=== PATIENT | female | born 1960 | race American Indian/Alaskan Native ===

== ENCOUNTER 2016-08-31 00:13 | Emergency (ER) | payer SELFPAY ==
[2016-08-31] MEDS ORDERED: TORADOL IV ONE (00:50)
[2016-08-31] MEDS ORDERED: CATAPRES PO ONE (00:50)
[2016-08-31] MEDS ORDERED: REGLAN IV ONE (00:50)
[2016-08-31] MEDS ORDERED: BENADRYL IV ONE (00:50)
--- NOTE | 2016-08-31 00:55 | Emergency Department Report ---
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 Patient has been noncompliant with her blood pressure medication and cholesterol medication 1 month. She has been compliant with her aspirin. Patient complains of a 10/10 right-sided headache with some mild eye discomfort and mild eye right blurred vision. Patient denies nausea, vomiting, light sensitivity, or new neurologic deficit. She does not have a primary care doctor. Patient's blood pressure 183/117 and patient appears to the patient's most recent baseline. Allergies/Adverse Reactions: Allergies Penicillins Allergy (Verified 11/06/12 04:01) Unknown Home Medications: Ambulatory Orders Aspirin [Aspirin TAB] 325 mg PO QDAY #30 tablet 01/25/14 Lisinopril/Hydrochlorothiazide [Zestoretic 20-12.5 mg] 1 tab PO BID #60 tablet 01/25/14 Butalb/Acetamin/Caff 50-325-40 [Fioricet] 2 tab PO Q4H PRN #20 tablet 08/31/16 Carvedilol [Coreg] 12.5 mg PO BID #60 tablet 08/31/16 Ibuprofen [Motrin] 800 mg PO Q8HR PRN #30 tablet 08/31/16 Lisinopril/Hydrochlorothiazide [Zestoretic 20-12.5 mg] 1 tab PO QDAY #30 tab Simvastatin [Zocor TAB] 20 mg PO QHS #30 tablet 08/31/16 ED Review of Systems ROS: Stated complaint: HIGH BP Other details as noted in HPI Comment: All other systems reviewed and negative Other: Constitutional: No fevers chills Eyes: As per HPI ENT: No ear pain or throat pain Neck: Denies pain Respiratory: Denies cough wheezing shortness of breath Cardiovascular: Denies chest pain, palpitations, syncope GI: Denies abdominal pain, nausea, vomiting, diarrhea : Denies dysuria, urinary frequency, or urgency Musculoskeletal: Denies back pain, joint swelling Skin: Denies rash, lesions, erythema Neurologic: Denies numbness, weakness Psychiatric: Denies suicidal ideation, hallucinations ED Past Medical Hx - Past Medical History Hx Hypertension: Yes (2012) Hx CVA: Yes (11-05-2012) Hx Heart Attack/AMI: No Hx Congestive Heart Failure: No Hx Diabetes: No Hx Deep Vein Thrombosis: No Hx Pulmonary Embolism: No Hx Liver Disease: No Hx Renal Disease: No Hx Sickle Cell Disease: No Hx Arthritis: No Hx Seizures: No Hx Kidney Stones: No Hx Asthma: No Hx COPD: No Hx Tuberculosis: No Hx Dementia: No - Surgical History Hx Coronary Stent: No Hx Pacemaker: No Hx Internal Defibrillator: No - Social History Smoking Status: Former Smoker - Medications Home Medications: Home Medications Medication Instructions Recorded Confirmed Last Taken Type Aspirin [Aspirin TAB] 325 mg PO QDAY #30 tablet 01/25/14 Unknown Rx Lisinopril/Hydrochlorothiazide 1 tab PO BID #60 tablet 01/25/14 Unknown Rx [Zestoretic 20-12.5 mg] Butalb/Acetamin/Caff 50-325-40 2 tab PO Q4H PRN #20 tablet 08/31/16 Unknown Rx [Fioricet] Carvedilol [Coreg] 12.5 mg PO BID #60 tablet 08/31/16 Unknown Rx Ibuprofen [Motrin] 800 mg PO Q8HR PRN #30 tablet 08/31/16 Unknown Rx Lisinopril/Hydrochlorothiazide 1 tab PO QDAY #30 tab 08/31/16 Unknown Rx [Zestoretic 20-12.5 mg] Simvastatin [Zocor TAB] 20 mg PO QHS #30 tablet 08/31/16 Unknown Rx ED Physical Exam - Other Other exam information: General: No limitations, patient is alert in no acute distress Head exam: Atraumatic, normocephalic Eyes exam: Normal appearance, pupils equal reactive to light, extraocular movements intact. Light sensitivity to right eye ENT: Moist mucous membrane, right maxillary sinus tenderness Neck exam: Normal inspection, full range of motion, no meningismus nontender Respiratory exam: Clear to auscultation bilateral, no wheezes, rales, crackles Cardiovascular: Normal rate and rhythm, normal heart sounds Abdomen: Soft, nondistended, and nontender, with normal bowel sounds, no rebound, or guarding Extremity: Full range of motion normal inspection no deformity Back: Normal Inspection, full range of motion, no tenderness Neurologic: Alert, oriented x3, cranial nerves intact, 4+/5 strength right upper and right lower extremity with decreased sensation to touch compared to the left. Left 5/5 strength. Patient admits with a cane, speech clear and fluid Psychiatric: normal affect, normal mood Skin: Warm, dry, intact ED Course Vital Signs 08/31/16 08/31/16 08/31/16 00:31 01:05 02:33 Temperature 98.2 F 98.2 F Pulse Rate 98 H 98 H 90 Respiratory 18 18 16 Rate Blood Pressure 183/117 Blood Pressure 183/117 158/100 [Left] O2 Sat by Pulse 100 100 98 Oximetry - Reevaluation(s) Reevaluation #1: 08/31/16 00:56 Clonidine, Reglan, Benadryl, and Toradol ordered. CT head and labs pending Reevaluation #2: 08/31/16 03:59 The patient and downward. Started to slightly increased in for lisinopril 20 mg given prior to discharge. Patient's headache improved after receiving additional Dilaudid ED Medical Decision Making - Lab Data Result diagrams: 08/31/16 01:39 08/31/16 01:39 Lab Results 08/31/16 08/31/16 Range/Units 01:39 01:39 WBC 5.7 (4.5-11.0) K/mm3 RBC 4.43 (3.65-5.03) M/mm3 Hgb 12.6 (10.1-14.3) gm/dl Hct 38.3 (30.3-42.9) % MCV 87 (79-97) fl MCH 29 (28-32) pg MCHC 33 (30-34) % RDW 16.9 H (13.2-15.2) % Plt Count 264 (140-440) K/mm3 Lymph % (Auto) 43.2 H (13.4-35.0) % [place] % (Auto) 8.9 H (0.0-7.3) % Eos % (Auto) 4.9 H (0.0-4.3) % Baso % (Auto) 0.6 (0.0-1.8) % Lymph # 2.5 (1.2-5.4) K/mm3 [place] # 0.5 (0.0-0.8) K/mm3 Eos # 0.3 (0.0-0.4) K/mm3 Baso # 0.0 (0.0-0.1) K/mm3 Seg Neutrophils % 42.4 (40.0-70.0) % Seg Neutrophils # 2.4 (1.8-7.7) K/mm3 Sodium 142 (137-145) mmol/L Potassium 3.7 (3.6-5.0) mmol/L Chloride 101.9 (98-107) mmol/L Carbon Dioxide 23 (22-30) mmol/L Anion Gap 21 mmol/L BUN 23 H (7-17) mg/dL Creatinine 1.2 (0.7-1.2) mg/dL Estimated GFR 56 ml/min BUN/Creatinine Ratio 19.16 % Glucose 89 (65-100) mg/dL Calcium 9.1 (8.4-10.2) mg/dL - Radiology Data Radiology results: report reviewed (ct head: naf) - Medical Decision Making Patient's blood pressures trending downward. Patient has a history of hypertension and medication noncompliance. Headache improved. BP-is improving. Patient given dose lisinopril prior to discharge and I will resume her previously prescribed medications. - Differential Diagnosis hypertensive urgency/emergency, migraine, sinusitis, headache Critical Care Time: No Critical care attestation.: If time is entered above; I have spent that time in minutes in the direct care of this critically ill patient, excluding procedure time. ED Disposition Clinical Impression: Uncontrolled hypertension, Noncompliance with medication regimen, Headache Disposition: DC-01 TO HOME OR SELFCARE Is pt being admited?: No Does the pt Need Aspirin: No Condition: Stable Instructions: Hypertension (ED), Acute Headache (ED) Additional Instructions: Take the Medication as prescribed. Follow-up with the clinical doctor provided. Return if symptoms worsen. Prescriptions: Butalb/Acetamin/Caff 50-325-40 [Fioricet] 2 tab PO Q4H PRN #20 tablet PRN Reason: Headache Carvedilol [Coreg] 12.5 mg PO BID #60 tablet Ibuprofen [Motrin] 800 mg PO Q8HR PRN #30 tablet PRN Reason: Pain Lisinopril/Hydrochlorothiazide [Zestoretic 20-12.5 mg] 1 tab PO QDAY #30 tab Simvastatin [Zocor TAB] 20 mg PO QHS #30 tablet Referrals: [facility] [Provider Group] - 2-3 Days GOLDY CLAY MD [Staff Physician] - 2-3 Days Time of Disposition: 03:58
[2016-08-31 02:12] LABS: Basophils % (Auto) 0.6 % (0.0-1.8); Eosinophils % (Auto) 4.9 % (0.0-4.3); Hematocrit 38.3 % (30.3-42.9); Hemoglobin 12.6 gm/dl (10.1-14.3); Mean Corpuscular HGB Conc 33 % (30-34); Mean Corpuscular Hemoglobin 29 pg (28-32); Mean Corpuscular Volume 87 fl (79-97); Platelet Count 264 K/mm3 (140-440); Red Blood Count 4.43 M/mm3 (3.65-5.03); Red Cell Distribution Width 16.9 % (13.2-15.2); White Blood Count 5.7 K/mm3 (4.5-11.0)
[2016-08-31 02:25] LABS: BUN/Creatinine Ratio 19.16; Calcium 9.1 mg/dL (8.4-10.2); Chloride 101.9 mmol/L (98-107); Potassium 3.7 mmol/L (3.6-5.0)
[2016-08-31] MEDS ORDERED: DILAUDID ONE (02:35)
[2016-08-31 02:36] VITALS: BP 158/100
[2016-08-31] MEDS ORDERED: DILAUDID IV ONE (02:45)
--- NOTE | 2016-08-31 02:57 | Cat Scan Report ---
FINAL REPORT PROCEDURE: CT HEAD/BRAIN WO CON TECHNIQUE: Computerized tomography of the head was performed without contrast material. HISTORY: r sided carr, htn COMPARISON: No prior studies are available for comparison. FINDINGS: Skull and scalp: Normal. Paranasal sinuses: Slight opacification of the ethmoid sinuses.. Ventricles and subarachnoid spaces: Normal. Cerebrum: There is no evidence of acute intracranial hemorrhage, hematoma, infarction, midline displacement or mass. Mild periventricular deep white matter changes are noted.. Cerebellum and brainstem: No evidence of hemorrhage, acute infarction or mass. Vasculature: Normal. Comments: None. IMPRESSION: There is no evidence of an acute intracranial process. Mild periventricular deep white matter changes are noted.
[2016-08-31] MEDS ORDERED: ZESTRIL PO ONE (03:48)
[2016-08-31] MEDS ORDERED: HCTZ PO ONE (03:48)
[2016-08-31] MEDS ORDERED: COREG PO ONE (03:49)
== END 2016-08-31 04:30 | disposition home or self-care (01) ==
LOC: ED 00:13
DX: I10 Essential (primary) hypertension (principal); Z91.14 Patient's other noncompliance with medication regimen; Z87.891 Personal history of nicotine dependence
CPT/HCPCS: 36415; 70450; 80048; 85025; 96374; 96375; 99284; J1170; J1200; J1885; J2765

== ENCOUNTER 2016-09-02 03:41 | Emergency (ER) | payer SELFPAY ==
[2016-09-02] MEDS ORDERED: NORMODYNE IV ONE (03:48)
[2016-09-02 04:24] LABS: Basophils % (Auto) 0.5 % (0.0-1.8); Eosinophils % (Auto) 4.2 % (0.0-4.3); Hematocrit 36.7 % (30.3-42.9); Mean Corpuscular HGB Conc 33 % (30-34); Mean Corpuscular Hemoglobin 28 pg (28-32); Mean Corpuscular Volume 86 fl (79-97); Platelet Count 255 K/mm3 (140-440); Red Blood Count 4.28 M/mm3 (3.65-5.03); Red Cell Distribution Width 15.9 % (13.2-15.2); White Blood Count 7.5 K/mm3 (4.5-11.0)
[2016-09-02] MEDS ORDERED: MORPHINE IV ONE (04:30)
[2016-09-02] MEDS ORDERED: MORPHINE ONE (04:35)
[2016-09-02 04:39] LABS: BUN/Creatinine Ratio 21.53; Calcium 9.6 mg/dL (8.4-10.2); Chloride 102.3 mmol/L (98-107); Potassium 3.4 mmol/L (3.6-5.0)
--- NOTE | 2016-09-02 04:46 | Cat Scan Report ---
FINAL REPORT PROCEDURE: CT HEAD/BRAIN WO CON TECHNIQUE: Computerized tomography of the head was performed without contrast material. HISTORY: ENGLISH with hypertension COMPARISON: 08/31/2016 FINDINGS: Skull and scalp: Normal. Paranasal sinuses: Normal. Ventricles and subarachnoid spaces: There is moderate central and cortical atrophy. There is no hydrocephalus.. Cerebrum: No evidence of hemorrhage, acute infarction or mass. There is periventricular deep white matter ischemic gliosis. The free wall there are multiple old lacunar infarcts in the basal ganglia, thalami and deep white matter bilaterally. Cerebellum and brainstem: No evidence of hemorrhage, acute infarction or mass. Vasculature: Normal. Comments: None. IMPRESSION: There are chronic involutional changes. There is no acute abnormality.
[2016-09-02] MEDS ORDERED: APRESOLINE IV ONE (05:13)
--- NOTE | 2016-09-02 05:58 | Emergency Department Report ---
HPI - General Chief Complaint: High BP Time Seen by Provider: 09/02/16 05:53 - HPI HPI: This is a 56-year-old Afro-[place] female presents to the emergency department via EMS with complaint of a right-sided headache and elevated blood pressure. The patient has a history of hypertensive issues and medication noncompliance. However the patient recently was here to the [facility] for similar symptoms and was restarted on all of her previous blood pressure medications that she says she has been taking them compliantly. The headache is to the right side of her head but she denies any vision change, slurred speech or any neurological deficits. She also denies any chest pain, shortness breath, fever. She did not take anything for her symptoms prior to presentation. All this began just prior to presentation and woke her from sleep. She has a past nuchal history of CVA with some mild right-sided deficits in the distal extremities, as well as hypertension. She does not have a primary care doctor. No recent travel or sick contacts at home. ED Past Medical Hx - Past Medical History Previous Medical History?: Yes Hx Hypertension: Yes (2012) Hx CVA: Yes (11-05-2012) Hx Heart Attack/AMI: No Hx Congestive Heart Failure: No Hx Diabetes: No Hx Deep Vein Thrombosis: No Hx Pulmonary Embolism: No Hx Liver Disease: No Hx Renal Disease: No Hx Sickle Cell Disease: No Hx Arthritis: No Hx Seizures: No Hx Kidney Stones: No Hx Asthma: No Hx COPD: No Hx Tuberculosis: No Hx Dementia: No - Surgical History Hx Coronary Stent: No Hx Pacemaker: No Hx Internal Defibrillator: No - Social History Smoking Status: Never Smoker Substance Use Type: None - Medications Home Medications: Home Medications Medication Instructions Recorded Confirmed Last Taken Type Aspirin [Aspirin TAB] 325 mg PO QDAY #30 tablet 01/25/14 09/02/16 Unknown Rx Lisinopril/Hydrochlorothiazide 1 tab PO BID #60 tablet 01/25/14 09/02/16 Unknown Rx [Zestoretic 20-12.5 mg] Butalb/Acetamin/Caff 50-325-40 2 tab PO Q4H PRN #20 tablet 08/31/16 09/02/16 Unknown Rx [Fioricet] Carvedilol [Coreg] 12.5 mg PO BID #60 tablet 08/31/16 09/02/16 Unknown Rx Ibuprofen [Motrin] 800 mg PO Q8HR PRN #30 tablet 08/31/16 09/02/16 Unknown Rx Lisinopril/Hydrochlorothiazide 1 tab PO QDAY #30 tab 08/31/16 09/02/16 Unknown Rx [Zestoretic 20-12.5 mg] Simvastatin [Zocor TAB] 20 mg PO QHS #30 tablet 08/31/16 09/02/16 Unknown Rx ED Review of Systems ROS: Stated complaint: HIGH BP /HEADACHE Other details as noted in HPI Comment: All other systems reviewed and negative Constitutional: denies: chills, fever Eyes: denies: eye pain, eye discharge, vision change ENT: denies: ear pain, throat pain Respiratory: denies: cough, shortness of breath, wheezing Cardiovascular: denies: chest pain, palpitations Gastrointestinal: denies: abdominal pain, nausea, diarrhea Genitourinary: denies: urgency, dysuria, discharge Musculoskeletal: denies: back pain, joint swelling, arthralgia Skin: denies: rash, lesions Neurological: headache. denies: weakness, numbness Physical Exam - Physical Exam Vital Signs: Vital Signs 09/02/16 09/02/16 09/02/16 03:43 04:00 04:35 Temperature 98.4 F Pulse Rate 93 H 87 Respiratory 18 18 Rate Blood Pressure 238/138 256/138 09/02/16 09/02/16 05:05 05:29 Temperature Pulse Rate Respiratory 18 Rate Blood Pressure 181/117 Physical Exam: GENERAL: The patient is well-developed well-nourished. HEENT: Normocephalic. Atraumatic. Extraocular motions are intact. Patient has moist mucous membranes. Pupils equal reactive to light bilaterally. No nystagmus. NECK: Supple. Trachea is midline. CHEST/LUNGS: Clear to auscultation. There is no respiratory distress noted. HEART/CARDIOVASCULAR: Regular. There is no tachycardia. There is no gallop rub or murmur. ABDOMEN: Abdomen is soft, nontender. Patient has normal bowel sounds. There is no abdominal distention. SKIN: Skin is warm and dry. NEURO: The patient is awake, alert, and oriented. The patient is cooperative. The patient has no focal neurologic deficits. The patient has normal speech. Cranial nerves II-12 grossly intact. No pronator drift. MUSCULOSKELETAL: There is no tenderness or deformity. There is no limitation range of motion. There is no evidence of acute injury. Muscle strength 5 out of 5 upper and lower extremities bilaterally. ED Course Vital Signs 09/02/16 09/02/16 09/02/16 03:43 04:00 04:35 Temperature 98.4 F Pulse Rate 93 H 87 Respiratory 18 18 Rate Blood Pressure 238/138 256/138 09/02/16 09/02/16 05:05 05:29 Temperature Pulse Rate Respiratory 18 Rate Blood Pressure 181/117 ED Medical Decision Making - Lab Data Result diagrams: 09/02/16 04:00 09/02/16 04:00 - EKG Data -: EKG Interpreted by Me EKG shows normal: sinus rhythm, axis, intervals, QRS complexes, ST-T waves Rate: normal - EKG Data When compared to previous EKG there are: previous EKG unavailable - Radiology Data Radiology results: report reviewed CT of the head does not show any acute process including no hemorrhage, mass, shift, diffuse edema or skull fracture. - Medical Decision Making 56-year-old female presents to the emergency department with a right-sided headache and uncontrolled hypertension. This is very similar to her previous visit. She does not appear to have any focal, motor or sensory deficits in her cranial nerves are intact. Blood pressure is about systolic to 30 upon arrival. She was given a dose of labetalol, pain medication for her headache, and then a small dose of hydralazine and her blood pressure came down to a much more reasonable level. The headache completely resolved. Labs are mostly unremarkable. There is some mild renal insufficiency but it is consistent with previous visits and most likely secondary to her history of uncontrolled hypertension. Normal thyroid function. She appears safe for discharge home at this time. She still has blood pressure medications for her previous visit. She'll be given multiple referrals for primary care clinics. She will return to the ER with any worsening of her symptoms or any acute distress. - Differential Diagnosis hypertensive urgency, TIA, tension headache, brain bleed Critical Care Time: No Critical care attestation.: If time is entered above; I have spent that time in minutes in the direct care of this critically ill patient, excluding procedure time. ED Disposition Clinical Impression: Hypertensive urgency Headache Qualifiers: Headache type: unspecified Headache chronicity pattern: acute headache Intractability: not intractable Qualified Code(s): R51 - Headache Disposition: - TO HOME OR SELFCARE Is pt being admited?: No Condition: Stable Instructions: Acute Headache (ED), Hypertension (ED) Additional Instructions: Please follow-up with one of the primary care clinics that you have been given a referral to. Return to the emergency department with any worsening of your symptoms or any acute distress. Try to stay away from foods that are high in salt and caffeinated products to assist with her blood pressure. Keep a blood pressure log. Referrals: PRIMARY CARE, [Primary Care Provider] - 3-[address] [facility] [place] [Outside] - 3-5 Days [facility] [Outside] - 3-5 Days [facility] [Outside] - 3-5 Days [facility] [Outside] - 3-5 Days Time of Disposition: 06:01
[2016-09-02] MEDS ORDERED: ZOFRAN IV ONE (06:18)
[2016-09-02 07:44] VITALS: BP 143/86
== END 2016-09-02 08:30 | disposition home or self-care (01) ==
LOC: ED 03:41
DX: I10 Essential (primary) hypertension (principal); Z86.73 Personal history of transient ischemic attack (TIA), and cerebral infarction without residual deficits; Z79.82 Long term (current) use of aspirin
CPT/HCPCS: 36415; 70450; 80048; 84443; 85025; 93005; 93010; 96374; 96375; 99284; J0360; J2270; J2405

== ENCOUNTER 2017-04-19 09:50 | Emergency (ER) | payer SELFPAY ==
[2017-04-19] MEDS ORDERED: CATAPRES ONE (10:51)
[2017-04-19] MEDS ORDERED: CATAPRES PO ONE (10:54)
[2017-04-19] MEDS ORDERED: NORCO 7.5/325 PO ONE (12:50)
--- NOTE | 2017-04-19 13:31 | Emergency Department Report ---
Blank Doc - Documentation Documentation: Patient is a 56-year-old black female who is presenting with left foot pain. Patient has pain in the left lateral foot near the pinky toe. Patient states is been present for approximately 2 weeks. 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 Patient also has elevated blood pressure as well. Patient states she doesn't take her blood pressure medicines like she should. Patient denies any signs of end organ damage. Patient denies headache chest pain shortness of breath decreased urination at this time. Patient will have x-ray of her foot taken an outpatient with intermittent blood pressure control.
--- NOTE | 2017-04-19 14:06 | XRay Report ---
LEFT FOOT, 3 views: History: Small toe pain Mild osteopenia. Mild osteoarthritic changes throughout the left foot. No evidence for fracture, erosive joint pathology or bone lesion. Soft tissues are unremarkable. IMPRESSION: No acute injury is appreciated. Mild osteoarthritis.
--- NOTE | 2017-04-19 14:50 | Emergency Department Report ---
ED Lower Extremity HPI - General Chief Complaint: Extremity Injury, Lower Stated Complaint: LEFT FOOT TOE PAIN Time Seen by Provider: 04/19/17 12:45 Source: patient Mode of arrival: Ambulatory Limitations: No Limitations - History of Present Illness Initial Comments: This is a 56-year-old female nontoxic, well nourished in appearance, no acute signs of distress presents to the ED with c/o of left foot pain near the pinky toe acute on chronic 2 weeks. 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 Denies any trauma to the region. Patient denies any numbness, tingling, joint swelling, joint redness, fever, chills, nausea, vomiting, chest pain or shortness of breath. Patient also states she is noncompliant with her medication as she is out of her blood pressure medication. Patient stated she currently takes 3 different medication and needs refill. Patient denies any headache or blurred vision. Patient denies any signs of end organ damage. Patient denies any decreased urination. Patient states allergies to penicillin with past medical history of hypertension , CVA. MD Complaint: foot injury -: week(s) (2) Injury: Foot: Left Place: work Severity: mild Severity scale (0 -10): 8 Improves With: immobilization Worsens With: movement Associated Symptoms: able to partially bear weight, ambulatory. denies: snap/ pop sensation, swelling, numbness, tingling, unable to bear weight - Related Data Previous Rx's Medication Instructions Recorded Last Taken Type Aspirin [Aspirin TAB] 325 mg PO QDAY #30 tablet 01/25/14 Unknown Rx Carvedilol [Coreg] 12.5 mg PO BID #60 tablet 08/31/16 Unknown Rx Ibuprofen [Motrin] 800 mg PO Q8HR PRN #30 tablet 08/31/16 Unknown Rx Lisinopril/Hydrochlorothiazide 1 tab PO QDAY #30 tab 08/31/16 Unknown Rx [Zestoretic 20-12.5 mg] Simvastatin [Zocor TAB] 20 mg PO QHS #30 tablet 08/31/16 Unknown Rx Carvedilol 12.5 mg PO BID #60 tablet 04/19/17 Unknown Rx Ibuprofen [Motrin] 600 mg PO Q8H PRN #30 tablet 04/19/17 Unknown Rx Lisinopril/Hydrochlorothiazide 1 each PO DAILY #30 tablet 04/19/17 Unknown Rx [Zestoretic 20-12.5 mg] Simvastatin 20 mg PO QHS #30 tablet 04/19/17 Unknown Rx Allergies Allergy/AdvReac Type Severity Reaction Status Date / Time Penicillins Allergy Unknown Verified 11/06/12 04:01 ED Review of Systems ROS: Stated complaint: LEFT FOOT TOE PAIN Other details as noted in HPI Constitutional: denies: chills, fever Eyes: denies: eye pain, eye discharge, vision change ENT: denies: ear pain, throat pain Respiratory: denies: cough, shortness of breath, wheezing Cardiovascular: denies: chest pain, palpitations Endocrine: no symptoms reported Gastrointestinal: denies: abdominal pain, nausea, diarrhea Genitourinary: denies: urgency, dysuria, discharge Musculoskeletal: arthralgia. denies: back pain, joint swelling Skin: denies: rash, lesions Neurological: denies: headache, weakness, paresthesias Psychiatric: denies: anxiety, depression Hematological/Lymphatic: denies: easy bleeding, easy bruising ED Past Medical Hx - Past Medical History Previous Medical History?: Yes Hx Hypertension: Yes (2012) Hx CVA: Yes (11-05-2012) Hx Heart Attack/AMI: No Hx Congestive Heart Failure: No Hx Diabetes: No Hx Deep Vein Thrombosis: No Hx Pulmonary Embolism: No Hx Liver Disease: No Hx Renal Disease: No Hx Sickle Cell Disease: No Hx Arthritis: No Hx Seizures: No Hx Kidney Stones: No Hx Asthma: No Hx COPD: No Hx Tuberculosis: No Hx Dementia: No - Surgical History Past Surgical History?: No Hx Coronary Stent: No Hx Pacemaker: No Hx Internal Defibrillator: No - Social History Smoking Status: Former Smoker Substance Use Type: Alcohol - Medications Home Medications: Home Medications Medication Instructions Recorded Confirmed Last Taken Type Aspirin [Aspirin TAB] 325 mg PO QDAY #30 tablet 01/25/14 04/19/17 Unknown Rx Carvedilol [Coreg] 12.5 mg PO BID #60 tablet 08/31/16 04/19/17 Unknown Rx Ibuprofen [Motrin] 800 mg PO Q8HR PRN #30 tablet 08/31/16 04/19/17 Unknown Rx Lisinopril/Hydrochlorothiazide 1 tab PO QDAY #30 tab 08/31/16 04/19/17 Unknown Rx [Zestoretic 20-12.5 mg] Simvastatin [Zocor TAB] 20 mg PO QHS #30 tablet 08/31/16 04/19/17 Unknown Rx Carvedilol 12.5 mg PO BID #60 tablet 04/19/17 Unknown Rx Ibuprofen [Motrin] 600 mg PO Q8H PRN #30 tablet 04/19/17 Unknown Rx Lisinopril/Hydrochlorothiazide 1 each PO DAILY #30 tablet 04/19/17 Unknown Rx [Zestoretic 20-12.5 mg] Simvastatin 20 mg PO QHS #30 tablet 04/19/17 Unknown Rx ED Physical Exam - General Limitations: No Limitations General appearance: alert, in no apparent distress - Head Head exam: Present: atraumatic, normocephalic - Eye Eye exam: Present: normal appearance, PERRL, EOMI Pupils: Present: normal accommodation - ENT ENT exam: Present: normal exam, normal orophraynx, mucous membranes moist, TM's normal bilaterally, normal external ear exam - Neck Neck exam: Present: normal inspection, full ROM. Absent: tenderness, meningismus, lymphadenopathy, thyromegaly - Respiratory Respiratory exam: Present: normal lung sounds bilaterally. Absent: respiratory distress, wheezes, rales, rhonchi, stridor, chest wall tenderness, accessory muscle use, decreased breath sounds, prolonged expiratory - Cardiovascular Cardiovascular Exam: Present: regular rate, normal rhythm, normal heart sounds. Absent: bradycardia, tachycardia, irregular rhythm, systolic murmur, diastolic murmur, rubs, gallop - GI/Abdominal GI/Abdominal exam: Present: soft, normal bowel sounds. Absent: distended, tenderness, guarding, rebound, rigid, diminished bowel sounds - Rectal Rectal exam: Present: deferred - Extremities Exam Extremities exam: Present: normal inspection, full ROM, tenderness, normal capillary refill. Absent: pedal edema, joint swelling, calf tenderness - Expanded Lower Extremity Exam Left Hip exam: Present: normal inspection, full ROM Upper Leg exam: Present: normal inspection, full ROM Knee exam: Present: normal inspection, full ROM Lower Leg exam: Present: normal inspection, full ROM Ankle exam: Present: normal inspection, full ROM. Absent: tenderness, swelling , abrasion, laceration, ecchymosis, deformity, crepidus, dislocation, erythema, anterior draw sign Foot/Toe exam: Present: normal inspection, full ROM, tenderness. Absent: swelling, abrasion, laceration, ecchymosis, deformity, crepidus, dislocation, erythema, amputation, puncture wound, calcaneal tenderness, tenderness at base of 5th metatarsal, nail avulsion, subungual hematoma Neuro vascular tendon exam: Present: no vascular compromise. Absent: pulse deficit, abnormal cap refill, motor deficit, sensory deficit, tendon deficit, extremity cold to touch, pallor, abnormal 2-point discrimination, decreased fine /light touch, foot drop, peroneal nerve deficit, significant pain with passive ROM of distal joint Gait: Positive: observed and limited by pain 1 - pain - Back Exam Back exam: Present: normal inspection, full ROM. Absent: tenderness, CVA tenderness (R), CVA tenderness (L), muscle spasm, paraspinal tenderness, vertebral tenderness, rash noted - Neurological Exam Neurological exam: Present: alert, oriented X3, CN II-XII intact, normal gait, reflexes normal - Psychiatric Psychiatric exam: Present: normal affect, normal mood - Skin Skin exam: Present: warm, dry, intact, normal color. Absent: rash ED Course Vital Signs 04/19/17 04/19/17 04/19/17 10:43 10:48 10:54 Temperature 98.5 F Pulse Rate 89 74 Respiratory 16 Rate Blood Pressure 250/133 Blood Pressure 250/133 [Right] O2 Sat by Pulse 99 Oximetry 04/19/17 04/19/17 04/19/17 12:54 12:57 13:01 Temperature Pulse Rate 75 Respiratory 16 18 16 Rate Blood Pressure Blood Pressure 168/113 [Right] O2 Sat by Pulse 98 98 Oximetry - Reevaluation(s) Reevaluation #1: 04/19/17 14:51 Patient is speaking in full sentences with no signs of distress noted. - Consultations Consultation #1: 04/19/17 14:52 Patient has been consulted with Dr. Lambert about patient history, physical exam , and labs and examined and screened patient and agrees to ED plan of care and discharge plan of care. ED Lower Extremity MDM - Medical Decision Making this is a 56-year-old female that presents with hypertension and left foot strain. Patient is stable and was examined by me and Dr. Lambert. X-ray has been obtained and dictated by radiologist within normal limits. Patient is notified of the x-ray results with focus noted by the patient. Patient received Catapres in the ED which blood pressure has decreased. Patient's medication has been refilled for her blood pressure. Patient was instructed to keep a daily diary of blood pressure and presented to primary care doctor. Patient received a ortho shoe at discharge. Patient was also instructed to Follow-up with a primary care doctor in 3-5 days or if symptoms worsen and continue return to emergency room as soon as possible. At time of discharge, the patient does not seem toxic or ill in appearance. No acute signs of distress noted. Patient agrees to discharge treatment plan of care. No further questions noted by the patient. Critical care attestation.: If time is entered above; I have spent that time in minutes in the direct care of this critically ill patient, excluding procedure time. ED Disposition Clinical Impression: Hypertension Qualifiers: Hypertension type: unspecified Qualified Code(s): I10 - Essential (primary) hypertension Strain of left foot Qualifiers: Encounter type: initial encounter Qualified Code(s): S96.912A - Strain of unspecified muscle and tendon at ankle and foot level, left foot, initial encounter Disposition: TO HOME OR SELFCARE Is pt being admited?: No Does the pt Need Aspirin: No Condition: Stable Instructions: Hypertension (ED) Additional Instructions: Follow-up with a primary care doctor in 3-5 days or if symptoms worsen and continue return to emergency room as soon as possible. Prescriptions: Simvastatin 20 mg PO QHS #30 tablet Carvedilol 12.5 mg PO BID #60 tablet Ibuprofen [Motrin] 600 mg PO Q8H PRN #30 tablet PRN Reason: Pain Lisinopril/Hydrochlorothiazide [Zestoretic 20-12.5 mg] 1 each PO DAILY #30 tablet Referrals: PRIMARY MD DEVIN [Primary Care Provider] - 3-5 Days TENNILLE ALEJANDRE MD [Staff Physician] - 3-5 Days [facility] [Outside] - 3-5 Days [facility] [Outside] - 3-5 Days Forms: Work/School Release Form(ED)
[2017-04-19 15:11] VITALS: BP 153/112
== END 2017-04-19 15:17 | disposition home or self-care (01) ==
LOC: ED 09:50
DX: S96.912A Strain of unspecified muscle and tendon at ankle and foot level, left foot, initial encounter (principal); I10 Essential (primary) hypertension; G89.29 Other chronic pain; Z91.14 Patient's other noncompliance with medication regimen; Z86.73 Personal history of transient ischemic attack (TIA), and cerebral infarction without residual deficits; Z88.0 Allergy status to penicillin; X58.XXXA Exposure to other specified factors, initial encounter; Y93.89 Activity, other specified; Y99.0 Civilian activity done for income or pay; Y92.69 Other specified industrial and construction area as the place of occurrence of the external cause
CPT/HCPCS: 99283

== ENCOUNTER 2017-04-22 08:33 | Emergency (ER) | payer SELFPAY ==
[2017-04-22] MEDS ORDERED: APRESOLINE IV ONE (08:44)
[2017-04-22] MEDS ORDERED: TYLENOL #3 PO ONE (08:45)
[2017-04-22 09:19] LABS: Basophils % (Auto) 0.6 % (0.0-1.8); Eosinophils # (Auto) 0.2 K/mm3 (0.0-0.4); Eosinophils % (Auto) 3.1 % (0.0-4.3); Hematocrit 40.4 % (30.3-42.9); Hemoglobin 12.8 gm/dl (10.1-14.3); Lymphocytes # (Auto) 1.6 K/mm3 (1.2-5.4); Mean Corpuscular HGB Conc 32 % (30-34); Mean Corpuscular Hemoglobin 28 pg (28-32); Mean Corpuscular Volume 89 fl (79-97); Monocytes # (Auto) 0.7 K/mm3 (0.0-0.8); Monocytes % (Auto) 10.5 % (0.0-7.3); Platelet Count 264 K/mm3 (140-440); Red Blood Count 4.54 M/mm3 (3.65-5.03); Red Cell Distribution Width 14.9 % (13.2-15.2)
[2017-04-22 09:23] LABS: BUN/Creatinine Ratio 19; Blood Urea Nitrogen 21 mg/dL (7-17); Hemolysis Index 27
[2017-04-22] MEDS ORDERED: NORMODYNE IV ONE (09:47)
--- NOTE | 2017-04-22 09:48 | Cat Scan Report ---
CT HEAD WITHOUT CONTRAST: HISTORY: Head ache. TECHNIQUE: Sequential 2.5mm CT images. COMPARISON: 09/02/16. FINDINGS: Cerebral Parenchyma: Mild nonspecific chronic white matter changes are stable since the previous exam. There are 2 chronic lacunar infarcts in the right thalamus and 2 chronic lacunar infarcts in the left thalamus which are also unchanged. The remaining brain parenchyma is within normal limits. The lion-white interface is well-defined. Cerebellum: Within normal limits. Brainstem: Within normal limits. Ventricles: Normal. Sella: Normal. Extra-axial spaces: Normal. Basal Cisterns: Normal. Intracranial Hemorrhage: None. Midline Shift: None. Calvarium: Normal. Sinuses: Mild chronic ethmoid sinusitis. Mastoid Air Cells: Normal. Visualized Orbits: Normal. IMPRESSION: Chronic white matter changes and chronic lacunar infarcts in both basal ganglia which are unchanged since 09/02/16. No acute intracranial process is identified. Mild chronic ethmoid sinusitis.
[2017-04-22] MEDS ORDERED: BENADRYL IV ONE (10:48)
[2017-04-22] MEDS ORDERED: REGLAN IV ONE (10:48)
[2017-04-22] MEDS ORDERED: TORADOL IV ONE (10:48)
--- NOTE | 2017-04-22 11:31 | XRay Report ---
AP CHEST: HISTORY: chest pain AP view of the chest demonstrates a normal mediastinal and cardiac contour with clear lungs and normal bony and soft tissue structures. IMPRESSION: Unremarkable AP chest.
--- NOTE | 2017-04-22 12:05 | Emergency Department Report ---
HPI - General Chief Complaint: Chest Pain Time Seen by Provider: 04/22/17 08:44 - HPI HPI: The patient is a 56-year-old female who presents for evaluation of headache. The patient reports a left frontal headache since 6 AM this morning, aching in quality, currently 7/10 in severity, exacerbated with position changes. She also has a secondary complaint of constant mild achy right-sided chest pain since this morning as well, improved since onset and nearly resolved. She states that her headache is not the worse headache of her life, denied which her out of sleep, is not thunderclap in quality. The patient denies fever, head injury or trauma to the chest, neck pain or neck stiffness, dyspnea, cough, hemoptysis, syncope, vision or hearing changes, smell or taste changes, paresthesias, facial drooping, slurred speech, seizure-like activity, urine or bowel incontinence or retention, or other focal neurological deficit. ED Past Medical Hx - Past Medical History Previous Medical History?: Yes Hx Hypertension: Yes (2012) Hx CVA: Yes (11-05-2012) Hx Heart Attack/AMI: No Hx Congestive Heart Failure: No Hx Diabetes: No Hx Deep Vein Thrombosis: No Hx Pulmonary Embolism: No Hx Liver Disease: No Hx Renal Disease: No Hx Sickle Cell Disease: No Hx Arthritis: No Hx Seizures: No Hx Kidney Stones: No Hx Asthma: No Hx COPD: No Hx Tuberculosis: No Hx Dementia: No - Surgical History Past Surgical History?: No Hx Coronary Stent: No Hx Pacemaker: No Hx Internal Defibrillator: No - Social History Smoking Status: Former Smoker Substance Use Type: Alcohol - Medications Home Medications: Home Medications Medication Instructions Recorded Confirmed Last Taken Type Aspirin [Aspirin TAB] 325 mg PO QDAY #30 tablet 01/25/14 04/22/17 04/21/17 Rx Carvedilol 12.5 mg PO BID #60 tablet 04/19/17 04/22/17 04/21/17 Rx Ibuprofen [Motrin] 600 mg PO Q8H PRN #30 tablet 04/19/17 04/22/17 04/21/17 Rx Lisinopril/Hydrochlorothiazide 1 each PO DAILY #30 tablet 04/19/17 04/22/1709/01 Rx [Zestoretic 20-12.5 mg] Simvastatin 20 mg PO QHS #30 tablet 04/19/17 04/22/17 04/21/17 Rx Aspirin [Aspirin TAB] 325 mg PO QDAY 04/22/17 04/22/17 04/21/17 History Azithromycin [Zithromax Z-CHICO] 250 mg PO QDAY #6 tablet 04/22/17 Unknown Rx Butalb/Acetaminophen/Caffeine 1 - 2 cap PO Q6HR PRN #12 cap 04/22/17 Unknown Rx [Fioricet 50-300-40 mg CAP] Ibuprofen [Motrin] 800 mg PO Q8HR PRN #15 tablet 04/22/17 Unknown Rx [place]-3S/Dha/Epa/Fish Oil [Fish 1 each PO QDAY 04/22/17 04/22/17 04/21/17 History Oil [place]-3 Softgel] ED Review of Systems ROS: Stated complaint: HEAD PAIN Other details as noted in HPI Constitutional: denies: fever ENT: denies: throat or neck pain Respiratory: denies: cough, shortness of breath Cardiovascular: reports: chest pain Endocrine: denies unexplained weight loss or gain Gastrointestinal: denies: abdominal pain, nausea Genitourinary: denies: dysuria Musculoskeletal: denies: leg swelling Skin: denies: rash Neurological: reports headache Hematological/Lymphatic: denies: easy bleeding or easy bruising Psych: denies sadness or hopelessness Physical Exam - Physical Exam Vital Signs: Vital Signs 04/22/17 04/22/17 04/22/17 08:36 08:37 08:45 Temperature 98.8 F Pulse Rate 89 81 Respiratory 18 13 Rate Blood Pressure 231/142 220/145 O2 Sat by Pulse 100 98 99 Oximetry 04/22/17 04/22/17 04/22/17 09:00 09:08 09:15 Temperature Pulse Rate 83 81 92 H Respiratory 15 16 Rate Blood Pressure 236/133 236/133 229/124 O2 Sat by Pulse 99 100 Oximetry 04/22/17 04/22/17 04/22/17 09:31 09:57 10:00 Temperature Pulse Rate 96 H 81 Respiratory 17 Rate Blood Pressure 229/124 204/107 188/110 O2 Sat by Pulse 100 100 Oximetry 04/22/17 04/22/17 04/22/17 10:31 11:00 11:30 Temperature Pulse Rate 82 86 83 Respiratory 21 14 15 Rate Blood Pressure 160/92 173/101 152/91 O2 Sat by Pulse 100 100 99 Oximetry Physical Exam: General: well-nourished, well-developed, no acute distress Head: Normocephalic, atraumatic Eyes: normal sclera, PERRL, EOM intact ENT: Mucous membranes are pink and moist Neck: trachea midline, neck supple, No neck stiffness, no cervical adenopathy Respiratory: Breath sounds equal bilaterally, no wheezing, rales, or rhonchi Cardio: S1 and S2 present, no murmurs, rubs, gallops, capillary refill is brisk Abdomen: Normoactive bowel sounds, soft abdomen, no rigidity, no guarding or rebound tenderness Musc: No pitting edema Skin: No rash Neuro: alert oriented x4, normal cognition, speech normal, no facial drooping, no uvula or tongue deviation on protrusion, no deficit with rotation of neck or shoulder shrug, no obvious gross motor deficit in the upper or lower extremities with flexion or extension at the shoulder, elbow, wrist, hip, knee, or ankle bilaterally, no obvious gross sensation deficit to crude touch or 2 pt discrimination, 2+ symmetric reflexes on DTR testing, no coordination deficit with [id number] or [id number] testing, romberg negative, patient able to to ambulate without abnormal gait Psych: Normal affect ED Course Vital Signs 04/22/17 04/22/17 04/22/17 08:36 08:37 08:45 Temperature 98.8 F Pulse Rate 89 81 Respiratory 18 13 Rate Blood Pressure 231/142 220/145 O2 Sat by Pulse 100 98 99 Oximetry 04/22/17 04/22/17 04/22/17 09:00 09:08 09:15 Temperature Pulse Rate 83 81 92 H Respiratory 15 16 Rate Blood Pressure 236/133 236/133 229/124 O2 Sat by Pulse 99 100 Oximetry 04/22/17 04/22/17 04/22/17 09:31 09:57 10:00 Temperature Pulse Rate 96 H 81 Respiratory 17 Rate Blood Pressure 229/124 204/107 188/110 O2 Sat by Pulse 100 100 Oximetry 04/22/17 04/22/17 04/22/17 10:31 11:00 11:30 Temperature Pulse Rate 82 86 83 Respiratory 21 14 15 Rate Blood Pressure 160/92 173/101 152/91 O2 Sat by Pulse 100 100 99 Oximetry ED Medical Decision Making - Lab Data Result diagrams: 04/22/17 08:55 04/22/17 08:55 - Medical Decision Making The patient was seen and examined by myself. The patient is placed on a insurance sales agent and continuous pulse ox. On initial evaluation, the patient was found to be in no distress. EKG was negative for findings suggestive of acute cardiac infarct. Labs and imaging are obtained. The patient is given pain medicine. Chest x-ray is negative for pneumothorax, focal consolidation, pulmonary vascular congestion, pleural effusion, or other obvious acute cardiopulmonary disease process. Lab results were non-concerning including levels of troponin, WBC, hemoglobin, hematocrit, electrolytes, renal function. CT scan the head is negative for acute intracranial disease process. The patient was reevaluated and reported that their symptoms were markedly improved. As the patient has a MELLO risk score less than 2, and a well's score less than 2, the patient is at low risk of ACS or pulmonary emboli etiology of their symptoms. The patient is stable for discharge with outpatient follow-up. The patient is given follow-up and return instructions. The patient expressed understanding and agreed with the plan. The patient is discharged in stable condition. Critical care attestation.: If time is entered above; I have spent that time in minutes in the direct care of this critically ill patient, excluding procedure time. ED Disposition Clinical Impression: Acute chest pain, Acute non intractable tension-type headache Acute ethmoidal sinusitis Qualifiers: Recurrence: non-recurrent Qualified Code(s): J01.20 - Acute ethmoidal sinusitis , unspecified Disposition: - TO HOME OR SELFCARE Is pt being admited?: No Does the pt Need Aspirin: No Condition: Stable Instructions: Chest Pain (ED), Sinusitis (ED), Migraine Headache (ED) Referrals: PRIMARY CARE, [Primary Care Provider] - 3-5 Days Time of Disposition: 11:05
[2017-04-22 12:06] VITALS: BP 122/75
== END 2017-04-22 12:31 | disposition home or self-care (01) ==
LOC: ED 08:33
DX: G44.209 Tension-type headache, unspecified, not intractable (principal); J01.20 Acute ethmoidal sinusitis, unspecified; R07.9 Chest pain, unspecified; I10 Essential (primary) hypertension; Z86.73 Personal history of transient ischemic attack (TIA), and cerebral infarction without residual deficits; Z88.0 Allergy status to penicillin; Z87.891 Personal history of nicotine dependence
CPT/HCPCS: 36415; 70450; 71045; 80048; 84484; 85025; 93005; 93010; 96374; 96375; 99285; J0360; J1200; J1885; J2765

== ENCOUNTER 2017-07-03 11:03 | Emergency (ER) | payer OTHER ==
[2017-07-03] MEDS ORDERED: ATIVAN PO ONE (11:55)
[2017-07-03] MEDS ORDERED: CATAPRES PO ONE (11:55)
--- NOTE | 2017-07-03 12:07 | Emergency Department Report ---
ED General Adult HPI - General Chief complaint: High BP Stated complaint: HEADACHE/NOSE BLEED Time Seen by Provider: 07/03/17 11:54 Source: EMS Mode of arrival: Ambulatory Limitations: No Limitations - History of Present Illness Initial comments: History of poorly controlled hypertension Her blood pressure p presents with a BP at triage of 259/143 in the room now 200 /100 she is here for evaluation of a mild headache no sudden onset of acute exertional headache with a nosebleed that is resolved. She does take aspirin she has been out of her blood pressure pills she does take lisinopril HCTZ with Coreg with noncompliance. No chest pain no abdominal pain no shortness of breath no other complaints nosebleed is resolved as of history of headaches this headache is similar to previous patient states she has had a previous old small stroke but she denies any new focal neuro deficits no numbness tingling or weakness chronic mild residual deficit but nothing acute -: Gradual Radiation: non-radiation Severity scale (0 -10): 0 Associated Symptoms: denies other symptoms. denies: confusion, chest pain, cough, diaphoresis, fever/chills, headaches, loss of appetite, malaise, nausea/ vomiting, rash, seizure, shortness of breath, syncope, weakness - Related Data Home Medications Medication Instructions Recorded Confirmed Last Taken Aspirin [Aspirin TAB] 325 mg PO QDAY 04/22/17 04/22/17 04/21/17 [place]-3S/Dha/Epa/Fish Oil [Fish 1 each PO QDAY 04/22/17 04/22/17 04/21/17 Oil [place]-3 Softgel] Previous Rx's Medication Instructions Recorded Last Taken Type Aspirin [Aspirin TAB] 325 mg PO QDAY #30 tablet 01/25/14 04/21/17 Rx Carvedilol 12.5 mg PO BID #60 tablet 04/19/17 04/21/17 Rx Ibuprofen [Motrin] 600 mg PO Q8H PRN #30 tablet 04/19/17 04/21/17 Rx Lisinopril/Hydrochlorothiazide 1 each PO DAILY #30 tablet 04/19/17 04/21/17 Rx [Zestoretic 20-12.5 mg] Simvastatin 20 mg PO QHS #30 tablet 04/19/17 04/21/17 Rx Azithromycin [Zithromax Z-CHICO] 250 mg PO QDAY #6 tablet 04/22/17 Unknown Rx Butalb/Acetaminophen/Caffeine 1 - 2 cap PO Q6HR PRN #12 cap 04/22/17 Unknown Rx [Fioricet 50-300-40 mg CAP] Ibuprofen [Motrin] 800 mg PO Q8HR PRN #15 tablet 04/22/17 Unknown Rx Allergies Allergy/AdvReac Type Severity Reaction Status Date / Time Penicillins Allergy Unknown Verified 11/06/12 04:01 ED Review of Systems ROS: Stated complaint: HEADACHE/NOSE BLEED Other details as noted in HPI Comment: All other systems reviewed and negative Constitutional: denies: diaphoresis, fever, malaise Eyes: denies: eye discharge, vision change ENT: denies: dental pain, hearing loss, epistaxis Respiratory: denies: shortness of breath, SOB with exertion, SOB at rest, stridor Cardiovascular: denies: chest pain, palpitations, dyspnea on exertion, orthopnea , edema, syncope Gastrointestinal: denies: abdominal pain, nausea, vomiting, diarrhea, constipation, hematemesis, melena, hematochezia Genitourinary: denies: urgency, dysuria Neurological: headache. denies: weakness, numbness, paresthesias, confusion, abnormal gait, vertigo Hematological/Lymphatic: denies: easy bruising ED Past Medical Hx - Past Medical History Hx Hypertension: Yes (2012) Hx CVA: Yes (11-05-2012) Hx Heart Attack/AMI: No Hx Congestive Heart Failure: No Hx Diabetes: No Hx Deep Vein Thrombosis: No Hx Pulmonary Embolism: No Hx Liver Disease: No Hx Renal Disease: No Hx Sickle Cell Disease: No Hx Arthritis: No Hx Seizures: No Hx Kidney Stones: No Hx Asthma: No Hx COPD: No Hx Tuberculosis: No Hx Dementia: No - Surgical History Past Surgical History?: No Hx Coronary Stent: No Hx Pacemaker: No Hx Internal Defibrillator: No - Social History Smoking Status: Former Smoker Substance Use Type: Alcohol - Medications Home Medications: Home Medications Medication Instructions Recorded Confirmed Last Taken Type Aspirin [Aspirin TAB] 325 mg PO QDAY #30 tablet 01/25/14 04/22/17 04/21/17 Rx Carvedilol 12.5 mg PO BID #60 tablet 04/19/17 04/22/17 04/21/17 Rx Ibuprofen [Motrin] 600 mg PO Q8H PRN #30 tablet 04/19/17 04/22/17 04/21/17 Rx Lisinopril/Hydrochlorothiazide 1 each PO DAILY #30 tablet 04/19/17 04/22/1709/01 Rx [Zestoretic 20-12.5 mg] Simvastatin 20 mg PO QHS #30 tablet 04/19/17 04/22/17 04/21/17 Rx Aspirin [Aspirin TAB] 325 mg PO QDAY 04/22/17 04/22/17 04/21/17 History Azithromycin [Zithromax Z-CHICO] 250 mg PO QDAY #6 tablet 04/22/17 Unknown Rx Butalb/Acetaminophen/Caffeine 1 - 2 cap PO Q6HR PRN #12 cap 04/22/17 Unknown Rx [Fioricet 50-300-40 mg CAP] Ibuprofen [Motrin] 800 mg PO Q8HR PRN #15 tablet 04/22/17 Unknown Rx [place]-3S/Dha/Epa/Fish Oil [Fish 1 each PO QDAY 04/22/17 04/22/17 04/21/17 History Oil [place]-3 Softgel] ED Physical Exam - General Limitations: No Limitations General appearance: alert, in no apparent distress, anxious - Head Head exam: Present: atraumatic, normocephalic - Eye Eye exam: Present: normal appearance, PERRL, EOMI, other (fundus poorly visualized but no obvious exudate or hemorrhage) - ENT ENT exam: Present: normal exam, normal orophraynx - Neck Neck exam: Present: normal inspection. Absent: tenderness, meningismus - Respiratory Respiratory exam: Present: normal lung sounds bilaterally. Absent: respiratory distress, wheezes, rales, rhonchi, stridor, chest wall tenderness, accessory muscle use, decreased breath sounds, prolonged expiratory - Cardiovascular Cardiovascular Exam: Present: regular rate, normal rhythm, normal heart sounds - GI/Abdominal GI/Abdominal exam: Present: soft. Absent: distended, tenderness, guarding, rebound, rigid, mass, pulsatile mass - Extremities Exam Extremities exam: Present: normal inspection, normal capillary refill. Absent: pedal edema, joint swelling, calf tenderness - Back Exam Back exam: Present: normal inspection. Absent: full ROM, tenderness, CVA tenderness (R), CVA tenderness (L), muscle spasm, paraspinal tenderness, vertebral tenderness - Neurological Exam Neurological exam: Present: alert, oriented X3, CN II-XII intact, other ( residual deficit fromold lacune for no acute focal neuro deficits appreciated) - Psychiatric Psychiatric exam: Present: normal affect, anxious - Skin Skin exam: Present: warm ED Course Vital Signs 07/03/17 07/03/17 07/03/17 11:16 11:47 12:16 Temperature 98 F Pulse Rate 82 82 Respiratory 16 16 Rate Blood Pressure 259/143 194/120 Blood Pressure [Right] O2 Sat by Pulse 98 98 Oximetry 07/03/17 07/03/17 07/03/17 12:53 13:19 14:14 Temperature Pulse Rate 82 84 80 Respiratory 14 Rate Blood Pressure 201/130 Blood Pressure 137/88 [Right] O2 Sat by Pulse 97 Oximetry ED Medical Decision Making - Lab Data Result diagrams: 07/03/17 12:48 07/03/17 12:48 - EKG Data -: EKG Interpreted by Ga EKG shows normal: sinus rhythm - EKG Data Interpretation: other (ISCHEMIC change) - Radiology Data Radiology results: report reviewed - Medical Decision Making Patient's chronic changes on head CT with old lacune infarct no acute bleed or infarct per radiologist, headache is improved in ED. She does have chronic headaches, troponin laboratory studies are otherwise unremarkable no signs of end organ damage and core admission for further evaluation of hypertensive crisis. The blood pressure has been improved in the ED there is no further nosebleed. 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 ED Disposition Clinical Impression: Poorly controlled blood pressure, Old lacunar stroke without late effect, Chronic headache, Epistaxis Disposition: DC-01 TO HOME OR SELFCARE Is pt being admited?: No Condition: Stable Instructions: Hypertension (ED), Epistaxis (ED), Acute Headache (ED) Additional Instructions: Return immediately or call 911 or alarming symptoms such as worse headache no signs of a stroke chest pain or other problems see her regular doctor for blood pressure check tomorrow with her doctor listed Referrals: PRIMARY CARE, [Primary Care Provider] - 3-5 Days DICRISTINA,KONSTANTIN, MD [Staff Physician] - 3-5 Days Time of Disposition: 15:28
[2017-07-03] MEDS ORDERED: CATAPRES ONE (12:08)
[2017-07-03] MEDS ORDERED: ATIVAN ONE (12:10)
[2017-07-03] MEDS ORDERED: NORMODYNE IV ONE ×2 (12:47→13:09)
[2017-07-03 13:08] LABS: Bacteria,Urine 1+ /HPF (Negative); Bilirubin,Urine NEG (Negative); Blood,Urine MOD (Negative); Color,Urine Yellow (Yellow); Mucus,Urine FEW /HPF; Urobilinogen,Urine < 2.0 mg/dL (<2.0)
[2017-07-03 13:14] LABS: Basophils % (Auto) 0.6 % (0.0-1.8); Eosinophils # (Auto) 0.3 K/mm3 (0.0-0.4); Eosinophils % (Auto) 5.2 % (0.0-4.3); Hematocrit 39.9 % (30.3-42.9); Hemoglobin 12.8 gm/dl (10.1-14.3); Lymphocytes # (Auto) 2.3 K/mm3 (1.2-5.4); Lymphocytes % (Auto) 38.7 % (13.4-35.0); Mean Corpuscular HGB Conc 32 % (30-34); Mean Corpuscular Hemoglobin 29 pg (28-32); Mean Corpuscular Volume 89 fl (79-97); Monocytes # (Auto) 0.5 K/mm3 (0.0-0.8); Monocytes % (Auto) 8.6 % (0.0-7.3); Platelet Count 235 K/mm3 (140-440); Red Blood Count 4.47 M/mm3 (3.65-5.03)
[2017-07-03 13:32] LABS: BUN/Creatinine Ratio 27; Blood Urea Nitrogen 27 mg/dL (7-17); Calcium 9.3 mg/dL (8.4-10.2); Hemolysis Index 38
[2017-07-03] MEDS ORDERED: TYLENOL PO ONE (14:20)
[2017-07-03] MEDS ORDERED: TYLENOL ONE (14:33)
--- NOTE | 2017-07-03 15:02 | Cat Scan Report ---
FINAL REPORT PROCEDURE: CT HEAD/BRAIN WO CON TECHNIQUE: Computerized tomography of the head was performed without contrast material. HISTORY: carr/htn COMPARISON: Prior CT scan of the brain 09/02/2016 FINDINGS: Brain: There is no evidence of intracranial hemorrhage. No parenchymal hemorrhage is seen. No mass lesions or mass effect is identified. No abnormal extra-axial fluid collections or masses are seen. Old lacunar infarcts are visualized in the right thalamus. There appears to be old lacunar infarct in the right and left basal ganglia. These have not changed significantly. No acute intracranial abnormalities are identified. There is some decreased density seen in the periventricular white matter without mass effect. This is fairly symmetric and does not exhibit any mass effect consistent with gliosis probably on the basis of microvascular disease or white matter changes of aging. Ventricles: The ventricles are normal size and are midline. The sulcal pattern and fissures are mildly prominent consistent with mild atrophy. Bones: No evidence of acute fracture. Paranasal sinuses: Mild mucosal thickening visualized in the right left maxillary sinuses. No air-fluid levels are seen. There is mild mucosal thickening in a few of the ethmoid air cells. Visualized portions of the paranasal sinuses otherwise are clear. Mastoid air cells: clear IMPRESSION: There is evidence of gliosis and mild atrophy. Old lacunar infarcts visualized in the basal ganglia and thalamus as described. No acute intracranial abnormalities are seen. Mild paranasal sinus disease as described.
[2017-07-03 15:55] VITALS: BP 124/86
== END 2017-07-03 16:10 | disposition home or self-care (01) ==
LOC: ED 11:03
DX: I10 Essential (primary) hypertension (principal); Z79.82 Long term (current) use of aspirin; Z88.0 Allergy status to penicillin; Z87.891 Personal history of nicotine dependence
CPT/HCPCS: 36415; 70450; 80048; 81001; 84484; 85025; 93005; 93010; 96374

== ENCOUNTER 2017-07-05 09:32 | Emergency (ER) | payer SELFPAY ==
--- NOTE | 2017-07-05 10:29 | Cat Scan Report ---
CT head without contrast: Neuro deficits. Axial images demonstrate diminished periventricular white matter attenuation bilaterally. A focal area of diminished attenuation is noted in the left basal ganglia but unchanged compared to prior exam in April 2017. No other focal findings are identified. The cerebral anatomy is generally unremarkable. No extracerebral collections noted. The visualized bones and paranasal sinuses are unremarkable. Impressions: Senescent changes. No acute findings noted.
[2017-07-05] MEDS ORDERED: CATAPRES PO ONE (10:34)
[2017-07-05 10:47] LABS: Basophils % (Auto) 0.5 % (0.0-1.8); Eosinophils # (Auto) 0.3 K/mm3 (0.0-0.4); Eosinophils % (Auto) 5.4 % (0.0-4.3); Hematocrit 40.4 % (30.3-42.9); Hemoglobin 13.6 gm/dl (10.1-14.3); Lymphocytes # (Auto) 2.1 K/mm3 (1.2-5.4); Lymphocytes % (Auto) 37.9 % (13.4-35.0); Mean Corpuscular HGB Conc 34 % (30-34); Mean Corpuscular Hemoglobin 29 pg (28-32); Mean Corpuscular Volume 87 fl (79-97); Monocytes # (Auto) 0.5 K/mm3 (0.0-0.8); Monocytes % (Auto) 8.5 % (0.0-7.3); Platelet Count 233 K/mm3 (140-440); Red Blood Count 4.65 M/mm3 (3.65-5.03); Red Cell Distribution Width 14.8 % (13.2-15.2)
[2017-07-05 10:57] LABS: INR 0.85 (0.87-1.13)
[2017-07-05 10:58] LABS: Partial Thromboplastin Time 28.7 Sec. (24.2-36.6)
[2017-07-05 11:03] LABS: BUN/Creatinine Ratio 22; Blood Urea Nitrogen 24 mg/dL (7-17); Calcium 9.6 mg/dL (8.4-10.2); Hemolysis Index 8
[2017-07-05 11:25] LABS: Alanine Aminotransferase 12 units/L (7-56); Albumin 4.2 g/dL (3.9-5)
[2017-07-05 11:26] LABS: Bilirubin,Direct < 0.2 mg/dL (0-0.2)
[2017-07-05] MEDS ORDERED: TYLENOL PO ONE (11:29)
[2017-07-05] MEDS ORDERED: APRESOLINE IV ONE (11:29)
--- NOTE | 2017-07-05 11:29 | Emergency Department Report ---
ED Headache HPI - General Chief Complaint: Headache Stated Complaint: HEADACHE/HTN Time Seen by Provider: 07/05/17 11:12 Source: patient - History of Present Illness Initial Comments: Patient is 57-year-old female with history of hypertension. Patient presented to the ER complaining of headache since last night. Patient denied any nausea or vomiting, neck pain or fever. Patient denied any weakness, numbness or tingling sensation. No bowel or bladder incontinence. She denied any chest pain or abdominal pain. Patient initial blood pressure in the ER is 222/132. Patient is taking lisinopril/hydrochlorothiazide 20/12.5 and carvedilol 12.5 mg daily. Patient stated that she is compliant with her medication. Timing/Duration: 24 hours Quality: moderate Head Injury Location: global Recent Head Trauma: no recent headache/trauma Modifying Factors: worse with: cold therapy, exposure to light, immobilization, medication, movement, rest, other Associated Symptoms: denies: denies symptoms, confusion, fatigue, facial pain, fever/chills, flushing, loss of consciousness, nausea/vomiting, nasal congestion , nasal drainage, numbness in legs/feet, rash, seizures, sinus infection, stiff neck, vision changes, weakness, other Allergies/Adverse Reactions: Allergies Penicillins Allergy (Verified 11/06/12 04:01) Unknown Home Medications: Ambulatory Orders Aspirin [Aspirin TAB] 325 mg PO QDAY #30 tablet 01/25/14 Ibuprofen [Motrin] 600 mg PO Q8H PRN #30 tablet 04/19/17 Simvastatin 20 mg PO QHS #30 tablet 04/19/17 Aspirin [Aspirin TAB] 325 mg PO QDAY 04/22/17 Azithromycin [Zithromax Z-CHICO] 250 mg PO QDAY #6 tablet 04/22/17 Butalb/Acetaminophen/Caffeine [Fioricet 50-300-40 mg CAP] 1 - 2 cap PO Q6HR PRN #12 cap 04/22/17 Ibuprofen [Motrin] 800 mg PO Q8HR PRN #15 tablet 04/22/17 [place]-3S/Dha/Epa/Fish Oil [Fish Oil [place]-3 Softgel] 1 each PO QDAY 04/22/17 Carvedilol 12.5 mg PO BID #60 tablet 07/03/17 Lisinopril/Hydrochlorothiazide [Zestoretic 20-12.5 mg] 1 each PO DAILY #30 tablet 07/03/17 ED Review of Systems ROS: Stated complaint: HEADACHE/HTN Other details as noted in HPI Comment: All other systems reviewed and negative Constitutional: denies: chills, fever Respiratory: denies: cough Cardiovascular: denies: chest pain, palpitations, dyspnea on exertion, orthopnea , edema, syncope, paroxysmal nocturnal dyspnea Gastrointestinal: denies: abdominal pain, nausea, vomiting, diarrhea, constipation, hematemesis, melena, hematochezia Musculoskeletal: denies: back pain Neurological: headache. denies: weakness, numbness, paresthesias, confusion, abnormal gait, vertigo ED Past Medical Hx - Past Medical History Previous Medical History?: Yes Hx Hypertension: Yes (2012) Hx CVA: Yes (11-05-2012) Hx Heart Attack/AMI: No Hx Congestive Heart Failure: No Hx Diabetes: No Hx Deep Vein Thrombosis: No Hx Pulmonary Embolism: No Hx Liver Disease: No Hx Renal Disease: No Hx Sickle Cell Disease: No Hx Arthritis: No Hx Seizures: No Hx Kidney Stones: No Hx Asthma: No Hx COPD: No Hx Tuberculosis: No Hx Dementia: No - Surgical History Past Surgical History?: Yes Hx Coronary Stent: No Hx Pacemaker: No Hx Internal Defibrillator: No - Social History Smoking Status: Former Smoker Substance Use Type: Alcohol, Prescribed - Medications Home Medications: Home Medications Medication Instructions Recorded Confirmed Last Taken Type Aspirin [Aspirin TAB] 325 mg PO QDAY #30 tablet 01/25/14 04/22/17 04/21/17 Rx Ibuprofen [Motrin] 600 mg PO Q8H PRN #30 tablet 04/19/17 04/22/17 04/21/17 Rx Simvastatin 20 mg PO QHS #30 tablet 04/19/17 04/22/17 04/21/17 Rx Aspirin [Aspirin TAB] 325 mg PO QDAY 04/22/17 04/22/17 04/21/17 History Azithromycin [Zithromax Z-CHICO] 250 mg PO QDAY #6 tablet 04/22/17 Unknown Rx Butalb/Acetaminophen/Caffeine 1 - 2 cap PO Q6HR PRN #12 cap 04/22/17 Unknown Rx [Fioricet 50-300-40 mg CAP] Ibuprofen [Motrin] 800 mg PO Q8HR PRN #15 tablet 04/22/17 Unknown Rx [place]-3S/Dha/Epa/Fish Oil [Fish 1 each PO QDAY 04/22/17 04/22/17 04/21/17 History Oil [place]-3 Softgel] Carvedilol 12.5 mg PO BID #60 tablet 07/03/17 Unknown Rx Lisinopril/Hydrochlorothiazide 1 each PO DAILY #30 tablet 07/03/17 Unknown Rx [Zestoretic 20-12.5 mg] ED Physical Exam - General Limitations: No Limitations General appearance: alert, in no apparent distress - Head Head exam: Present: atraumatic, normocephalic, normal inspection - Eye Eye exam: Present: normal appearance, PERRL - ENT ENT exam: Present: normal exam, normal orophraynx, mucous membranes moist - Neck Neck exam: Present: normal inspection, full ROM. Absent: tenderness, meningismus, lymphadenopathy, thyromegaly - Respiratory Respiratory exam: Present: normal lung sounds bilaterally. Absent: respiratory distress, wheezes, rales, rhonchi, stridor, chest wall tenderness, accessory muscle use, decreased breath sounds, prolonged expiratory - Cardiovascular Cardiovascular Exam: Present: regular rate, normal rhythm, normal heart sounds - GI/Abdominal GI/Abdominal exam: Present: soft, normal bowel sounds. Absent: distended, tenderness, guarding, rebound, rigid, organomegaly, mass, bruit, pulsatile mass , hernia - Extremities Exam Extremities exam: Present: normal inspection, full ROM, normal capillary refill - Back Exam Back exam: Present: normal inspection, full ROM. Absent: tenderness, CVA tenderness (R), CVA tenderness (L), muscle spasm, paraspinal tenderness, vertebral tenderness, rash noted - Neurological Exam Neurological exam: Present: alert, oriented X3, CN II-XII intact, normal gait, reflexes normal. Absent: abnormal gait, motor sensory deficit - Psychiatric Psychiatric exam: Present: normal mood - Skin Skin exam: Present: warm, intact, normal color ED Course Vital Signs 07/05/17 07/05/17 09:51 10:50 Temperature 98.1 F Pulse Rate 81 81 Respiratory 16 Rate Blood Pressure 226/131 226/131 O2 Sat by Pulse 100 Oximetry ED Medical Decision Making - Lab Data Result diagrams: 07/05/17 10:12 07/05/17 10:12 - Radiology Data Radiology results: report reviewed Referring Physician: ED DOC Patient Name: MADELAINE EDGAR Date of : 1960 Sex: Female Report Date: 2017-07-05 Report Status: Finalized Findings [facility] [address] [id number] Cat Scan Report Signed Patient: MADELAINE EDGAR MR#: [id number] : 1960 Acct:[id number] Age/Sex: 57 / F ADM Date: 07/05/17 Loc: ED Attending Dr: Ordering Physician: REMY THAO MD Date of Service: 07/05/17 Procedure(s): CT head/brain wo con Accession Number(s): [id number] cc: REMY THAO MD CT head without contrast: Neuro deficits. Axial images demonstrate diminished periventricular white matter attenuation bilaterally. A focal area of diminished attenuation is noted in the left basal ganglia but unchanged compared to prior exam in April 2017. No other focal findings are identified. The cerebral anatomy is generally unremarkable. No extracerebral collections noted. The visualized bones and paranasal sinuses are unremarkable. Impressions: Senescent changes. No acute findings noted. Transcribed By: [facility] Dictated By: ELEUTERIO HEBERT MD Electronically Authenticated By: ELEUTERIO HEBERT MD Signed Date/Time: 07/05/17 1008 DD/ 1005 TD/TT: 07/05/17 1008 - Medical Decision Making Patient stated that she is feeling much better, headache completely resolved. Patient blood pressure now is 134/89.. Patient is still denying any weakness, numbness or tingling sensation. No bowel or bladder incontinence. I will increase patient lisinopril to 20 mg and hydrochlorothiazide to 25 mg and I will add hydralazine to her regimen. I advised patient to follow up with her primary care physician in the next 2-3 days and to return to the ER if her symptoms are not improving. Critical care attestation.: If time is entered above; I have spent that time in minutes in the direct care of this critically ill patient, excluding procedure time. ED Disposition Clinical Impression: Headache, Malignant hypertension Disposition: - TO HOME OR SELFCARE Is pt being admited?: No Condition: Stable Instructions: Hypertension (ED) Referrals: PRIMARY CARE, [Primary Care Provider] - 3-5 Days
[2017-07-05 12:07] LABS: Bilirubin,Urine NEG (Negative); Blood,Urine MOD (Negative); Color,Urine Yellow (Yellow); Mucus,Urine FEW /HPF; Protein,Urine <15 mg/dL mg/dL (Negative); Urobilinogen,Urine < 2.0 mg/dL (<2.0)
[2017-07-05 14:22] VITALS: BP 158/98
== END 2017-07-05 14:10 | disposition home or self-care (01) ==
LOC: ED 09:32
DX: I10 Essential (primary) hypertension (principal); Z86.73 Personal history of transient ischemic attack (TIA), and cerebral infarction without residual deficits; Z79.82 Long term (current) use of aspirin; Z88.0 Allergy status to penicillin
CPT/HCPCS: 36415; 70450; 80048; 80074; 81001; 83880; 84484; 85025; 85610; 85670; 85730; 93005; 93010; 99285; J0360

== ENCOUNTER 2017-07-20 17:23 | Inpatient (IN) | payer OTHER ==
--- NOTE | 2017-07-20 18:10 | Emergency Department Report ---
HPI - General Chief Complaint: Headache Time Seen by Provider: 07/20/17 17:56 - HPI HPI: Room 1 The patient is a 57-year-old female presenting with a chief complaint of syncope. The patient states she was walking down the stairs at 16:00 when she then awakened on the floor. Patient denies any preceding symptoms. Patient denies bowel or bladder incontinence. The patient now complains of a headache and pain of the right knee, and low back. The patient denied nausea/vomiting, palpitations, chest pain, shortness of breath, dizziness or abdominal pain. Patient denies previous episodes of same. There was no seizure activity witnessed all over the patient only called out family after she came to Location: Head, right knee Duration: [See above] Quality: Pain Severity:11/24 Modifying factors: [see above] Context: [see above] Mode of transportation: [not driving] ED Past Medical Hx - Past Medical History Previous Medical History?: Yes Hx Hypertension: Yes (2012) Hx CVA: Yes (11-05-2012) - Surgical History Past Surgical History?: Yes - Family History Family history: no significant - Social History Smoking Status: Former Smoker Substance Use Type: None (denies illicit drug use), Alcohol (moderate) - Medications Home Medications: Home Medications Medication Instructions Recorded Confirmed Last Taken Type Aspirin [Aspirin TAB] 325 mg PO QDAY 04/22/17 04/22/17 04/21/17 History [place]-3S/Dha/Epa/Fish Oil [Fish 1 each PO QDAY 04/22/17 04/22/17 04/21/17 History Oil [place]-3 Softgel] Lisinopril/Hydrochlorothiazide 1 tab PO QDAY #30 tab 07/05/17 Unknown Rx [Zestoretic 20-25 mg] hydrALAZINE [Apresoline TAB] 25 mg PO Q8HR #30 tab 07/05/17 Unknown Rx ED Review of Systems ROS: Stated complaint: HYPERTENSION Other details as noted in HPI Constitutional: no symptoms reported Eyes: denies: eye pain ENT: denies: throat pain Respiratory: denies: shortness of breath Cardiovascular: denies: chest pain, palpitations Gastrointestinal: denies: abdominal pain, nausea, vomiting Genitourinary: denies: dysuria Musculoskeletal: back pain Neurological: headache Physical Exam - Physical Exam Vital Signs: Vital Signs 07/20/17 17:50 Blood Pressure 183/106 Physical Exam: GENERAL: The patient is well-developed well-nourished female lying on stretcher appeared to be in mild discomfort. [] HEENT: Normocephalic. Atraumatic. Extraocular motions are intact. Patient has moist mucous membranes. NECK: Supple. No meningitic signs are noted. Trachea midline CHEST/LUNGS: Clear to auscultation. There is no respiratory distress noted. HEART/CARDIOVASCULAR: Regular. There is no tachycardia. There is no gallop rub or murmur. ABDOMEN: Abdomen is soft, nontender. Patient has normal bowel sounds. There is no abdominal distention. SKIN: Slightly abraded skin overlying the right knee. There is no edema. There is no diaphoresis. NEURO: The patient is awake, alert, and oriented. The patient is cooperative. The patient has no focal neurologic deficits. The patient has normal speech. Cranial nerves II through XII grossly intact, no drift MUSCULOSKELETAL: There is tenderness to palpation of the lateral aspect of the right knee. Patient has pain to the lateral aspect of the right knee with varus and valgus stress. ED Course Vital Signs 07/20/17 17:50 Blood Pressure 183/106 ED Medical Decision Making - Lab Data Result diagrams: 07/20/17 18:23 07/20/17 18:23 Laboratory Tests 07/20/17 07/20/17 07/20/17 18:23 18:23 18:23 WBC 8.0 RBC 4.33 Hgb 12.3 Hct 38.6 MCV 89 MCH 29 MCHC 32 RDW 14.6 Plt Count 260 Lymph % (Auto) 34.3 Potter % (Auto) 8.7 H Eos % (Auto) 3.3 Baso % (Auto) 0.4 Lymph # 2.7 Potter # 0.7 Eos # 0.3 Baso # 0.0 Seg Neutrophils % 53.3 Seg Neutrophils # 4.2 PT 11.8 L INR 0.83 L APTT 28.7 Sodium 139 Potassium 3.3 L Chloride 98.2 Carbon Dioxide 25 Anion Gap 19 BUN 23 H Creatinine 1.2 Estimated GFR 56 BUN/Creatinine Ratio 19 Glucose 84 Calcium 9.6 Total Bilirubin 0.30 AST 20 ALT 13 Alkaline Phosphatase 69 Total Creatine Kinase 322 H CK-MB (CK-2) 1.9 CK-MB (CK-2) Rel Index 0.5 Troponin T < 0.010 Total Protein 7.5 Albumin 4.2 Albumin/Globulin Ratio 1.3 TSH Free T4 Urine Bilirubin Urine RBC (Auto) U Epithel Cells (Auto) 07/20/17 07/20/17 18:23 19:40 WBC RBC Hgb Hct MCV MCH MCHC RDW Plt Count Lymph % (Auto) Potter % (Auto) Eos % (Auto) Baso % (Auto) Lymph # Potter # Eos # Baso # Seg Neutrophils % Seg Neutrophils # PT INR APTT Sodium Potassium Chloride Carbon Dioxide Anion Gap BUN Creatinine Estimated GFR BUN/Creatinine Ratio Glucose Calcium Total Bilirubin AST ALT Alkaline Phosphatase Total Creatine Kinase CK-MB (CK-2) CK-MB (CK-2) Rel Index Troponin T Total Protein Albumin Albumin/Globulin Ratio TSH 1.770 Free T4 1.22 Urine Bilirubin Neg Urine RBC (Auto) 7.0 U Epithel Cells (Auto) 15.0 H - EKG Data -: EKG Interpreted by Me EKG shows normal: sinus rhythm Rate: normal - EKG Data When compared to previous EKG there are: previous EKG unavailable Interpretation: other (no ischemic changes seen) - Radiology Data Radiology results: pending (Final report for CT Head, CT C spine ), image reviewed (right knee x-ray, lumbar spine x-ray, CT head, CT cervical spine) interpreted by me: Right knee x-ray-no acute fractures Lumbar spine x-ray-no acute fractures CT head (read by myself)-no gross acute hemorrhage CT cervical spine (read by myself)-no gross acute fracture seen - Differential Diagnosis syncope, dysrhythmia, ACS, electrolyte abnormality Critical care attestation.: If time is entered above; I have spent that time in minutes in the direct care of this critically ill patient, excluding procedure time. ED Disposition Clinical Impression: Syncope, Contusion of right knee Disposition: OP ADMIT IP TO THIS HOSP Is pt being admited?: Yes Does the pt Need Aspirin: No Condition: Fair Instructions: Syncope (ED) Time of Disposition: 20:06 (Hospitalist notified (Dr Montgomery))
[2017-07-20] MEDS ORDERED: NORCO 5/325 PO ONE (18:17)
[2017-07-20 18:37] LABS: Basophils % (Auto) 0.4 % (0.0-1.8); Eosinophils # (Auto) 0.3 K/mm3 (0.0-0.4); Eosinophils % (Auto) 3.3 % (0.0-4.3); Hematocrit 38.6 % (30.3-42.9); Hemoglobin 12.3 gm/dl (10.1-14.3); Lymphocytes # (Auto) 2.7 K/mm3 (1.2-5.4); Lymphocytes % (Auto) 34.3 % (13.4-35.0); Mean Corpuscular HGB Conc 32 % (30-34); Mean Corpuscular Hemoglobin 29 pg (28-32); Mean Corpuscular Volume 89 fl (79-97); Monocytes # (Auto) 0.7 K/mm3 (0.0-0.8); Monocytes % (Auto) 8.7 % (0.0-7.3); Platelet Count 260 K/mm3 (140-440); Red Blood Count 4.33 M/mm3 (3.65-5.03); Red Cell Distribution Width 14.6 % (13.2-15.2)
[2017-07-20 18:46] LABS: INR 0.83 (0.87-1.13)
[2017-07-20 18:47] LABS: Partial Thromboplastin Time 28.7 Sec. (24.2-36.6)
[2017-07-20 18:54] LABS: Creatine Kinase MB 1.9 ng/mL (0.0-4.0)
[2017-07-20 18:55] LABS: Alanine Aminotransferase 13 units/L (7-56); Albumin 4.2 g/dL (3.9-5); BUN/Creatinine Ratio 19; Blood Urea Nitrogen 23 mg/dL (7-17); Calcium 9.6 mg/dL (8.4-10.2); Hemolysis Index 6
[2017-07-20 19:05] LABS: Free T4 (Free Thyroxine) 1.22 ng/dL (0.76-1.46)
[2017-07-20 20:01] LABS: Bacteria,Urine 1+ /HPF (Negative); Bilirubin,Urine NEG (Negative); Blood,Urine MOD (Negative); Color,Urine Yellow (Yellow); Mucus,Urine FEW /HPF; Protein,Urine <15 mg/dL mg/dL (Negative); Urobilinogen,Urine < 2.0 mg/dL (<2.0)
[2017-07-20] MEDS ORDERED: NORMODYNE IV ONE (20:11)
--- NOTE | 2017-07-20 21:00 | Cat Scan Report ---
FINAL REPORT EXAM: CT Head CLINICAL INDICATIONS: SYNCOPE FINDINGS: Unenhanced CT of the brain was performed and demonstrates no acute intracranial hemorrhage, extra-axial fluid collection, midline shift or mass effect. The ventricles and basal cisterns are not effaced. There are small bilateral basal ganglia lacunar infarcts. There are mild chronic appearing small vessel ischemic white matter changes in the subcortical and periventricular white matter. The mastoid air cells and middle ears appear clear. There is no evidence of acute sinusitis. IMPRESSION: NO ACUTE INTRACRANIAL HEMORRHAGE
--- NOTE | 2017-07-20 21:00 | XRay Report ---
FINAL REPORT EXAM: XR RT KNEE CLINICAL INDICATIONS: SYNCOPE FINDINGS: AP, lateral and oblique views of the right knee were acquired and demonstrate no fracture or malalignment of the right knee. There is mild patellofemoral compartment osteoarthritis. IMPRESSION: NO FRACTURE IS SEEN IN THE RIGHT KNEE
--- NOTE | 2017-07-20 21:00 | Cat Scan Report ---
FINAL REPORT PROCEDURE: CT CERVICAL SPINE WO CON TECHNIQUE: Computerized tomography of the cervical spine was performed from the skull base to T1 without contrast material. HISTORY: syncope, fall down stairs, headache COMPARISON: No prior studies are available for comparison. FINDINGS: The vertebral body heights and alignment are maintained. There are degenerative disc changes at C5-6 and C6-7. No acute fracture or subluxation is seen. IMPRESSION: No acute fracture or subluxation is identified.
--- NOTE | 2017-07-20 21:03 | XRay Report ---
FINAL REPORT EXAM: XR LUMBOSACRAL CLINICAL INDICATIONS: BACK PAIN FINDINGS: AP and lateral views of the lumbar spine were acquired and demonstrate no fracture or malalignment of the lumbar spine. The intervertebral disc space heights appear preserved. IMPRESSION: NO FRACTURE IS SEEN IN THE LUMBAR SPINE
[2017-07-20] MEDS ORDERED: TYLENOL PO PRN (22:04)
[2017-07-20] MEDS ORDERED: ZOFRAN IV PRN (22:05)
[2017-07-20] MEDS ORDERED: NACL 0.9% 1000 ML 1,000 ML IV ONE (22:06)
[2017-07-21] MEDS ORDERED: APRESOLINE IV ONE (01:40)
[2017-07-21 01:58] LABS: Creatine Kinase MB 1.8 ng/mL (0.0-4.0)
--- NOTE | 2017-07-21 03:59 | History and Physical Report ---
CHIEF COMPLAINT: Syncopal attack. Other complaints includes headache. HISTORY OF PRESENT ILLNESS: The patient is a 57-year-old female who says she passed out while she was walking down the stairs, the patient stated that she fell to the ground and then noticed that people were around her and trying to pull her up to find out what is going on with her. She denied history of chest pain, shortness of breath, fever, nausea, vomiting or chills prior to passing out. The patient did not remember what happened when she passed out, but after she woke up from her syncopal attack, she was complaining of pain in the right knee and headache. There was no report of any seizure activity when the patient had the syncopal episode according to the witnesses. PAST MEDICAL HISTORY: Pertinent for hypertension and cerebrovascular accident. PAST SURGICAL HISTORY: Not well defined. FAMILY HISTORY: Noncontributory. SOCIAL HISTORY: The patient is a former cigarette smoker, does not smoke recently and drinks alcohol occasionally, does not use illicit drugs. MEDICATIONS: The patient is on aspirin 325 mg by mouth daily, omega-3 fatty acid one by mouth daily, Zestoretic one tablet by mouth daily, hydralazine (Apresoline) 25 mg by mouth every 8 hours. ALLERGIES: THE PATIENT IS ALLERGIC TO PENICILLIN. REVIEW OF SYSTEMS: CONSTITUTIONAL: There is no fever, no chills, no diaphoresis. HEENT: There is headache, but no sore throat. CARDIOVASCULAR: There is no chest pain or orthopnea. RESPIRATORY: There is no shortness of breath or cough. GASTROINTESTINAL: There is no nausea, no vomiting, no abdominal pain, diarrhea or constipation. NEUROLOGICAL: Syncopal attack noted. Headache noted. Change in mental status noted during the syncopal attack. MUSCULOSKELETAL: There is pain in the right knee area, but no joint swelling. DERMATOLOGICAL: There is no skin rash or itching. GENITOURINARY: There is no dysuria, hematuria or flank pain. Rest of system review is normal. PHYSICAL EXAMINATION: GENERAL: At the time of exam, the patient was found to be alert, oriented x 3 and not in acute distress. VITAL SIGNS: Shows temperature of 97.4 degrees Fahrenheit, pulse of 74, respirations 24, blood pressure 182/104, O2 sat of 99% on room air. HEENT: Show pupils to be equal, round, reactive to light and accommodating. Extraocular muscles are intact. NECK: Supple with no JVD or carotid bruit. CARDIOVASCULAR: Show normal first and second heart sounds with no gallops or murmurs. RESPIRATORY SYSTEM: Show good air entry on both sides of the lungs with no abnormal breath sounds. GASTROINTESTINAL: Show abdomen to be full, soft, nontender with no organomegaly or rigidity. NEUROLOGIC: Shows no focal deficit. MUSCULOSKELETAL: Showed tenderness in the right knee area with no joint swelling. DERMATOLOGICAL: Show bruises in the right knee area anteriorly. GENITOURINARY: Show no costovertebral angle tenderness. PERTINENT LABORATORY AND IMAGING STUDIES: The patient has urinalysis done that was unremarkable. The patient's chemistry show low potassium of 3.3 with slightly elevated total CPK of 322. The patient's coagulation studies were unremarkable. CBC was unremarkable. IMAGING STUDIES: The patient has CT of the head without contrast done that shows no acute intracranial process. Also, the patient had a CT of the cervical spine without contrast done that shows no acute fracture or subluxation. The patient had x-ray of the lumbar spine done that shows no fracture and also the patient has x-ray of the right knee done that shows no fracture. DIAGNOSES: 1. Syncope. 2. Hypokalemia. 3. Hypertension. PLAN: The patient will be admitted to telemetry and will have bilateral carotid Doppler done in the morning. The patient will have complete 2D echo done in the morning. The patient will be on IV normal saline running at 75 mL an hour. The patient will be on home medication as shown in the reconciliation section that also include blood pressure medication, hydralazine 25 mg by mouth every 8 hours. The patient will have cardiac enzymes involving troponin, total CK, and CK-MB checked q.6 hours x 2 more levels. DVT prophylaxis will be through sequential compressive device. The patient will have potassium chloride 40 mEq by mouth and we will have basic metabolic panel checked this morning, 07/21/2017, to monitor correction of potassium. JOB# [id number] OCN/NTS
[2017-07-21] MEDS: APRESOLINE PO SCH ×3 (05:20→22:03)
[2017-07-21 07:34] LABS: BUN/Creatinine Ratio 20; Blood Urea Nitrogen 20 mg/dL (7-17); Calcium 9.1 mg/dL (8.4-10.2); Hemolysis Index 4
[2017-07-21 07:35] LABS: Creatine Kinase MB 1.5 ng/mL (0.0-4.0)
[2017-07-21] MEDS: ZESTRIL PO SCH (09:16)
[2017-07-21] MEDS: ASPIRIN PO SCH (09:16)
[2017-07-21] MEDS: FISH OIL PO SCH (09:16)
[2017-07-21] MEDS: K-DUR PO SCH (09:17)
[2017-07-21] MEDS ORDERED: HCTZ PO SCH (10:00)
[2017-07-21] MEDS ORDERED: K-DUR PO ONE (10:00)
[2017-07-21] MEDS ORDERED: NORCO 5/325 PO PRN (12:36)
--- NOTE | 2017-07-21 13:07 | Progress Note ---
Assessment and Plan Assessment and plan: Prior Visits: 11/06/12: from [facility] with right sided weakness and aphasia, s/p tPA. Brain MRI showed small acute infarct involving the left lateral thalamus, severe degree of periventricular microangiopathy. 11/07/12 2D ECHO ef 65-70%, mild concentric LVH, mild MR, technically difficult study 01/22/14: ER visit for headache, off bp meds, admitted to icu on Cardene drip 08/31/16: ER visit for high bp, off bp and cholesterol meds x 1 month, d/c from ED 04/19/17: ER visit for left foot pain, d/c from ED 05/02/17: ER visit for chest pains, d/c from ED due to low MELLO score 07/03/17: ER visit for high bp off bp meds and nosebleeds, d/c from ED 07/05/17: ER visit for headached, d/c Home from ED Current visit: 07/20/17: Patient is a 57 yo woman with a history of hypertension, dyslipidemia, and CVA with right sided slight weakness s/p tpa (see above) 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 The ventricles and basal cisterns are not effaced. There are small bilateral basal ganglia lacunar infarcts. There are mild chronic appearing small vessel ischemic white matter changes in the subcortical and periventricular white matter. The mastoid air cells and middle ears appear clear. There is no evidence of acute sinusitis. IMPRESSION: NO ACUTE INTRACRANIAL HEMORRHAGE -Syncope, possibly neurogenic: get MRI, Echo pending -Accelerated hypertension with urgency: give iv hydralazine with monitoring -Headaches: pain control -Hypokalemia: replace and recheck in am -Abnormal CT head with BG infarcts, ?timing: get mri brain -Dyslipidemia: treat with statin -DVT prophylaxis: sq heparin History Interval history: Patient was seen and examined. Follow-up on current diagnosis LOC. Overnight uneventful. Patient denies any chest pain, shortness breath, nausea/vomiting. + headaches. Imaging, nursing note, chart, labs and old chart reviewed. Discussed with patient. +knee pains Hospitalist Physical - Physical exam Narrative exam: GEN: WDWN, NAD, Awake, Alert, Orientated x 3 HEENT: NCAT, EOMI, PERRL, OP Clear NECK: supple, no adenopathy, no thyromegaly, no JVD CVS/HEART: RRR, normal S1S2, pulses present bilaterally CHEST/LUNGS: CTA B, Symmetrical chest expansion, good air entry bilaterally GI/Abdomen: soft, NTND, good bowel sounds, no guarding or rebound /Bladder: no suprapubic tenderness, no CVA or paraspinal tenderness EXT/Skin: no c/c/e, no obvious rash MSK: FROM x 4 Neuro: CN 2-12 grossly intact, no new focal deficits Psych: calm - Constitutional Vitals: Temp Pulse Resp BP Pulse Ox 97.8 F 80 20 189/131 99 07/21/17 12:23 07/21/17 12:23 07/21/17 12:23 07/21/17 12:23 07/21/17 12:23 Results - Labs CBC & Chem 7: 07/20/17 18:23 07/21/17 06:02 Labs: Laboratory Last Values WBC 8.0 K/mm3 (4.5-11.0) 07/20/17 18: RBC 4.33 M/mm3 (3.65-5.03) 07/20/17 18:23 Hgb 12.3 gm/dl (10.1-14.3) 07/20/17 18:23 Hct 38.6 % (30.3-42.9) 07/20/17 18: MCV 89 fl (79-97) 07/20/17 18:23 MCH 29 pg (28-32) 07/20/17 18: MCHC 32 % (30-34) 07/20/17 18: RDW 14.6 % (13.2-15.2) 07/20/17 18: Plt Count 260 K/mm3 (140-440) 07/20/17 18: Lymph % (Auto) 34.3 % (13.4-35.0) 07/20/17 18: Merrick % (Auto) 8.7 % (0.0-7.3) H 07/20/17 18:23 Eos % (Auto) 3.3 % (0.0-4.3) 07/20/17 18: Baso % (Auto) 0.4 % (0.0-1.8) 07/20/17 18: Lymph # 2.7 K/mm3 (1.2-5.4) 07/20/17 18: Merrick # 0.7 K/mm3 (0.0-0.8) 07/20/17 18: Eos # 0.3 K/mm3 (0.0-0.4) 07/20/17 18: Baso # 0.0 K/mm3 (0.0-0.1) 07/20/17 18: Seg Neutrophils % 53.3 % (40.0-70.0) 07/20/17 18: Seg Neutrophils # 4.2 K/mm3 (1.8-7.7) 07/20/17 18: PT 11.8 Sec. (12.2-14.9) L 07/20/17 18: INR 0.83 (0.87-1.13) L 07/20/17 18:23 APTT 28.7 Sec. (24.2-36.6) 07/20/17 18:23 Sodium 141 mmol/L (137-145) 07/21/17 06:02 Potassium 3.1 mmol/L (3.6-5.0) L 07/21/17 06:02 Chloride 101.1 mmol/L (98-107) 07/21/17 06:02 Carbon Dioxide 25 mmol/L (22-30) 07/21/17 06:02 Anion Gap 18 mmol/L 07/21/17 06:02 BUN 20 mg/dL (7-17) H 07/21/17 06:02 Creatinine 1.0 mg/dL (0.7-1.2) 07/21/17 06:02 Estimated GFR > 60 ml/min 07/21/17 06:02 BUN/Creatinine Ratio 20 % 07/21/17 06:02 Glucose 92 mg/dL (65-100) 07/21/17 06:02 Calcium 9.1 mg/dL (8.4-10.2) 07/21/17 06:02 Total Bilirubin 0.30 mg/dL (0.1-1.2) 07/20/17 18:23 AST 20 units/L (5-40) 07/20/17 18:23 ALT 13 units/L (7-56) 07/20/17 18:23 Alkaline Phosphatase 69 units/L (35-129) 07/20/17 18:23 Total Creatine Kinase 220 units/L (30-135) H 07/21/17 06:02 CK-MB (CK-2) 1.5 ng/mL (0.0-4.0) 07/21/17 06:02 CK-MB (CK-2) Rel Index 0.6 (0-4) 07/21/17 06:02 Troponin T < 0.010 ng/mL (0.00-0.029) 07/21/17 06:02 Total Protein 7.5 g/dL (6.3-8.2) 07/20/17 18:23 Albumin 4.2 g/dL (3.9-5) 07/20/17 18: Albumin/Globulin Ratio 1.3 % 07/20/17 18:23 TSH 1.770 mlU/mL (0.270-4.200) 07/20/17 18: Free T4 1.22 ng/dL (0.76-1.46) 07/20/17 18:23 Urine Color Yellow (Yellow) 07/20/17 19:40 Urine Turbidity Clear (Clear) 07/20/17 19:40 Urine pH 5.0 (5.0-7.0) 07/20/17 19:40 Ur Specific Bertrand 1.013 (1.003-1.030) 07/20/17 19:40 Urine Protein <15 mg/dl mg/dL (Negative) 07/20/17 19:40 Urine Glucose (UA) Neg mg/dL (Negative) 07/20/17 19:40 Urine Ketones Neg mg/dL (Negative) 07/20/17 19:40 Urine Blood Mod (Negative) 07/20/17 19:40 Urine Nitrite Neg (Negative) 07/20/17 19:40 Urine Bilirubin Neg (Negative) 07/20/17 19:40 Urine Urobilinogen < 2.0 mg/dL (<2.0) 07/20/17 19:40 Ur Leukocyte Esterase Neg (Negative) 07/20/17 19:40 Urine WBC (Auto) 1.0 /HPF (0.0-6.0) 07/20/17 19:40 Urine RBC (Auto) 7.0 /HPF (0.0-6.0) 07/20/17 19:40 U Epithel Cells (Auto) 15.0 /HPF (0-13.0) H 07/20/17 19:40 Urine Bacteria (Auto) 1+ /HPF (Negative) 07/20/17 19:40 Urine Mucus Few /HPF 07/20/17 19:40
[2017-07-21] MEDS ORDERED: SODIUM CHLORIDE FLUSH SYRINGE 10 ML IV PRN (13:09)
[2017-07-21] MEDS: APRESOLINE IV PRN ×2 (13:18→16:47)
[2017-07-21] MEDS: NORCO 10/325 PO PRN (13:48)
--- NOTE | 2017-07-21 16:13 | Magnetic Resonance Report ---
FINAL REPORT EXAM: MR BRAIN WO CON HISTORY: CVA syncope BA: 07/21/2017 TECHNIQUE: Multiplanar multisequence brain MR imaging without IV contrast. PRIORS: Head CT 07/20/2017 FINDINGS: Multifocal slight mucosal thickening in the mastoid, ethmoid, and frontal sinuses. The included air filled sinuses contain no acute fluid level. Foci of hyperintensity in the cerebral white matter, while nonspecific, are present and usually attributed to chronic ischemic gliosis. It can occur secondary to the normal aging process, hypertension, vasculitis, migraine related changes, or arterial sclerotic vascular disease. The differential includes any cause of gliosis as well as demyelination in the appropriate clinical setting. There is ventricular and sulcal prominence compatible with global symmetric cerebrocortical atrophy. The brain is without mass, mass effect, hemorrhage, or acute infarct. There are no areas of brain restricted diffusion to suggest an acute ischemic infarct. There is no midline shift or brain edema. IMPRESSION: No acute CVA or brain mass
--- NOTE | 2017-07-21 16:26 | Magnetic Resonance Report ---
FINAL REPORT EXAM: MR MRA HEAD WO CON HISTORY: CVA syncope BA: 07/21/2017 TECHNIQUE: Multiplanar multisequence brain arterial vascular MRA imaging 3-D image postprocessing. PRIORS: Brain MRI 07/21/[address] 07/20/2017 FINDINGS: Internal carotid arteries: Normal. Anterior cerebral arteries: Normal left. Aneurysm arises from the right LARON A1 segment just proximal to the anterior communicating artery. Approximate aneurysm with is 3 mm. Aneurysm length cannot be directly measured from these images but is approximately 10 mm. Middle cerebral arteries: Normal. Vertebral arteries: Normal. Basilar artery: Normal. Posterior cerebral arteries: Normal. 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 Vascular malformations: None. 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
[2017-07-21] MEDS: PEPCID PO SCH (22:03)
[2017-07-22] MEDS: NORCO 10/325 PO PRN (04:39)
[2017-07-22] MEDS: APRESOLINE PO SCH ×2 (05:23→14:00)
[2017-07-22 07:20] LABS: Chol/HDL Ratio 5.4 %
--- NOTE | 2017-07-22 08:25 | Discharge Summary ---
Providers - Providers Date of Admission: 07/20/17 20:06 Date of discharge: 07/22/17 Attending physician: FOSTER DEAL 07/21/17 08:46 Consult to Dietitian/Nutrition [CONS] Routine Physician Instructions: Reason For Exam: Reason for Consult: Malnutrition 07/21/17 13:09 Consult to Case Management [CONS] Routine Services Needed at Discharge: Other Notified:: cm Occupational Therapy Evaluate and Treat [CONS] Routine Comment: Reason For Exam: Neuro deficits Physical Therapy Evaluation and Treat [CONS] Routine Comment: Reason For Exam: Neuro deficits 07/21/17 16:38 Consult to Physician [CONS] Routine Comment: Consulting Provider: DEANNE RICH Physician Instructions: Reason For Exam: Right LARON a1 segment aneurysm 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 Brain MRI showed small acute infarct involving the left lateral thalamus, severe degree of periventricular microangiopathy. 11/07/12 2D ECHO ef 65-70%, mild concentric LVH, mild MR, technically difficult study 01/22/14: ER visit for headache, off bp meds, admitted to icu on Cardene drip 08/31/16: ER visit for high bp, off bp and cholesterol meds x 1 month, d/c from ED 04/19/17: ER visit for left foot pain, d/c from ED 05/02/17: ER visit for chest pains, d/c from ED due to low MELLO score 07/03/17: ER visit for high bp off bp meds and nosebleeds, d/c from ED 07/05/17: ER visit for headached, d/c Home from ED Current visit: 07/20/17: Patient is a 57 yo woman with a history of hypertension, dyslipidemia, and CVA with right sided slight weakness s/p tpa (see above) 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 The ventricles and basal cisterns are not effaced. There are small bilateral basal ganglia lacunar infarcts. There are mild chronic appearing small vessel ischemic white matter changes in the subcortical and periventricular white matter. The mastoid air cells and middle ears appear clear. There is no evidence of acute sinusitis. IMPRESSION: NO ACUTE INTRACRANIAL HEMORRHAGE -Syncope, most likely autonomic dysfunction -Right LARON aneurysm -Accelerated hypertension with urgency: given doses of iv hydralazine -Headaches: pain control -Hypokalemia: replace and recheck in am -Abnormal CT head with BG infarcts, disproven by mri -Dyslipidemia: treat with statin -DVT prophylaxis: sq heparin MRI brain wo contrast FINDINGS: Multifocal slight mucosal thickening in the mastoid, ethmoid, and frontal sinuses. The included air filled sinuses contain no acute fluid level. Foci of hyperintensity in the cerebral white matter, while nonspecific, are present and usually attributed to chronic ischemic gliosis. It can occur secondary to the normal aging process, hypertension, vasculitis, migraine related changes, or arterial sclerotic vascular disease. The differential includes any cause of gliosis as well as demyelination in the appropriate clinical setting. There is ventricular and sulcal prominence compatible with global symmetric cerebrocortical atrophy. The brain is without mass, mass effect, hemorrhage, or acute infarct. There are no areas of brain restricted diffusion to suggest an acute ischemic infarct. There is no midline shift or brain edema. IMPRESSION: No acute CVA or brain mass MRA/MRV wo contrast FINDINGS: Internal carotid arteries: Normal. Anterior cerebral arteries: Normal left. Aneurysm arises from the right LARON A1 segment just proximal to the anterior communicating artery. Approximate aneurysm with is 3 mm. Aneurysm length cannot be directly measured from these images but is approximately 10 mm. Middle cerebral arteries: Normal. Vertebral arteries: Normal. Basilar artery: Normal. Posterior cerebral arteries: Normal. Developmental variation with hybrid persistence of the left PRIOR AUTHORIZATION TECHNICIAN Occlusion : None. Vascular malformations: None. IMPRESSION: Right LARON A1 segment aneurysm with 3 mm width and approximately 10 mm length No evidence of stenosis or occlusion==>I spoke [place] [facility] to [place], for Intracranial LARON a1 segment aneurysm, No Neurosurgey available. No Neurology operations label clerk at this time either. I spoke with Dr. Cruz, possible incidential finding, doesn't need transfer but [facility] Neurosurgical Interventionalist maybe able to help. Andree will call me back once she has reached [facility] I spoke with Dr. Pena from [facility] NSY interventional, he believes syncope and aneurysm unrelated most incidental finding, needs outpatient follow up with nsy. Carotid doppler U/S PRELIMINARY REPORT. CAROTID DUPLEX DONE. <50% STENOSIS BILATERALLY BY DOPPLER VELOCITIES. ANTEGRADE VERTEBRAL ARTERY FLOW BILATERALLY.Initialized on 07/21/17 13:18 - END OF NOTE 2D ECHO reviewed and unremarkable Normal orthostatic vital signs Disposition: DC-01 TO HOME OR SELFCARE Time spent for discharge: 32 min Core Measure Documentation - Palliative Care Palliative Care/ Comfort Measures: Not Applicable - Core Measures Any of the following diagnoses?: none - VTE Discharge Requirements Deep Vein Thrombosis/Pulmonary Embolism Present on Admission: No Has pt received <5 days of overlap therapy or INR<2.0: No Anticoagulant overlap therapy prescribed at discharge: No Contraindication No Overlap Therapy order at DC: Not Indicated Exam - Physical Exam Narrative exam: GEN: WDWN, NAD, Awake, Alert, Orientated x 3 HEENT: NCAT, EOMI, PERRL, OP Clear NECK: supple, no adenopathy, no thyromegaly, no JVD CVS/HEART: RRR, normal S1S2, pulses present bilaterally CHEST/LUNGS: CTA B, Symmetrical chest expansion, good air entry bilaterally GI/Abdomen: soft, NTND, good bowel sounds, no guarding or rebound /Bladder: no suprapubic tenderness, no CVA or paraspinal tenderness EXT/Skin: no c/c/e, no obvious rash MSK: FROM x 4 Neuro: CN 2-12 grossly intact, no new focal deficits Psych: calm - Constitutional Vitals: Temp Pulse Resp BP Pulse Ox 97.9 F 84 20 138/90 95 07/22/17 05:00 07/22/17 05:23 07/22/17 05:00 07/22/17 05:23 07/22/17 05:00 Plan Activity: other (no strenous activity until cleared by Neurosurgery, including driving) Diet: low salt Additional Instructions: Take CD rom with imaging to Neurosurgery Follow up with: PRIMARY CARE, [Primary Care Provider] - 7 Days LOWELL FRANKLIN MD [Staff Physician] - 7 Days Prescriptions: AtorvaSTATin [Lipitor] 40 mg PO QHS #30 tablet Aspirin [Aspirin TAB] 325 mg PO DAILY #30 tablet hydrALAZINE [Apresoline TAB] 25 mg PO TID #90 tab HYDROcodone/APAP 10-325 [Imboden 10-325 mg TAB] 1 each PO Q4H PRN #10 tablet PRN Reason: Pain , Severe (7-10) Lisinopril/Hydrochlorothiazide [Zestoretic 20-25 mg] 1 tab PO QDAY #30 tab Potassium Chloride [K-Dur] 20 meq PO QDAY #30 tablet
[2017-07-22] MEDS: ZESTRIL PO SCH (10:12)
[2017-07-22] MEDS: K-DUR PO SCH (10:12)
[2017-07-22] MEDS: ASPIRIN PO SCH (10:13)
[2017-07-22] MEDS: FISH OIL PO SCH (10:13)
[2017-07-22] MEDS: PEPCID PO SCH (10:13)
[2017-07-22 11:26] VITALS: BP 166/101
[2017-07-22] MEDS ORDERED: HEPARIN SUB-Q SCH (13:13)
== END 2017-07-22 15:45 | disposition home or self-care (01) | DRG 74 ==
LOC: ED 17:23 → 3A 20:06
PROVIDERS: ADMIT Internal Medicine; ATTEND Internal Medicine
DX: G90.9 Disorder of the autonomic nervous system, unspecified (principal); I69.351 Hemiplegia and hemiparesis following cerebral infarction affecting right dominant side; R55 Syncope and collapse; S80.01XA Contusion of right knee, initial encounter; I10 Essential (primary) hypertension; E78.5 Hyperlipidemia, unspecified; E87.6 Hypokalemia; I72.8 Aneurysm of other specified arteries; Z87.891 Personal history of nicotine dependence
CPT/HCPCS: 36415; 70450; 70544; 70551; 72100; 72125; 80048; 80053; 80061; 81001; 82550; 82553; 84439; 84443; 84484; 85025; 85610; 85730; 93005; 93010; 93306; 93880; A9270-GY; J0360; J1644; J2405; J7030

== ENCOUNTER 2018-06-02 11:14 | Emergency (ER) | payer SELFPAY ==
[2018-06-02 11:50] LABS: Basophils % (Auto) 0.5 % (0.0-1.8); Eosinophils # (Auto) 0.2 K/mm3 (0.0-0.4); Eosinophils % (Auto) 4.2 % (0.0-4.3); Hematocrit 38.3 % (30.3-42.9); Hemoglobin 12.7 gm/dl (10.1-14.3); Mean Corpuscular HGB Conc 33 % (30-34); Mean Corpuscular Volume 91 fl (79-97); Monocytes # (Auto) 0.6 K/mm3 (0.0-0.8); Platelet Count 269 K/mm3 (140-440); Red Blood Count 4.21 M/mm3 (3.65-5.03); Red Cell Distribution Width 14.9 % (13.2-15.2)
[2018-06-02] MEDS ORDERED: APRESOLINE ONE (11:53)
[2018-06-02] MEDS ORDERED: APRESOLINE IV ONE (11:55)
[2018-06-02 12:15] LABS: Alanine Aminotransferase 9 units/L (7-56); Albumin 4.1 g/dL (3.9-5); BUN/Creatinine Ratio 22; Blood Urea Nitrogen 24 mg/dL (7-17); Calcium 9.4 mg/dL (8.4-10.2); Hemolysis Index 5
[2018-06-02] MEDS ORDERED: ZOFRAN ODT PO ONE (12:36)
[2018-06-02] MEDS ORDERED: TYLENOL #3 PO ONE (12:36)
--- NOTE | 2018-06-02 12:52 | Emergency Department Report ---
ED General Adult HPI - General Chief complaint: Chest Pain Stated complaint: HYPERTENSION Time Seen by Provider: 06/02/18 12:11 Source: EMS Mode of arrival: Stretcher Limitations: No Limitations - History of Present Illness Initial comments: Patient presents to the emergency department with a chief complaint of chest pain that started at 9:30 this morning. Patient denies any radiation of chest pain and describes the pain as dull in nature. She states she has chest pain when her blood pressure is elevated and today her BP is 216/178. The patient is on blood pressure medications at home but states that her blood pressure is hard to manage. Patient also complains of a headache for the last day which she states is consistent with episodes of elevated blood pressure and is not the worst headache of her life. She describes the headache as throbbing in nature. -: Gradual Location: head, chest Severity scale (0 -10): 6 Quality: aching Consistency: constant Improves with: none Worsens with: none Associated Symptoms: denies other symptoms Treatments Prior to Arrival: none - Related Data Home Medications Medication Instructions Recorded Confirmed Last Taken Lisinopril [Zestril] 40 mg PO QDAY 06/02/18 06/02/18 Unknown [place]-3 Fatty Acids/Fish Oil [Fish 1,000 mg PO DAILY 06/02/18 06/02/18 Unknown Oil] hydroCHLOROthiazide [Hctz] 12.5 mg PO QDAY 06/02/18 06/02/18 Unknown Previous Rx's Medication Instructions Recorded Last Taken Type Aspirin [Aspirin TAB] 325 mg PO DAILY #30 tablet 07/22/17 Unknown Rx amLODIPine [Norvasc] 10 mg PO DAILY #30 tab 06/02/18 Unknown Rx hydroCHLOROthiazide [Hctz] 12.5 mg PO BID #60 capsule 06/02/18 Unknown Rx Allergies Allergy/AdvReac Type Severity Reaction Status Date / Time Penicillins Allergy Unknown Verified 11/06/12 04:01 ED Review of Systems ROS: Stated complaint: HYPERTENSION Other details as noted in HPI Comment: All other systems reviewed and negative Constitutional: denies: chills, fever Eyes: denies: eye pain, eye discharge, vision change ENT: denies: ear pain, throat pain Respiratory: denies: cough, shortness of breath, wheezing Cardiovascular: chest pain. denies: palpitations Endocrine: no symptoms reported Gastrointestinal: denies: abdominal pain, nausea, diarrhea Genitourinary: denies: urgency, dysuria, discharge Musculoskeletal: denies: back pain, joint swelling, arthralgia Skin: denies: rash, lesions Neurological: headache. denies: weakness, paresthesias Psychiatric: denies: anxiety, depression Hematological/Lymphatic: denies: easy bleeding, easy bruising ED Past Medical Hx - Past Medical History Hx Hypertension: Yes Hx CVA: Yes (11-05-2012) Hx Heart Attack/AMI: No Hx Congestive Heart Failure: No Hx Diabetes: No Hx Deep Vein Thrombosis: No Hx Pulmonary Embolism: No Hx Liver Disease: No Hx Renal Disease: No Hx Sickle Cell Disease: No Hx Arthritis: No Hx Seizures: No Hx Kidney Stones: No Hx Asthma: No Hx COPD: No Hx Tuberculosis: No Hx Dementia: No Hx HIV: No Additional medical history: Aneurysm brain - Surgical History Hx Coronary Stent: No Hx Pacemaker: No Hx Internal Defibrillator: No - Social History Smoking Status: Never Smoker Substance Use Type: None - Medications Home Medications: Home Medications Medication Instructions Recorded Confirmed Last Taken Type Aspirin [Aspirin TAB] 325 mg PO DAILY #30 tablet 07/22/17 06/02/18 Unknown Rx Lisinopril [Zestril] 40 mg PO QDAY 06/02/18 06/02/18 Unknown History [place]-3 Fatty Acids/Fish Oil [Fish 1,000 mg PO DAILY 06/02/18 06/02/18 Unknown History Oil] amLODIPine [Norvasc] 10 mg PO DAILY #30 tab 06/02/18 Unknown Rx hydroCHLOROthiazide [Hctz] 12.5 mg PO BID #60 capsule 06/02/18 Unknown Rx hydroCHLOROthiazide [Hctz] 12.5 mg PO QDAY 06/02/18 06/02/18 Unknown History ED Physical Exam - General Limitations: No Limitations General appearance: alert, in no apparent distress - Head Head exam: Present: atraumatic, normocephalic - Eye Eye exam: Present: normal appearance, PERRL, EOMI - ENT ENT exam: Present: mucous membranes moist - Neck Neck exam: Present: normal inspection - Respiratory Respiratory exam: Present: normal lung sounds bilaterally. Absent: respiratory distress - Cardiovascular Cardiovascular Exam: Present: regular rate, normal rhythm. Absent: systolic murmur, diastolic murmur, rubs, gallop - GI/Abdominal GI/Abdominal exam: Present: soft, normal bowel sounds. Absent: distended, tenderness - Extremities Exam Extremities exam: Present: normal inspection - Back Exam Back exam: Present: normal inspection - Neurological Exam Neurological exam: Present: alert, oriented X3, CN II-XII intact. Absent: motor sensory deficit - Psychiatric Psychiatric exam: Present: normal affect, normal mood - Skin Skin exam: Present: warm, dry, intact, normal color. Absent: rash ED Course Vital Signs 06/02/18 06/02/18 06/02/18 11:22 11:26 11:30 Temperature 97.8 F Pulse Rate 68 79 81 Respiratory 12 12 11 L Rate Blood Pressure 234/141 Blood Pressure 216/178 [Right] O2 Sat by Pulse 100 99 98 Oximetry 06/02/18 06/02/18 06/02/18 11:56 13:04 13:21 Temperature Pulse Rate 80 78 80 Respiratory 20 20 Rate Blood Pressure 208/118 Blood Pressure 221/115 198/115 [Right] O2 Sat by Pulse 100 100 Oximetry 06/02/18 06/02/18 14:30 15:28 Temperature Pulse Rate 84 79 Respiratory Rate Blood Pressure 161/101 196/115 Blood Pressure [Right] O2 Sat by Pulse Oximetry ED Medical Decision Making - Lab Data Result diagrams: 06/02/18 11:34 06/02/18 11:34 Lab Results 06/02/18 06/02/18 06/02/18 Range/Units 11:34 11:34 13:31 WBC 5.9 (4.5-11.0) K/mm3 RBC 4.21 (3.65-5.03) M/mm3 Hgb 12.7 (10.1-14.3) gm/dl Hct 38.3 (30.3-42.9) % MCV 91 (79-97) fl MCH 30 (28-32) pg MCHC 33 (30-34) % RDW 14.9 (13.2-15.2) % Plt Count 269 (140-440) K/mm3 Lymph % (Auto) 34.0 (13.4-35.0) % [place] % (Auto) 11.0 H (0.0-7.3) % Eos % (Auto) 4.2 (0.0-4.3) % Baso % (Auto) 0.5 (0.0-1.8) % Lymph # 2.0 (1.2-5.4) K/mm3 [place] # 0.6 (0.0-0.8) K/mm3 Eos # 0.2 (0.0-0.4) K/mm3 Baso # 0.0 (0.0-0.1) K/mm3 Seg Neutrophils % 50.3 (40.0-70.0) % Seg Neutrophils # 3.0 (1.8-7.7) K/mm3 Sodium 140 (137-145) mmol/L Potassium 4.2 (3.6-5.0) mmol/L Chloride 103.2 (98-107) mmol/L Carbon Dioxide 24 (22-30) mmol/L Anion Gap 17 mmol/L BUN 24 H (7-17) mg/dL Creatinine 1.1 (0.7-1.2) mg/dL Estimated GFR > 60 ml/min BUN/Creatinine Ratio 22 % Glucose 85 (65-100) mg/dL Calcium 9.4 (8.4-10.2) mg/dL Total Bilirubin 0.30 (0.1-1.2) mg/dL AST 17 (5-40) units/L ALT 9 (7-56) units/L Alkaline Phosphatase 44 (35-129) units/L Troponin T < 0.010 < 0.010 (0.00-0.029) ng/mL Total Protein 7.0 (6.3-8.2) g/dL Albumin 4.1 (3.9-5) g/dL Albumin/Globulin Ratio 1.4 % Lipase 20 (13-60) units/L Urine Color (Yellow) Urine Turbidity (Clear) Urine pH (5.0-7.0) Ur Specific [place] (1.003-1.030) Urine Protein (Negative) mg/dL Urine Glucose (UA) (Negative) mg/dL Urine Ketones (Negative) mg/dL Urine Blood (Negative) Urine Nitrite (Negative) Urine Bilirubin (Negative) Urine Urobilinogen (<2.0) mg/dL Ur Leukocyte Esterase (Negative) Urine WBC (Auto) (0.0-6.0) /HPF Urine RBC (Auto) (0.0-6.0) /HPF U Epithel Cells (Auto) (0-13.0) /HPF Urine Bacteria (Auto) (Negative) /HPF Urine Mucus /HPF 06/02/18 Range/Units Unknown WBC (4.5-11.0) K/mm3 RBC (3.65-5.03) M/mm3 Hgb (10.1-14.3) gm/dl Hct (30.3-42.9) % MCV (79-97) fl MCH (28-32) pg MCHC (30-34) % RDW (13.2-15.2) % Plt Count (140-440) K/mm3 Lymph % (Auto) (13.4-35.0) % [place] % (Auto) (0.0-7.3) % Eos % (Auto) (0.0-4.3) % Baso % (Auto) (0.0-1.8) % Lymph # (1.2-5.4) K/mm3 [place] # (0.0-0.8) K/mm3 Eos # (0.0-0.4) K/mm3 Baso # (0.0-0.1) K/mm3 Seg Neutrophils % (40.0-70.0) % Seg Neutrophils # (1.8-7.7) K/mm3 Sodium (137-145) mmol/L Potassium (3.6-5.0) mmol/L Chloride (98-107) mmol/L Carbon Dioxide (22-30) mmol/L Anion Gap mmol/L BUN (7-17) mg/dL Creatinine (0.7-1.2) mg/dL Estimated GFR ml/min BUN/Creatinine Ratio % Glucose (65-100) mg/dL Calcium (8.4-10.2) mg/dL Total Bilirubin (0.1-1.2) mg/dL AST (5-40) units/L ALT (7-56) units/L Alkaline Phosphatase (35-129) units/L Troponin T (0.00-0.029) ng/mL Total Protein (6.3-8.2) g/dL Albumin (3.9-5) g/dL Albumin/Globulin Ratio % Lipase (13-60) units/L Urine Color Yellow (Yellow) Urine Turbidity Hazy (Clear) Urine pH 6.0 (5.0-7.0) Ur Specific [place] 1.010 (1.003-1.030) Urine Protein <15 mg/dl (Negative) mg/dL Urine Glucose (UA) Neg (Negative) mg/dL Urine Ketones Neg (Negative) mg/dL Urine Blood Mod (Negative) Urine Nitrite Neg (Negative) Urine Bilirubin Neg (Negative) Urine Urobilinogen < 2.0 (<2.0) mg/dL Ur Leukocyte Esterase Neg (Negative) Urine WBC (Auto) 1.0 (0.0-6.0) /HPF Urine RBC (Auto) 7.0 (0.0-6.0) /HPF U Epithel Cells (Auto) 6.0 (0-13.0) /HPF Urine Bacteria (Auto) 4+ (Negative) /HPF Urine Mucus Few /HPF - EKG Data -: EKG Interpreted by Me EKG shows normal: sinus rhythm Rate: normal - EKG Data Interpretation: other (PVC's) - Radiology Data Radiology results: report reviewed - Medical Decision Making Discussed results with the patient Headache improved with medications Blood pressure improved with medications Patient given IV hydralazine Third troponin was offered but the patient stated she was ready to go Critical care time in (mins) excluding proc time.: 45 Critical care attestation.: If time is entered above; I have spent that time in minutes in the direct care of this critically ill patient, excluding procedure time. ED Disposition Clinical Impression: Hypertension, Chest pain, Headache Disposition: DC-01 TO HOME OR SELFCARE Is pt being admited?: No Does the pt Need Aspirin: No Condition: Stable Instructions: Hypertension (ED), Chest Pain (ED), Acute Headache (ED) Additional Instructions: return if worse Please stop taking lisinopril and hydralazine Prescriptions: hydroCHLOROthiazide [Hctz] 12.5 mg PO BID #60 capsule amLODIPine [Norvasc] 10 mg PO DAILY #30 tab Referrals: RAS BEAULIEU MD [Primary Care Provider] - 3-5 Days Time of Disposition: 16:14
[2018-06-02 13:04] LABS: Bacteria,Urine 4+ /HPF (Negative); Bilirubin,Urine NEG (Negative); Blood,Urine MOD (Negative); Color,Urine Yellow (Yellow); Mucus,Urine FEW /HPF; Protein,Urine <15 mg/dL mg/dL (Negative); Urobilinogen,Urine < 2.0 mg/dL (<2.0)
--- NOTE | 2018-06-02 13:26 | Cat Scan Report ---
CT HEAD WITHOUT CONTRAST: HISTORY: Headache. TECHNIQUE: Sequential 2.5mm CT images. COMPARISON: 03/28/18. FINDINGS: Cerebral Parenchyma: Mild nonspecific chronic white matter changes are stable since the previous exam. The remaining brain parenchyma is within normal limits. Cerebellum: Within normal limits. Brainstem: Within normal limits. Ventricles: Normal. Sella: Normal. Extra-axial spaces: Normal. Basal Cisterns: Normal. Intracranial Hemorrhage: None. Midline Shift: None. Calvarium: Normal. Sinuses: Normal. Mastoid Air Cells: Normal. Visualized Orbits: Normal. IMPRESSION: Mild nonspecific chronic white matter changes. No acute intracranial process.
[2018-06-02] MEDS ORDERED: CATAPRES PO ONE ×2 (14:01→15:27)
[2018-06-02 15:28] VITALS: BP 196/115
== END 2018-06-02 16:28 | disposition home or self-care (01) ==
LOC: ED 11:14
DX: I10 Essential (primary) hypertension (principal); R07.9 Chest pain, unspecified; R51 Headache; Z86.73 Personal history of transient ischemic attack (TIA), and cerebral infarction without residual deficits
CPT/HCPCS: 36415; 70450; 71045; 80048; 80053; 81001; 83690; 84484; 85025; 93005; 93010; 96374; 99291; J0360; Q0162

== ENCOUNTER 2018-06-27 11:46 | Emergency (ER) | payer SELFPAY ==
--- NOTE | 2018-06-27 11:58 | Emergency Department Report ---
Blank Doc - Documentation Documentation: This is a 58-year-old female that presents with headache with right sided facial swelling. Exam: no facial swelling noted on exam. Neuro exam normal. Normal strength. No facial drooping or one-sided weakness. EOMI. PERRLA. This initial assessment/diagnostic orders/clinical plan/treatment(s) is/are subject to change based on patient's health status, clinical progression and re- assessment by fellow clinical providers in the ED. Further treatment and workup at subsequent clinical providers discretion. Patient/guardians urged not to elope from the ED as their condition may be serious if not clinically assessed and managed. Initial orders include: 1- Patient sent to MAIN for further evaluation and treatment 2- CT head 3- labs
--- NOTE | 2018-06-27 12:26 | Cat Scan Report ---
CT HEAD WITHOUT CONTRAST: HISTORY: Headache. TECHNIQUE: Sequential 2.5mm CT images. COMPARISON: 06/02/18. 03/28/18. FINDINGS: Cerebral Parenchyma: There are mild nonspecific chronic white matter changes which are stable since previous exams. The remainder of the brain parenchyma demonstrates normal attenuation. The lion-white interface is well defined. No chronic infarct is identified. Cerebellum: Within normal limits. Brainstem: Within normal limits. Ventricles: Normal. Sella: Normal. Extra-axial spaces: Normal. Basal Cisterns: Normal. Intracranial Hemorrhage: None. Midline Shift: None. Calvarium: The calvarium is intact. On the most inferior images, there is subtle expansion and groundglass density in the left sphenoid bone extending to the left the pterygoid plates. This has the appearance of focal fibrous dysplasia. This nearly obliterates the left sphenoid sinus. This is unchanged over multiple previous exams. Sinuses: Adequately aerated. Mastoid Air Cells: Normal. Visualized Orbits: Normal. IMPRESSION: No acute intracranial process is identified. Mild nonspecific chronic white matter changes. 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 See above.
[2018-06-27 12:34] LABS: Basophils % (Auto) 0.4 % (0.0-1.8); Eosinophils # (Auto) 0.2 K/mm3 (0.0-0.4); Hematocrit 39.3 % (30.3-42.9); Hemoglobin 13.1 gm/dl (10.1-14.3); Lymphocytes # (Auto) 2.3 K/mm3 (1.2-5.4); Lymphocytes % (Auto) 35.4 % (13.4-35.0); Mean Corpuscular HGB Conc 33 % (30-34); Mean Corpuscular Volume 91 fl (79-97); Monocytes # (Auto) 0.5 K/mm3 (0.0-0.8); Monocytes % (Auto) 7.7 % (0.0-7.3); Platelet Count 298 K/mm3 (140-440); Red Blood Count 4.34 M/mm3 (3.65-5.03); Red Cell Distribution Width 13.9 % (13.2-15.2)
[2018-06-27 12:50] LABS: Calcium 9.6 mg/dL (8.4-10.2)
--- NOTE | 2018-06-27 14:28 | Emergency Department Report ---
ED Headache HPI - General Chief Complaint: Headache Stated Complaint: HEADACHE/(R) SIDE OF FACE SWOLLEN Time Seen by Provider: 06/27/18 11:55 - History of Present Illness Initial Comments: Patient is 58 years old female with history of brain aneurysm in 2012 treated at [facility] with angioplasty. Patient presented to the ER complaining of headache and right facial swelling since yesterday. Patient denied any fever or chills. Patient denied any neck pain or weakness numbness or tingling sensation. No bowel or bladder incontinence. Patient also complaining of dental pain to the right lower premolar tooth. Timing/Duration: 24 hours Quality: moderate Head Injury Location: temporal Recent Head Trauma: no recent headache/trauma, occasional headaches Associated Symptoms: denies symptoms Allergies/Adverse Reactions: Allergies Penicillins Allergy (Verified 11/06/12 04:01) Unknown Home Medications: Ambulatory Orders Aspirin [Aspirin TAB] 325 mg PO DAILY #30 tablet 07/22/17 Lisinopril [Zestril] 40 mg PO QDAY 06/02/18 Jasper-3 Fatty Acids/Fish Oil [Fish Oil] 1,000 mg PO DAILY 06/02/18 amLODIPine [Norvasc] 10 mg PO DAILY #30 tab 06/02/18 hydroCHLOROthiazide [Hctz] 12.5 mg PO BID #60 capsule 06/02/18 hydroCHLOROthiazide [Hctz] 12.5 mg PO QDAY 06/02/18 ED Review of Systems ROS: Stated complaint: HEADACHE/(R) SIDE OF FACE SWOLLEN Other details as noted in HPI Comment: All other systems reviewed and negative Constitutional: denies: chills ENT: dental pain Respiratory: denies: shortness of breath, SOB with exertion Gastrointestinal: denies: abdominal pain Musculoskeletal: denies: back pain Neurological: headache. denies: weakness, numbness, paresthesias, confusion, abnormal gait ED Past Medical Hx - Past Medical History Previous Medical History?: Yes Hx Hypertension: Yes Hx CVA: Yes (11-05-2012) Hx Heart Attack/AMI: No Hx Congestive Heart Failure: No Hx Diabetes: No Hx Deep Vein Thrombosis: No Hx Pulmonary Embolism: No Hx Liver Disease: No Hx Renal Disease: No Hx Sickle Cell Disease: No Hx Arthritis: No Hx Seizures: No Hx Kidney Stones: No Hx Asthma: No Hx COPD: No Hx Tuberculosis: No Hx Dementia: No Hx HIV: No Additional medical history: Aneurysm brain - Surgical History Past Surgical History?: No Hx Coronary Stent: No Hx Pacemaker: No Hx Internal Defibrillator: No - Social History Smoking Status: Never Smoker Substance Use Type: Alcohol - Medications Home Medications: Home Medications Medication Instructions Recorded Confirmed Last Taken Type Aspirin [Aspirin TAB] 325 mg PO DAILY #30 tablet 07/22/17 06/02/18 Unknown Rx Lisinopril [Zestril] 40 mg PO QDAY 06/02/18 06/02/18 Unknown History Jasper-3 Fatty Acids/Fish Oil [Fish 1,000 mg PO DAILY 06/02/18 06/02/18 Unknown History Oil] amLODIPine [Norvasc] 10 mg PO DAILY #30 tab 06/02/18 Unknown Rx hydroCHLOROthiazide [Hctz] 12.5 mg PO BID #60 capsule 06/02/18 Unknown Rx hydroCHLOROthiazide [Hctz] 12.5 mg PO QDAY 06/02/18 06/02/18 Unknown History ED Physical Exam - General Limitations: No Limitations General appearance: alert, in no apparent distress - Head Head exam: Present: atraumatic, normocephalic, normal inspection - ENT ENT exam: Present: normal exam, normal orophraynx, mucous membranes moist, other (dental caries to the right lower tooth) - Neck Neck exam: Present: normal inspection. Absent: tenderness, meningismus - Respiratory Respiratory exam: Present: normal lung sounds bilaterally. Absent: respiratory distress, wheezes, rales, rhonchi, stridor, chest wall tenderness, accessory muscle use, decreased breath sounds, prolonged expiratory - Cardiovascular Cardiovascular Exam: Present: regular rate, normal rhythm, normal heart sounds - GI/Abdominal GI/Abdominal exam: Present: soft, normal bowel sounds. Absent: distended, tenderness, guarding, rebound, rigid, organomegaly, mass, bruit, pulsatile mass, hernia - Extremities Exam Extremities exam: Present: normal inspection, full ROM, normal capillary refill. Absent: tenderness, pedal edema, joint swelling, calf tenderness - Back Exam Back exam: Present: normal inspection, full ROM. Absent: tenderness, CVA tenderness (R), CVA tenderness (L), muscle spasm, paraspinal tenderness, vertebral tenderness - Neurological Exam Neurological exam: Present: alert, oriented X3, CN II-XII intact, normal gait, reflexes normal. Absent: motor sensory deficit - Skin Skin exam: Present: warm, intact, normal color ED Course Vital Signs 06/27/18 11:56 Temperature 98.7 F Pulse Rate 92 H Respiratory 16 Rate Blood Pressure 181/112 O2 Sat by Pulse 100 Oximetry ED Medical Decision Making - Lab Data Result diagrams: 06/27/18 12:20 06/27/18 12:20 - Radiology Data Radiology results: report reviewed CT brain is negative for acute finding. - Medical Decision Making Patient's CT read as negative for acute finding. I believe his symptoms is most likely related to her dental abscess. I prescribed patient had clindamycin and advised to follow-up with her primary care physician and dentist in the next 2- 3 days. The patient to return to the ER if her symptoms is not improving. Critical care attestation.: If time is entered above; I have spent that time in minutes in the direct care of this critically ill patient, excluding procedure time. ED Disposition Clinical Impression: Headache, Dental abscess Disposition: - TO HOME OR SELFCARE Is pt being admited?: No Condition: Stable Instructions: Dental Abscess (ED), Acute Headache (ED) Referrals: RAS BEAULIEU MD [Primary Care Provider] - 3-5 Days Forms: Work/School Release Form(ED)
[2018-06-27 14:41] VITALS: BP 160/98
== END 2018-06-27 14:41 | disposition home or self-care (01) ==
LOC: ED 11:46
DX: K04.7 Periapical abscess without sinus (principal); R51 Headache; I10 Essential (primary) hypertension; Z79.899 Other long term (current) drug therapy; Z86.73 Personal history of transient ischemic attack (TIA), and cerebral infarction without residual deficits; Z88.0 Allergy status to penicillin
CPT/HCPCS: 36415; 70450; 80048; 85025

== ENCOUNTER 2018-08-04 09:13 | Emergency (ER) | payer SELFPAY ==
[2018-08-04] MEDS ORDERED: CATAPRES PO ONE (10:50)
[2018-08-04] MEDS ORDERED: NORCO 5/325 PO ONE (10:53)
[2018-08-04 11:09] LABS: Hematocrit 37.4 % (30.3-42.9); Hemoglobin 12.3 gm/dl (10.1-14.3); Mean Corpuscular HGB Conc 33 % (30-34); Mean Corpuscular Volume 91 fl (79-97); Platelet Count 237 K/mm3 (140-440); Red Blood Count 4.12 M/mm3 (3.65-5.03); Red Cell Distribution Width 14.2 % (13.2-15.2)
--- NOTE | 2018-08-04 11:17 | Emergency Department Report ---
ED Headache HPI - General Chief Complaint: Headache Stated Complaint: NOSE BLEED Time Seen by Provider: 08/04/18 10:30 Source: patient Exam Limitations: no limitations - History of Present Illness Initial Comments: 58-year-old -[place] female with history of labile hypertension, presents to ED with headache, nosebleed. Her symptoms appear gone on intermittently for the past 2 days, she rates them as severe in severity. She currently does not have any nosebleed but have a 6 out of 10, sharp headache, located in the front of her head. Also has noticed that her blood pressure has been difficult to be controlled the last 2 days. She takes lisinopril 40 mg daily, amlodipine 10 mg daily, hydrochlorothiazide 12.5 mg daily, follow her blood pressure. For headache she has been taking tramadol 50 mg by mouth, Zofran 4 mg by mouth with only minimal relief. Upon presentation to the ED her blood pressure was 194/112, she was promptly placed to ED bed 23, received c lonidine 0.1 and for her blood pressure, and norco 5 mg by mouth for her headache. She was sent to CAT scan to rule out any intracranial abnormalities, and a CBC, chemistry were drawn. Timing/Duration: other (2 days) Quality: severe Head Injury Location: frontal Recent Head Trauma: frequent headaches Modifying Factors: improves with: rest Associated Symptoms: other (nosebleed) Allergies/Adverse Reactions: Allergies Penicillins Allergy (Verified 08/04/18 09:21) Swelling Home Medications: Ambulatory Orders Aspirin 325 mg PO DAILY #30 tablet 07/22/17 Faith-3 Fatty Acids/Fish Oil [Fish Oil] 1,000 mg PO DAILY 06/02/18 amLODIPine [Norvasc] 10 mg PO DAILY #30 tab 06/02/18 hydroCHLOROthiazide [Hctz] 12.5 mg PO BID #60 capsule 06/02/18 Butalb/Acetaminophen/Caffeine [Fioricet 50-300-40 mg CAP] 1 cap PO Q8HR PRN #7 cap 08/04/18 NIFEdipine XL [Procardia Xl] 60 mg PO QDAY 1 Days #30 tablet 08/04/18 ED Review of Systems ROS: Stated complaint: NOSE BLEED Other details as noted in HPI Comment: All other systems reviewed and negative ENT: epistaxis Neurological: headache ED Past Medical Hx - Past Medical History Hx Hypertension: Yes Hx CVA: Yes (11-05-2012) Hx Heart Attack/AMI: No Hx Congestive Heart Failure: No Hx Diabetes: No Hx Deep Vein Thrombosis: No Hx Pulmonary Embolism: No Hx Liver Disease: No Hx Renal Disease: No Hx Sickle Cell Disease: No Hx Arthritis: No Hx Seizures: No Hx Kidney Stones: No Hx Asthma: No Hx COPD: No Hx Tuberculosis: No Hx Dementia: No Hx HIV: No Additional medical history: Aneurysm brain - Surgical History Hx Coronary Stent: No Hx Pacemaker: No Hx Internal Defibrillator: No - Social History Smoking Status: Never Smoker Substance Use Type: Alcohol - Medications Home Medications: Home Medications Medication Instructions Recorded Confirmed Last Taken Type Aspirin 325 mg PO DAILY #30 tablet 07/22/17 08/04/18 Unknown Rx Faith-3 Fatty Acids/Fish Oil [Fish 1,000 mg PO DAILY 06/02/18 08/04/18 Unknown History Oil] amLODIPine [Norvasc] 10 mg PO DAILY #30 tab 06/02/18 08/04/18 Unknown Rx hydroCHLOROthiazide [Hctz] 12.5 mg PO BID #60 capsule 06/02/18 08/04/18 Unknown Rx Butalb/Acetaminophen/Caffeine 1 cap PO Q8HR PRN #7 cap 08/04/18 Unknown Rx [Fioricet 50-300-40 mg CAP] NIFEdipine XL [Procardia Xl] 60 mg PO QDAY 1 Days #30 tablet 08/04/18 Unknown Rx ED Physical Exam - General Limitations: No Limitations General appearance: alert, in no apparent distress - Head Head exam: Present: atraumatic, normocephalic - Eye Eye exam: Present: normal appearance, PERRL, EOMI - ENT ENT exam: Present: normal exam - Neck Neck exam: Present: normal inspection - Respiratory Respiratory exam: Present: normal lung sounds bilaterally - Cardiovascular Cardiovascular Exam: Present: regular rate, normal rhythm - GI/Abdominal GI/Abdominal exam: Present: soft, distended - Rectal Rectal exam: Present: deferred - Extremities Exam Extremities exam: Present: normal inspection, full ROM - Back Exam Back exam: Present: normal inspection - Neurological Exam Neurological exam: Present: alert, oriented X3 - Psychiatric Psychiatric exam: Present: normal affect, normal mood - Skin Skin exam: Present: warm, normal color ED Course Vital Signs 08/04/18 08/04/18 08/04/18 09:29 11:11 11:14 Temperature 98.4 F Pulse Rate 78 76 Respiratory 19 16 Rate Blood Pressure 161/100 Blood Pressure 194/112 [Left] O2 Sat by Pulse 100 98 Oximetry 08/04/18 08/04/18 08/04/18 11:43 12:32 13:06 Temperature Pulse Rate 72 72 68 Respiratory 16 14 18 Rate Blood Pressure Blood Pressure 174/111 140/88 140/87 [Left] O2 Sat by Pulse 100 98 98 Oximetry - Reevaluation(s) Reevaluation #1: 08/04/18 11:18 Patient went to CAT scan without issues, receive [place] 5 mg for headache, clonidine 0.1 for her blood pressure, relief of symptoms. ED Medical Decision Making - Lab Data Result diagrams: 08/04/18 Unknown 08/04/18 10:17 - Medical Decision Making 58-year-old -[place] female with history of labile hypertension, presents to ED with headache, nosebleed. Her symptoms appear gone on intermittently for the past 2 days, she rates them as severe in severity. She currently does not have any nosebleed but have a 6 out of 10, sharp headache, located in the front of her head. Also has noticed that her blood pressure has been difficult to be controlled the last 2 days. She takes lisinopril 40 mg daily, amlodipine 10 mg daily, hydrochlorothiazide 12.5 mg daily, follow her blood pressure. For headache she has been taking tramadol 50 mg by mouth, Zofran 4 mg by mouth with only minimal relief. Upon presentation to the ED her blood pressure was 194/112, she was promptly placed to ED bed 23, received clonidine 0.1 and for her blood pressure, and norco 5 mg by mouth for her headache. She was sent to CAT scan to rule out any intracranial abnormalities, and a CBC, chemistry were drawn. X-ray - Differential Diagnosis labile hypertension, hypertensive emergency, epistaxis, CVA hemorrhagic. Critical Care Time: No Critical care attestation.: If time is entered above; I have spent that time in minutes in the direct care of this critically ill patient, excluding procedure time. ED Disposition Clinical Impression: Hypertension Qualifiers: Hypertension type: essential hypertension Qualified Code(s): I10 - Essential (primary) hypertension Headache Qualifiers: Headache type: tension-type Headache chronicity pattern: acute headache Intractability: not intractable Qualified Code(s): G44.209 - Tension-type headache, unspecified, not intractable Disposition: DC-01 TO HOME OR SELFCARE Is pt being admited?: No Does the pt Need Aspirin: No Condition: Stable Instructions: Hypertension (ED) Prescriptions: Butalb/Acetaminophen/Caffeine [Fioricet 50-300-40 mg CAP] 1 cap PO Q8HR PRN #7 cap PRN Reason: Headache NIFEdipine XL [Procardia Xl] 60 mg PO QDAY 1 Days #30 tablet Referrals: RAS BEAULIEU MD [Primary Care Provider] - 3-5 Days Forms: Work/School Release Form(ED)
[2018-08-04 11:21] LABS: Alanine Aminotransferase 10 units/L (7-56); Albumin 4.2 g/dL (3.9-5); BUN/Creatinine Ratio 25; Blood Urea Nitrogen 27 mg/dL (7-17); Calcium 9.4 mg/dL (8.4-10.2); Hemolysis Index 39
--- NOTE | 2018-08-04 11:43 | Cat Scan Report ---
PROCEDURE: CT HEAD/BRAIN WO CON TECHNIQUE: Computerized tomography of the head was performed without contrast material. CT DOSE LENGTH PRODUCT: 920.5 mGycm HISTORY: headache COMPARISONS: CT of the head performed on 07/20/2017 . FINDINGS: There is no parenchymal hemorrhage or extra-axial fluid collection. There is no mass or mass effect. There is no acute territorial infarct. There are scattered areas of decreased attenuation in the subc ortical and periventricular white matter, likely due to chronic microvascular ischemic disease. The v entricles are midline. The subarachnoid spaces and basilar cisterns are clear. There are atheromatous calcifications of the bilateral internal carotid arteries. There are is no skull fracture. The paran linda sinuses and mastoid air cells are clear. The bilateral orbits are intact. IMPRESSION: No acute intracranial abnormality. Chronic microvascular ischemic change in the subcortical and periventricular white matter . Different ial diagnosis includes demyelinating disease. This document is electronically signed by Shaneka Yee MD., August 04 2018 11:41:44 AM ET
[2018-08-04] MEDS ORDERED: PROCARDIA XL PO ONE (11:50)
[2018-08-04 13:41] VITALS: BP 140/87
== END 2018-08-04 13:06 | disposition home or self-care (01) ==
LOC: ED 09:13
DX: R51 Headache (principal); I10 Essential (primary) hypertension; Z86.73 Personal history of transient ischemic attack (TIA), and cerebral infarction without residual deficits; Z88.0 Allergy status to penicillin
CPT/HCPCS: 36415; 70450; 80053; 85027

== ENCOUNTER 2018-09-09 12:02 | Emergency (ER) | payer SELFPAY ==
--- NOTE | 2018-09-09 12:16 | Event Note ---
ED Screening Note Date of service: 09/09/18 Time: 12:12 ED Screening Note: This is a 58 y.o. F. that presents to the ER with RLE pain for 2 days. Patient also reports numbness and tingling in right hand. PMH CVA in 2012, aneurysm, HTN This initial assessment/diagnostic orders/clinical plan/treatment(s) is/are subject to change based on patients health status, clinical progression and re- assessment by fellow clinical providers in the ED. Further treatment and workup at subsequent clinical providers discretion. Patient/guardian urged not to elope from the ED as their condition may be serious if not clinically assessed and managed. Initial orders include: Labs and doppler
[2018-09-09 12:33] LABS: Basophils % (Auto) 0.3 % (0.0-1.8); Eosinophils # (Auto) 0.1 K/mm3 (0.0-0.4); Eosinophils % (Auto) 2.5 % (0.0-4.3); Hematocrit 38.3 % (30.3-42.9); Hemoglobin 12.8 gm/dl (10.1-14.3); Lymphocytes # (Auto) 1.9 K/mm3 (1.2-5.4); Lymphocytes % (Auto) 33.3 % (13.4-35.0); Mean Corpuscular HGB Conc 33 % (30-34); Mean Corpuscular Volume 89 fl (79-97); Monocytes # (Auto) 0.4 K/mm3 (0.0-0.8); Monocytes % (Auto) 6.4 % (0.0-7.3); Platelet Count 266 K/mm3 (140-440); Red Blood Count 4.32 M/mm3 (3.65-5.03); Red Cell Distribution Width 13.9 % (13.2-15.2)
[2018-09-09 12:47] LABS: Calcium 9.8 mg/dL (8.4-10.2)
--- NOTE | 2018-09-09 13:12 | Vascular Lab Report ---
DUPLEX DOPPLER LOWER EXTREMITY VEINS, RIGHT INDICATION: Right leg swelling and pain. TECHNIQUE: Duplex doppler imaging was performed through the veins of the right lower extremity using venous comp ression and other maneuvers. COMPARISON: None available. FINDINGS: Common Femoral vein: Negative. Femoral vein: Negative. Popliteal vein: Negative. Calf veins: Negative. Additional findings: None. IMPRESSION: 1. No sonographic evidence for DVT in the right lower extremity. Signer Name: Warren Hernandez MD Signed: 09/09/2018 1:08 PM Workstation Name: [id number]
[2018-09-09] MEDS ORDERED: CATAPRES PO ONE (14:00)
--- NOTE | 2018-09-09 14:00 | Emergency Department Report ---
HPI - General Chief Complaint: Neuro Symptoms/Deficit Time Seen by Provider: 09/09/18 12:12 - HPI HPI: This is a 58 y.o. F. that presents to the ER with RLE pain for 2 days. Patient also reports numbness and tingling in right hand. PMH CVA in 2012, aneurysm, HTN ED Past Medical Hx - Past Medical History Hx Hypertension: Yes Hx CVA: Yes (11-05-2012) Hx Heart Attack/AMI: No Hx Congestive Heart Failure: No Hx Diabetes: No Hx Deep Vein Thrombosis: No Hx Pulmonary Embolism: No Hx Liver Disease: No Hx Renal Disease: No Hx Sickle Cell Disease: No Hx Arthritis: No Hx Seizures: No Hx Kidney Stones: No Hx Asthma: No Hx COPD: No Hx Tuberculosis: No Hx Dementia: No Hx HIV: No Additional medical history: Aneurysm brain - Surgical History Hx Coronary Stent: No Hx Pacemaker: No Hx Internal Defibrillator: No - Social History Smoking Status: Never Smoker Substance Use Type: Alcohol - Medications Home Medications: Home Medications Medication Instructions Recorded Confirmed Last Taken Type Aspirin 325 mg PO DAILY #30 tablet 07/22/17 08/04/18 Unknown Rx Dewy Rose-3 Fatty Acids/Fish Oil [Fish 1,000 mg PO DAILY 06/02/18 08/04/18 Unknown H istory Oil] Butalb/Acetaminophen/Caffeine 1 cap PO Q8HR PRN #7 cap 08/04/18 Unknown Rx [Fioricet 50-300-40 mg CAP] NIFEdipine XL [Procardia Xl] 60 mg PO QDAY 30 Days #30 tablet 09/09/18 Unknown Rx amLODIPine [Norvasc] 10 mg PO DAILY 30 Days #30 tab 09/09/18 Unknown Rx hydroCHLOROthiazide [HCTZ] 12.5 mg PO BID 30 Days #60 capsule 09/09/18 Unknown Rx ED Review of Systems ROS: Stated complaint: R LEG/ARM PAIN Other details as noted in HPI Physical Exam - Physical Exam Vital Signs: Vital Signs 09/09/18 12:12 Temperature 97.5 F L Pulse Rate 97 H Respiratory 18 Rate Blood Pressure 173/109 O2 Sat by Pulse 100 Oximetry ED Course Vital Signs 09/09/18 12:12 Temperature 97.5 F L Pulse Rate 97 H Respiratory 18 Rate Blood Pressure 173/109 O2 Sat by Pulse 100 Oximetry ED Medical Decision Making - Lab Data Result diagrams: 09/09/18 12:19 09/09/18 12:19 Critical care attestation.: If time is entered above; I have spent that time in minutes in the direct care of this critically ill patient, excluding procedure time. ED Disposition Clinical Impression: Hypertension Qualifiers: Hypertension type: essential hypertension Qualified Code(s): I10 - Essential (primary) hypertension Disposition: TO HOME OR SELFCARE Is pt being admited?: No Does the pt Need Aspirin: No Condition: Stable Instructions: Hypertension (ED) Prescriptions: hydroCHLOROthiazide [HCTZ] 12.5 mg PO BID 30 Days #60 capsule amLODIPine [Norvasc] 10 mg PO DAILY 30 Days #30 tab NIFEdipine XL [Procardia Xl] 60 mg PO QDAY 30 Days #30 tablet
[2018-09-09 14:45] VITALS: BP 149/91
== END 2018-09-09 14:45 | disposition home or self-care (01) ==
LOC: ED 12:02
DX: I10 Essential (primary) hypertension (principal); I67.1 Cerebral aneurysm, nonruptured; Z86.73 Personal history of transient ischemic attack (TIA), and cerebral infarction without residual deficits; Z79.899 Other long term (current) drug therapy; Z88.0 Allergy status to penicillin
CPT/HCPCS: 36415; 80048; 85025; 85379

== ENCOUNTER 2018-09-18 10:11 | Emergency (ER) | payer SELFPAY ==
[2018-09-18] MEDS ORDERED: DECADRON IM ONE (11:05)
[2018-09-18] MEDS ORDERED: NORCO 10/325 PO ONE (11:05)
--- NOTE | 2018-09-18 11:12 | Emergency Department Report ---
ED General Adult HPI - General Chief complaint: Extremity Injury, Lower Stated complaint: L FOOT/SIDE PAIN Time Seen by Provider: 09/18/18 10:43 Source: patient, family Mode of arrival: Wheelchair Limitations: No Limitations - History of Present Illness Initial comments: this is a 58-year-old female nontoxic, well nourished in appearance, no acute signs of distress presents to the ED with c/o of left ankle and great toe pain and swelling. Patient has history of gout if symptoms are very similar. Patient denies any trauma. Patient denies any fever, chills, nausea, vomiting, chest pain, shortness of breath, headache or stiff neck. Patient states allergies to penicillin with no significant past medical history. -: This morning Location: lower extremity Radiation: non-radiation Severity scale (0 -10): 8 Quality: aching Consistency: constant Improves with: none Worsens with: none Associated Symptoms: denies other symptoms. denies: confusion, chest pain, cough, diaphoresis, fever/chills, headaches, loss of appetite, malaise, nausea/vomiting, rash, seizure, shortness of breath, syncope, weakness - Related Data Home Medications Medication Instructions Recorded Confirmed Last Taken [place]-3 Fatty Acids/Fish Oil [Fish 1,000 mg PO DAILY 06/02/18 08/04/18 Unknown Oil] Previous Rx's Medication Instructions Recorded Last Taken Type Aspirin 325 mg PO DAILY #30 tablet 07/22/17 Unknown Rx Butalb/Acetaminophen/Caffeine 1 cap PO Q8HR PRN #7 cap 08/04/18 Unknown Rx [Fioricet 50-300-40 mg CAP] NIFEdipine XL [Procardia Xl] 60 mg PO QDAY 30 Days #30 tablet 09/09/18 Unknown Rx amLODIPine [Norvasc] 10 mg PO DAILY 30 Days #30 tab 09/09/18 Unknown Rx hydroCHLOROthiazide [HCTZ] 12.5 mg PO BID 30 Days #60 capsule 09/09/18 Unknown Rx Acetaminophen/Codeine [Tylenol 1 tab PO Q6H PRN #12 tab 09/18/18 Unknown Rx /Codeine # 3 tab] Prednisone [predniSONE 10 mg 10 mg PO .TAPER #1 tab.ds.pk 09/18/18 Unknown Rx (6-Day Pack, 21 Tabs)] Allergies Allergy/AdvReac Type Severity Reaction Status Date / Time Penicillins Allergy Swelling Verified 08/04/18 09:21 ED Review of Systems ROS: Stated complaint: L FOOT/SIDE PAIN Other details as noted in HPI Constitutional: denies: chills, fever Eyes: denies: eye pain, eye discharge, vision change ENT: denies: ear pain, throat pain Respiratory: denies: cough, shortness of breath, wheezing Cardiovascular: denies: chest pain, palpitations Endocrine: no symptoms reported Gastrointestinal: denies: abdominal pain, nausea, diarrhea Genitourinary: denies: urgency, dysuria, discharge Musculoskeletal: denies: back pain, joint swelling, arthralgia Skin: denies: rash, lesions Neurological: denies: headache, weakness, paresthesias Psychiatric: denies: anxiety, depression Hematological/Lymphatic: denies: easy bleeding, easy bruising ED Past Medical Hx - Past Medical History Hx Hypertension: Yes Hx CVA: Yes (11-05-2012) Hx Heart Attack/AMI: No Hx Congestive Heart Failure: No Hx Diabetes: No Hx Deep Vein Thrombosis: No Hx Pulmonary Embolism: No Hx Liver Disease: No Hx Renal Disease: No Hx Sickle Cell Disease: No Hx Arthritis: No Hx Seizures: No Hx Kidney Stones: No Hx Asthma: No Hx COPD: No Hx Tuberculosis: No Hx Dementia: No Hx HIV: No Additional medical history: Aneurysm brain - Surgical History Hx Coronary Stent: No Hx Pacemaker: No Hx Internal Defibrillator: No - Social History Smoking Status: Never Smoker Substance Use Type: None - Medications Home Medications: Home Medications Medication Instructions Recorded Confirmed Last Taken Type Aspirin 325 mg PO DAILY #30 tablet 07/22/17 08/04/18 Unknown Rx [place]-3 Fatty Acids/Fish Oil [Fish 1,000 mg PO DAILY 06/02/18 08/04/18 Unknown History Oil] Butalb/Acetaminophen/Caffeine 1 cap PO Q8HR PRN #7 cap 08/04/18 Unknown Rx [Fioricet 50-300-40 mg CAP] NIFEdipine XL [Procardia Xl] 60 mg PO QDAY 30 Days #30 tablet 09/09/18 Unknown Rx amLODIPine [Norvasc] 10 mg PO DAILY 30 Days #30 tab 09/09/18 Unknown Rx hydroCHLOROthiazide [HCTZ] 12.5 mg PO BID 30 Days #60 capsule 09/09/18 Unknown Rx Acetaminophen/Codeine [Tylenol 1 tab PO Q6H PRN #12 tab 09/18/18 Unknown Rx /Codeine # 3 tab] Prednisone [predniSONE 10 mg 10 mg PO .TAPER #1 tab.ds.pk 09/18/18 Unknown Rx (6-Day Pack, 21 Tabs)] ED Physical Exam - General Limitations: No Limitations General appearance: alert, in no apparent distress - Head Head exam: Present: atraumatic, normocephalic - Neck Neck exam: Present: normal inspection, full ROM. Absent: tenderness, meningismus, lymphadenopathy - Extremities Exam Extremities exam: Present: normal inspection, full ROM, tenderness, normal capillary refill. Absent: joint swelling, calf tenderness - Expanded Lower Extremity Exam Left Hip exam: Present: normal inspection, full ROM. Absent: tenderness, swelling Upper Leg exam: Present: normal inspection, full ROM. Absent: tenderness, swelling Knee exam: Present: normal inspection, full ROM. Absent: tenderness, swelling Lower Leg exam: Present: normal inspection, full ROM. Absent: tenderness, swelling Ankle exam: Present: normal inspection, full ROM, tenderness, swelling, erythema. Absent: abrasion, laceration, ecchymosis, deformity, crepidus, dislocation, anterior draw sign Foot/Toe exam: Present: normal inspection, full ROM. Absent: tenderness, swelling Neuro vascular tendon exam: Present: no vascular compromise Gait: Positive: observed and limited by pain - Back Exam Back exam: Present: normal inspection, full ROM - Neurological Exam Neurological exam: Present: alert, oriented X3, normal gait - Psychiatric Psychiatric exam: Present: normal affect, normal mood - Skin Skin exam: Present: warm, dry, intact, normal color. Absent: rash ED Course Vital Signs 09/18/18 10:19 Temperature 97.4 F L Pulse Rate 88 Respiratory 16 Rate Blood Pressure 155/104 O2 Sat by Pulse 100 Oximetry - Reevaluation(s) Reevaluation #1: 09/18/18 11:10 Patient is speaking in full sentences with no signs of distress noted. ED Medical Decision Making - Medical Decision Making This is a 58-year-old male presents with gout flareup. Patient is stable and was examined by me. There is no signs of cellultiis. Patient did receive an Decadron IM in the ER. Patient is referred to Follow-up with a primary care doctor in 3-5 days or if symptoms worsen and continue return to emergency room as soon as possible. At time of discharge, the patient does not seem toxic or ill in appearance. No acute signs of distress noted. Patient agrees to discharge treatment plan of care. No further questions noted by the patient. Critical care attestation.: If time is entered above; I have spent that time in minutes in the direct care of this critically ill patient, excluding procedure time. ED Disposition Clinical Impression: Gout flare Qualifiers: Gout site: ankle Gout etiology: unspecified cause Laterality: left Qualified Code(s): M10.9 - Gout, unspecified Disposition: - TO HOME OR SELFCARE Is pt being admited?: No Does the pt Need Aspirin: No Condition: Stable Instructions: Acute Gouty Arthritis (ED), Acetaminophen/Codeine (By mouth) Additional Instructions: Follow-up with a primary care doctor in 3-5 days or if symptoms worsen and continue return to emergency room as soon as possible. Do not operate any machinery while taking Tylenol with codeine as this may cause drowsiness. Prescriptions: Prednisone [predniSONE 10 mg (6-Day Pack, 21 Tabs)] 10 mg PO .TAPER #1 tab.ds.pk Acetaminophen/Codeine [Tylenol /Codeine # 3 tab] 1 tab PO Q6H PRN #12 tab PRN Reason: Pain , Severe (7-10) Referrals: PRIMARY CARE, [Referring] - 3-5 Days TENNILLE ALEJANDRE MD [Staff Physician] - 3-5 Days [facility] [place][Note 3] [Outside] - 3-5 Days [facility] [Outside] - 3-5 Days Forms: Work/School Release Form(ED)
[2018-09-18 12:09] VITALS: BP 150/100
== END 2018-09-18 12:08 | disposition home or self-care (01) ==
LOC: ED 10:11
DX: M10.9 Gout, unspecified (principal); Z86.73 Personal history of transient ischemic attack (TIA), and cerebral infarction without residual deficits; Z79.899 Other long term (current) drug therapy; Z88.0 Allergy status to penicillin
CPT/HCPCS: 96372; 99282; J1100

== ENCOUNTER 2018-09-23 10:24 | Emergency (ER) | payer OTHER ==
[2018-09-23] MEDS ORDERED: DELTASONE PO STA (11:55)
[2018-09-23] MEDS ORDERED: PERCOCET 5/325 PO STA (11:55)
[2018-09-23] MEDS ORDERED: TORADOL IM STA (12:01)
--- NOTE | 2018-09-23 12:13 | Emergency Department Report ---
ED Extremity Problem HPI - General Chief complaint: Extremity Problem,Nontraumatic Stated complaint: L FOOT/UPPER L SIDE LEG PAIN Time Seen by Provider: 09/23/18 11:55 Source: patient Mode of arrival: Wheelchair Limitations: No Limitations - History of Present Illness Initial comments: 58-year-old Ethiop[place] female to emergency Department complaining of continued gout flareup pain. She's been taken a Medrol Dosepak at home in conjunction with Tylenol 3 reports the pain has continued. Reports no reinjury reports no fever, chills, sweats, no swelling. Pain does radiate in her ankle. She was up to to her knee. She states this is her usual gout pattern. MD Complaint: extremity pain -: Gradual Location: left, lower extremity -: Yes arthralgia Radiation: none Quality: burning, aching Consistency: constant Improves with: nothing Worsens with: nothing Associated Symptoms: arthralgias. denies: denies other symptoms, chest pain, myalgias - Related Data Home Medications Medication Instructions Recorded Confirmed Last Taken [place]-3 Fatty Acids/Fish Oil [Fish 1,000 mg PO DAILY 06/02/18 08/04/18 Unknown Oil] Previous Rx's Medication Instructions Recorded Last Taken Type Aspirin 325 mg PO DAILY #30 tablet 07/22/17 Unknown Rx Butalb/Acetaminophen/Caffeine 1 cap PO Q8HR PRN #7 cap 08/04/18 Unknown Rx [Fioricet 50-300-40 mg CAP] NIFEdipine XL [Procardia Xl] 60 mg PO QDAY 30 Days #30 tablet 09/09/18 Unknown Rx amLODIPine [Norvasc] 10 mg PO DAILY 30 Days #30 tab 09/09/18 Unknown Rx hydroCHLOROthiazide [HCTZ] 12.5 mg PO BID 30 Days #60 capsule 09/09/18 Unknown Rx Acetaminophen/Codeine [Tylenol 1 tab PO Q6H PRN #12 tab 09/18/18 Unknown Rx /Codeine # 3 tab] Prednisone [predniSONE 10 mg 10 mg PO .TAPER #1 tab.ds.pk 09/18/18 Unknown Rx (6-Day Pack, 21 Tabs)] Colchicine 0.6 mg PO Q1HR #10 capsule 09/23/18 Unknown Rx predniSONE [Deltasone] 50 mg PO QDAY #7 tab 09/23/18 Unknown Rx Allergies Allergy/AdvReac Type Severity Reaction Status Date / Time Penicillins Allergy Swelling Verified 08/04/18 09:21 ED Review of Systems ROS: Stated complaint: L FOOT/UPPER L SIDE LEG PAIN Other details as noted in HPI Comment: All other systems reviewed and negative ED Past Medical Hx - Past Medical History Hx Hypertension: Yes Hx CVA: Yes (11-05-2012) Hx Heart Attack/AMI: No Hx Congestive Heart Failure: No Hx Diabetes: No Hx Deep Vein Thrombosis: No Hx Pulmonary Embolism: No Hx Liver Disease: No Hx Renal Disease: No Hx Sickle Cell Disease: No Hx Arthritis: No Hx Seizures: No Hx Kidney Stones: No Hx Asthma: No Hx COPD: No Hx Tuberculosis: No Hx Dementia: No Hx HIV: No Additional medical history: Aneurysm brain - Surgical History Past Surgical History?: No Hx Coronary Stent: No Hx Pacemaker: No Hx Internal Defibrillator: No - Social History Smoking Status: Never Smoker Substance Use Type: None - Medications Home Medications: Home Medications Medication Instructions Recorded Confirmed Last Taken Type Aspirin 325 mg PO DAILY #30 tablet 07/22/17 08/04/18 Unknown Rx [place]-3 Fatty Acids/Fish Oil [Fish 1,000 mg PO DAILY 06/02/18 08/04/18 Unknown History Oil] Butalb/Acetaminophen/Caffeine 1 cap PO Q8HR PRN #7 cap 08/04/18 Unknown Rx [Fioricet 50-300-40 mg CAP] NIFEdipine XL [Procardia Xl] 60 mg PO QDAY 30 Days #30 tablet 09/09/18 Unknown Rx amLODIPine [Norvasc] 10 mg PO DAILY 30 Days #30 tab 09/09/18 Unknown Rx hydroCHLOROthiazide [HCTZ] 12.5 mg PO BID 30 Days #60 capsule 09/09/18 Unknown Rx Acetaminophen/Codeine [Tylenol 1 tab PO Q6H PRN #12 tab 09/18/18 Unknown Rx /Codeine # 3 tab] Prednisone [predniSONE 10 mg 10 mg PO .TAPER #1 tab.ds.pk 09/18/18 Unknown Rx (6-Day Pack, 21 Tabs)] Colchicine 0.6 mg PO Q1HR #10 capsule 09/23/18 Unknown Rx predniSONE [Deltasone] 50 mg PO QDAY #7 tab 09/23/18 Unknown Rx ED Physical Exam - General Limitations: No Limitations General appearance: alert, in no apparent distress - Head Head exam: Present: atraumatic, normocephalic - Eye Eye exam: Present: normal appearance, PERRL, EOMI Pupils: Present: normal accommodation - ENT ENT exam: Present: normal exam, mucous membranes moist, TM's normal bilaterally - Neck Neck exam: Present: normal inspection, full ROM - Respiratory Respiratory exam: Present: normal lung sounds bilaterally. Absent: respiratory distress - Cardiovascular Cardiovascular Exam: Present: regular rate, normal rhythm. Absent: systolic murmur, diastolic murmur, rubs, gallop - GI/Abdominal GI/Abdominal exam: Present: soft, normal bowel sounds - Extremities Exam Extremities exam: Present: normal inspection, tenderness, normal capillary refill, joint swelling (social swelling to the ankle joint mild warmth). Absent: pedal edema, calf tenderness (no Homans sign, no cords sign, pulses 2+12 the posterior tibialis, popliteal region and inguinal region) - Back Exam Back exam: Present: normal inspection. Absent: CVA tenderness (R), CVA tenderness (L), muscle spasm, paraspinal tenderness - Neurological Exam Neurological exam: Present: alert, oriented X3, CN II-XII intact, normal gait - Psychiatric Psychiatric exam: Present: normal affect, normal mood - Skin Skin exam: Present: warm, dry, intact, normal color. Absent: rash ED Course Vital Signs 09/23/18 10:29 Temperature 98.5 F Pulse Rate 83 Respiratory 16 Rate Blood Pressure 210/123 O2 Sat by Pulse 100 Oximetry ED Medical Decision Making - Medical Decision Making 58-year-old female with atypical gouty arthritis flareup for her not resolved by the sterile pulse pack. States she has not taken any probenecid, colchicine, or oral appearing well. Advised patient the importance of compliance with her gouty arthritis regimen and the need to follow-up with primary care for definitive management. There is no trauma. She states this is a typical flare. We'll treat her more aggressively for her typical gouty arthritis flareup Critical care attestation.: If time is entered above; I have spent that time in minutes in the direct care of this critically ill patient, excluding procedure time. ED Disposition Clinical Impression: Arthralgia Disposition: DC-01 TO HOME OR SELFCARE Is pt being admited?: No Does the pt Need Aspirin: No Condition: Stable Instructions: Acute Gouty Arthritis (ED) Additional Instructions: Please be sure to follow with your primary care provider for definitive management of your gouty arthritis. Referrals: [facility] [Provider Group] - 3-5 Days ELEUTERIO TERRELL MD [Staff Physician] - 3-5 Days [facility] [Provider Group] - 3-5 Days
[2018-09-23] MEDS ORDERED: CATAPRES PO STA (12:50)
[2018-09-23 13:39] VITALS: BP 150/96
--- NOTE | 2018-09-23 13:49 | Emergency Department Report ---
Shamika Doc - Documentation Documentation: Mrs. Canada a 58 -year-old female with hypertension. Blood pressure was eleva eugenio in the 200s over 100s upon her initial evaluation emergency Department due to her significant pain treated her pain initially. I once pain was below it for reevaluate her blood pressure still was having around 190/115. Treated her with 0.2 of clonidine which improved her blood pressure to 150s over 90s. She remained asymptomatic throughout the entire visit. States that she is on 3 different blood pressure medications which she has taken prior to her visit to the ED today. Also states he does not miss any doses. I stressed the importance for follow-up with primary care provider for reevaluation of her blood pressure medication regimen as it obviously is not managing her current degree of hypertension.
== END 2018-09-23 13:38 | disposition home or self-care (01) ==
LOC: ED 10:24
DX: M10.072 Idiopathic gout, left ankle and foot (principal); I10 Essential (primary) hypertension; Z86.73 Personal history of transient ischemic attack (TIA), and cerebral infarction without residual deficits; Z79.82 Long term (current) use of aspirin; Z79.899 Other long term (current) drug therapy
CPT/HCPCS: 96372; 99283; J1885; J7512

== ENCOUNTER 2019-10-19 10:11 | Emergency (ER) | payer SELFPAY ==
[2019-10-19] MEDS ORDERED: MORPHINE 4 MG/1 ML INJ IV ONE (10:50)
[2019-10-19] MEDS ORDERED: ONDANSETRON 4 MG/2 ML INJ IV ONE (10:51)
[2019-10-19] MEDS ORDERED: amLODIPine 5 MG TAB PO ONE (10:51)
--- NOTE | 2019-10-19 11:04 | Emergency Department Report ---
HPI - General Chief Complaint: Headache Time Seen by Provider: 10/19/19 10:33 - HPI HPI: This is a 59-year-old -[place] female presents to the emergency department with a complaint of a right-sided headache that is been going on since last night. She denies any vision change, slurred speech, numbness or paresthesias, or any neurological deficits. She has not taken anything for pain but did take something for her blood pressure this morning. She presents with extremely elevated blood pressure. She denies any nausea, vomiting, fever, chest pain, shortness of breath. She denies any tobacco or illicit drug use. No recent travel or sick contacts at home. Currently the headache is 9 out of 10 in intensity and is a throbbing sensation. 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 ED Past Medical Hx - Past Medical History Hx Hypertension: Yes Hx CVA: Yes (11-05-2012) Hx Heart Attack/AMI: No Hx Congestive Heart Failure: No Hx Diabetes: No Hx Deep Vein Thrombosis: No Hx Pulmonary Embolism: No Hx Liver Disease: No Hx Renal Disease: No Hx Sickle Cell Disease: No Hx Arthritis: No Hx Seizures: No Hx Kidney Stones: No Hx Asthma: No Hx COPD: No Hx Tuberculosis: No Hx Dementia: No Hx HIV: No Additional medical history: Aneurysm brain - Surgical History Hx Coronary Stent: No Hx Pacemaker: No Hx Internal Defibrillator: No - Social History Smoking Status: Former Smoker Substance Use Type: Alcohol - Medications Home Medications: Home Medications Medication Instructions Recorded Confirmed Last Taken Type Aspirin 325 mg PO DAILY #30 tablet 07/22/17 08/04/18 Unknown Rx [place]-3 Fatty Acids/Fish Oil [Fish 1,000 mg PO DAILY 06/02/18 08/04/18 Unknown History Oil] Butalb/Acetaminophen/Caffeine 1 cap PO Q8HR PRN #7 cap 08/04/18 Unknown Rx [Fioricet 50-300-40 mg CAP] NIFEdipine XL [Procardia Xl] 60 mg PO QDAY 30 Days #30 tablet 09/09/18 Unknown Rx amLODIPine 10 mg PO DAILY 30 Days #30 tab 09/09/18 Unknown Rx hydroCHLOROthiazide [HCTZ] 12.5 mg PO BID 30 Days #60 capsule 09/09/18 Unknown Rx Acetaminophen/Codeine [Tylenol 1 tab PO Q6H PRN #12 tab 09/18/18 Unknown Rx /Codeine # 3 tab] Prednisone [predniSONE 10 mg 10 mg PO .TAPER #1 tab.ds.pk 09/18/18 Unknown Rx (6-Day Pack, 21 Tabs)] Colchicine 0.6 mg PO Q1HR #10 capsule 09/23/18 Unknown Rx predniSONE [Deltasone] 50 mg PO QDAY #7 tab 09/23/18 Unknown Rx ED Review of Systems ROS: Stated complaint: HEADACHE RT SIDE OF HEAD Other details as noted in HPI Comment: All other systems reviewed and negative Constitutional: denies: chills, fever Eyes: denies: eye pain, vision change ENT: denies: ear pain, throat pain Respiratory: denies: cough, shortness of breath Cardiovascular: denies: chest pain, palpitations Gastrointestinal: denies: abdominal pain, vomiting Genitourinary: denies: dysuria, discharge Musculoskeletal: denies: back pain, arthralgia Skin: denies: rash, lesions Neurological: headache. denies: weakness, numbness Physical Exam - Physical Exam Vital Signs: Vital Signs 10/19/19 10:28 Temperature 98.0 F Pulse Rate 74 Respiratory 18 Rate Blood Pressure 263/135 O2 Sat by Pulse 100 Oximetry Physical Exam: GENERAL: The patient is well-developed well-nourished. HENT: Normocephalic. Atraumatic. Patient has moist mucous membranes. EYES: Extraocular motions are intact. NECK: Supple. Trachea is midline. CHEST/LUNGS: Clear to auscultation. There is no respiratory distress noted. HEART/CARDIOVASCULAR: Regular. There is no tachycardia. There is no murmur. ABDOMEN: Abdomen is soft, nontender. Patient has normal bowel sounds. SKIN: Skin is warm and dry. NEURO: The patient is awake, alert, and oriented. The patient is cooperative. The patient has no focal neurologic deficits. Normal speech. Cranial nerves II through XII grossly intact. MUSCULOSKELETAL: There is no tenderness or deformity. There is no limitation range of motion. There is no evidence of acute injury. ED Course Vital Signs 10/19/19 10:28 Temperature 98.0 F Pulse Rate 74 Respiratory 18 Rate Blood Pressure 263/135 O2 Sat by Pulse 100 Oximetry - Reevaluation(s) Reevaluation #1: 10/19/19 18:33 Lab Results 10/19/19 10/19/19 10/19/19 Range/Units Unknown Unknown Unknown WBC 5.1 (4.5-11.0) K/mm3 RBC 4.72 (3.65-5.03) M/mm3 Hgb 13.7 (10.1-14.3) gm/dl Hct 42.1 (30.3-42.9) % MCV 89 (79-97) fl MCH 29 (28-32) pg MCHC 33 (30-34) % RDW 14.1 (13.2-15.2) % Plt Count 238 (140-440) K/mm3 Lymph % (Auto) 41.6 H (13.4-35.0) % [place] % (Auto) 8.0 H (0.0-7.3) % Eos % (Auto) 2.2 (0.0-4.3) % Baso % (Auto) 0.7 (0.0-1.8) % Lymph # 2.1 (1.2-5.4) K/mm3 [place] # 0.4 (0.0-0.8) K/mm3 Eos # 0.1 (0.0-0.4) K/mm3 Baso # 0.0 (0.0-0.1) K/mm3 Seg Neutrophils % 47.5 (40.0-70.0) % Seg Neutrophils # 2.4 (1.8-7.7) K/mm3 PT 12.1 L (12.2-14.9) Sec. INR 0.88 (0.87-1.13) APTT 28.0 (24.2-36.6) Sec. Sodium 138 (137-145) mmol/L Potassium 5.0 (3.6-5.0) mmol/L Chloride 102.7 (98-107) mmol/L Carbon Dioxide 21 L (22-30) mmol/L Anion Gap 19 mmol/L BUN 14 (7-17) mg/dL Creatinine 1.0 (0.6-1.2) mg/dL Estimated GFR > 60 ml/min BUN/Creatinine Ratio 14 % Glucose 91 (65-100) mg/dL Calcium 9.4 (8.4-10.2) mg/dL ED Medical Decision Making - Lab Data Result diagrams: 10/19/19 Unknown 10/19/19 Unknown - Radiology Data Radiology results: report reviewed CT HEAD WITHOUT CONTRAST INDICATION / CLINICAL INFORMATION: Headache. TECHNIQUE: Axial imaging performed from the skull apex through the skull base without the use of contrast. Sagittal and coronal reformatted images. All CT scans at this location are performed using CT dose reduction for ALARA by means of automated exposure control. COMPARISON: 08/04/2018 FINDINGS: CEREBRAL PARENCHYMA: Moderate hypoattenuation throughout the subcortical and periventricular white matter is again seen and consistent with chronic microvascular ischemic change. 2 tiny chronic lac unar infarcts in the right thalamus measure less than 5 mm. No large chronic infarct. No acute parenchymal abnormality is appreciated. HEMORRHAGE: None. EXTRA-AXIAL SPACES: Normal in size and morphology for the patient's age. VENTRICULAR SYSTEM: Normal in size and morphology for the patient's age. MIDLINE SHIFT OR HERNIATION: None. CEREBELLUM / BRAINSTEM: No significant abnormality. CALVARIUM: No significant abnormality. ORBITS: Normal as visualized. PARANASAL SINUSES / MASTOID AIR CELLS: Normal as visualized. SOFT TISSUES of HEAD: No significant abnormality. ADDITIONAL FINDINGS: None. IMPRESSION: No acute intra cranial abnormality. Chronic findings as outlined above which are unchanged since 08/04/2018 exam. - Medical Decision Making This patient presents to the emergency department with a complaint of a right- sided headache. Otherwise she denies any vision change, slurred speech, numbness or paresthesia, or any neurological deficits. CT scan of the head without contrast did not show any bleed, shift, mass, ischemia, or any other acute process. Patient's labs have been unremarkable including CBC, metabolic panel and TSH level. The patient presents with extremely elevated blood pressure. She has a history of uncontrolled blood pressure despite alleged compliance with her medications. Patient was given multiple antihypertensive medications, both IV and p.o., and the blood pressure came down to a more reasonable level. It is still hypertension but given the starting blood pressure I would not want to drop her much more at this time. The patient has been reevaluated multiple times over multiple hours and says that she is feeling greatly improved. She says that her headache has completely resolved, 0 out of 10. Patient has been given multiple outpatient referrals for primary care physicians. She says that she has enough of her blood pressure medications and does not need a refill at this time. We discussed staying away from foods that are high in salt and caffeinated products and keeping a blood pressure log. She will return to the emergency department with any worsening of her symptoms or with any acute distress. Critical Care Time: No Critical care attestation.: If time is entered above; I have spent that time in minutes in the direct care of this critically ill patient, excluding procedure time. ED Disposition Clinical Impression: Hypertension Qualifiers: Hypertension type: essential hypertension Qualified Code(s): I10 - Essential (primary) hypertension Headache Qualifiers: Headache type: unspecified Headache chronicity pattern: unspecified pattern Intractability: not intractable Qualified Code(s): R51 - Headache Disposition: DC-01 TO HOME OR SELFCARE Is pt being admited?: No Condition: Stable Instructions: Acute Headache (ED), Hypertension (ED) Additional Instructions: Please follow-up with a primary care physician in the next few days. I am giving you a referral for a local primary care physician, Dr. Cox, and for [facility], a local clinic. I am also giving you a referral for a local neurologist, Dr. Ponce, to follow-up regarding your history of headaches. Take your blood pressure medications as prescribed. Try to stay away from foods that are high in salt and caffeinated products. Keep a blood pressure log. Referrals: PRIMARY CAREMD [Primary Care Provider] - 3-5 Days GEOVANY COX MD [Staff Physician] - 3-5 Days TERE PONCE MD [Referring] - 3-5 Days [facility] [Provider Group] - 3-5 Days Forms: Work/School Release Form(ED) Time of Disposition: 15:25
[2019-10-19 11:34] LABS: Basophils % (Auto) 0.7 % (0.0-1.8); Eosinophils # (Auto) 0.1 K/mm3 (0.0-0.4); Eosinophils % (Auto) 2.2 % (0.0-4.3); Hematocrit 42.1 % (30.3-42.9); Hemoglobin 13.7 gm/dl (10.1-14.3); Lymphocytes # (Auto) 2.1 K/mm3 (1.2-5.4); Lymphocytes % (Auto) 41.6 % (13.4-35.0); Mean Corpuscular HGB Conc 33 % (30-34); Mean Corpuscular Volume 89 fl (79-97); Monocytes # (Auto) 0.4 K/mm3 (0.0-0.8); Platelet Count 238 K/mm3 (140-440); Red Blood Count 4.72 M/mm3 (3.65-5.03); Red Cell Distribution Width 14.1 % (13.2-15.2)
[2019-10-19 11:43] LABS: INR 0.88 (0.87-1.13)
[2019-10-19 11:53] LABS: BUN/Creatinine Ratio 14; Blood Urea Nitrogen 14 mg/dL (7-17); Calcium 9.4 mg/dL (8.4-10.2); Hemolysis Index 242
--- NOTE | 2019-10-19 12:07 | Cat Scan Report ---
CT HEAD WITHOUT CONTRAST INDICATION / CLINICAL INFORMATION: Headache. TECHNIQUE: Axial imaging performed from the skull apex through the skull base without the use of cont rast. Sagittal and coronal reformatted images. All CT scans at this location are performed using CT dose reduction for ALARA by means of automated exposure control. COMPARISON: 08/04/2018 FINDINGS: CEREBRAL PARENCHYMA: Moderate hypoattenuation throughout the subcortical and periventricular white ma tter is again seen and consistent with chronic microvascular ischemic change. 2 tiny chronic lacunar infarcts in the right thalamus measure less than 5 mm. No large chronic infarct. No acute parenchymal abnormality is appreciated. HEMORRHAGE: None. EXTRA-AXIAL SPACES: Normal in size and morphology for the patient's age. VENTRICULAR SYSTEM: Normal in size and morphology for the patient's age. MIDLINE SHIFT OR HERNIATION: None. CEREBELLUM / BRAINSTEM: No significant abnormality. CALVARIUM: No significant abnormality. ORBITS: Normal as visualized. PARANASAL SINUSES / MASTOID AIR CELLS: Normal as visualized. SOFT TISSUES of HEAD: No significant abnormality. ADDITIONAL FINDINGS: None. IMPRESSION: No acute intracranial abnormality. Chronic findings as outlined above which are unchanged since 2018 exam. Signer Name: Armand Dominguez Jr, MD Signed: 10/19/2019 12:02 PM Workstation Name: [id number]
[2019-10-19] MEDS ORDERED: cloNIDine 0.2 MG TAB PO ONE (12:17)
[2019-10-19] MEDS ORDERED: ENALAPRILAT 2.5 MG/2 ML INJ IV ONE ×2 (13:30→14:03)
[2019-10-19] MEDS ORDERED: MORPHINE 2 MG/1 ML INJ IV ONE (14:03)
[2019-10-19] MEDS ORDERED: hydrALAZINE 25 MG TAB PO ONE (14:47)
[2019-10-19 16:31] VITALS: BP 189/109
== END 2019-10-19 15:55 | disposition home or self-care (01) ==
LOC: ED 10:11
DX: I10 Essential (primary) hypertension (principal); Z88.0 Allergy status to penicillin; Z86.73 Personal history of transient ischemic attack (TIA), and cerebral infarction without residual deficits; Z87.891 Personal history of nicotine dependence
CPT/HCPCS: 36415; 70450; 80048; 85025; 85610; 85730; 96374; 96375; 96376; 99284; J2270; J2405

== ENCOUNTER 2019-10-24 11:32 | Observation (INO) | payer OTHER ==
[2019-10-24] MEDS ORDERED: NITROGLYCERIN 0.4 MG TAB SUBL SL ONE ×2 (12:02→12:03)
[2019-10-24] MEDS ORDERED: ASPIRIN 81 MG TAB CHEW PO ONE (12:03)
[2019-10-24] MEDS ORDERED: MORPHINE 4 MG/1 ML INJ IV ONE (12:03)
--- NOTE | 2019-10-24 12:08 | Emergency Department Report ---
ED Chest Pain HPI - General Chief Complaint: Chest Pain Stated Complaint: CHEST PAIN Time Seen by Provider: 10/24/19 11:57 Source: patient, EMS Mode of arrival: Stretcher Limitations: No Limitations - History of Present Illness Initial Comments: This is a 59-year-old female presents to the emergency department with a complaint of some midsternal to left-sided chest pain that started while she was walking to work late this morning. Patient presents with extremely elevated blood pressure. I saw this patient about 1 week ago with uncontrolled blood p ressure and a headache at that time. She has a past medical history of a brain aneurysm, hypertension, hyperlipidemia. She denies any tobacco or illicit drug use. The patient says that she is just on metoprolol 25 mg twice daily for her blood pressure and that she takes it compliantly. She was previously on 2 other blood pressure medications but says she was taken off of them by her primary ca re provider. No recent travel or sick contacts at home. She denies any fever, nausea, vomiting, diaphoresis, back pain, shortness of breath. - Related Data Home Medications Medication Instructions Recorded Confirmed Last Taken [place]-3 Fatty Acids/Fish Oil [Fish 1,000 mg PO DAILY 06/02/18 08/04/18 Unknown Oil] Previous Rx's Medication Instructions Recorded Last Taken Type Aspirin 325 mg PO DAILY #30 tablet 07/22/17 Unknown Rx Butalb/Acetaminophen/Caffeine 1 cap PO Q8HR PRN #7 cap 08/04/18 Unknown Rx [Fioricet 50-300-40 mg CAP] NIFEdipine XL [Procardia Xl] 60 mg PO QDAY 30 Days #30 tablet 09/09/18 Unknown Rx amLODIPine 10 mg PO DAILY 30 Days #30 tab 09/09/18 Unknown Rx hydroCHLOROthiazide [HCTZ] 12.5 mg PO BID 30 Days #60 capsule 09/09/18 Unknown Rx Acetaminophen/Codeine [Tylenol 1 tab PO Q6H PRN #12 tab 09/18/18 Unknown Rx /Codeine # 3 tab] Prednisone [predniSONE 10 mg 10 mg PO .TAPER #1 tab.ds.pk 09/18/18 Unknown Rx (6-Day Pack, 21 Tabs)] Colchicine 0.6 mg PO Q1HR #10 capsule 09/23/18 Unknown Rx predniSONE [Deltasone] 50 mg PO QDAY #7 tab 09/23/18 Unknown Rx Allergies Allergy/AdvReac Type Severity Reaction Status Date / Time Penicillins Allergy Swelling Verified 08/04/18 09:21 Heart Score - HEART Score History: Slightly suspicious EKG: Normal Age: 45-65 Risk factors: 1-2 risk factors Troponin: < normal limit HEART Score: 2 - Critical Actions Critical Actions: 0-3 pts:0.9-1.7%risk of adverse cardiac event.Candidate for discharge ED Review of Systems ROS: Stated complaint: CHEST PAIN Other details as noted in HPI Comment: All other systems reviewed and negative Constitutional: denies: chills, fever Eyes: denies: eye pain, vision change ENT: denies: ear pain, throat pain Respiratory: denies: cough, shortness of breath Cardiovascular: chest pain. denies: palpitations Gastrointestinal: denies: abdominal pain, vomiting Genitourinary: denies: dysuria, discharge Musculoskeletal: denies: back pain, arthralgia Skin: denies: rash, lesions Neurological: denies: weakness, numbness ED Past Medical Hx - Past Medical History Previous Medical History?: Yes Hx Hypertension: Yes Hx CVA: Yes (11-05-2012) Hx Heart Attack/AMI: No Hx Congestive Heart Failure: No Hx Diabetes: No Hx Deep Vein Thrombosis: No Hx Pulmonary Embolism: No Hx Liver Disease: No Hx Renal Disease: No Hx Sickle Cell Disease: No Hx Arthritis: No Hx Seizures: No Hx Kidney Stones: No Hx Asthma: No Hx COPD: No Hx Tuberculosis: No Hx Dementia: No Hx HIV: No Additional medical history: Aneurysm brain - Surgical History Past Surgical History?: Yes Hx Coronary Stent: No Hx Pacemaker: No Hx Internal Defibrillator: No - Social History Smoking Status: Never Smoker Substance Use Type: None - Medications Home Medications: Home Medications Medication Instructions Recorded Confirmed Last Taken Type Aspirin 325 mg PO DAILY #30 tablet 07/22/17 08/04/18 Unknown Rx [place]-3 Fatty Acids/Fish Oil [Fish 1,000 mg PO DAILY 06/02/18 08/04/18 Unknown History Oil] Butalb/Acetaminophen/Caffeine 1 cap PO Q8HR PRN #7 cap 08/04/18 Unknown Rx [Fioricet 50-300-40 mg CAP] NIFEdipine XL [Procardia Xl] 60 mg PO QDAY 30 Days #30 tablet 09/09/18 Unknown Rx amLODIPine 10 mg PO DAILY 30 Days #30 tab 09/09/18 Unknown Rx hydroCHLOROthiazide [HCTZ] 12.5 mg PO BID 30 Days #60 capsule 09/09/18 Unknown Rx Acetaminophen/Codeine [Tylenol 1 tab PO Q6H PRN #12 tab 09/18/18 Unknown Rx /Codeine # 3 tab] Prednisone [predniSONE 10 mg 10 mg PO .TAPER #1 tab.ds.pk 09/18/18 Unknown Rx (6-Day Pack, 21 Tabs)] Colchicine 0.6 mg PO Q1HR #10 capsule 09/23/18 Unknown Rx predniSONE [Deltasone] 50 mg PO QDAY #7 tab 09/23/18 Unknown Rx ED Physical Exam - General Limitations: No Limitations - Other Other exam information: GENERAL: The patient is well-developed well-nourished. HENT: Normocephalic. Atraumatic. Patient has moist mucous membranes. EYES: Extraocular motions are intact. NECK: Supple. Trachea is midline. CHEST/LUNGS: Clear to auscultation. There is no respiratory distress noted. Chest pain is not reproducible to palpation of the chest wall. HEART/CARDIOVASCULAR: Regular. There is no tachycardia. There is no murmur. ABDOMEN: Abdomen is soft, nontender. Patient has normal bowel sounds. SKIN: Skin is warm and dry. NEURO: The patient is awake, alert, and oriented. The patient is cooperative. The patient has no focal neurologic deficits. Normal speech. MUSCULOSKELETAL: There is no tenderness or deformity. There is no evidence of acute injury. ED Course Vital Signs 10/24/19 10/24/19 10/24/19 11:59 12:16 13:33 Temperature 98.1 F Pulse Rate 62 62 Respiratory 18 Rate Blood Pressure 237/127 237/127 199/108 O2 Sat by Pulse 100 Oximetry MELLO score - Mello Score Age > 65: (0) No Aspirin use within the Past 7 Days: (0) No 3 or more CAD Risk Factors: (0) No 2 or more Angina events in past 24 hrs: (1) Yes Known CAD with more than 50% Stenosis: (0) No Elevated Cardiac Markers: (0) No ST Deviation Greater than 0.5mm: (0) No MELLO Score: 1 ED Medical Decision Making - Lab Data Result diagrams: 10/24/19 12:13 10/24/19 12:13 - EKG Data -: EKG Interpreted by Me EKG shows normal: sinus rhythm, axis, intervals, QRS complexes (LVH), ST-T waves Rate: normal - EKG Data When compared to previous EKG there are: no significant change Interpretation: unchanged when compared t (06/02/18), LVH - Radiology Data Radiology results: image reviewed interpreted by me: Chest x-ray does not show any acute process. There are no pleural effusions, obvious pneumonia and there is no pneumothorax. No significant cardiomegaly. - Medical Decision Making This patient presents to the emergency department with the complaint of acute chest pain that started while walking to work. She presents with extremely elevated blood pressure. Patient was given some sublingual nitroglycerin and antihypertensive medication. She was also given IV analgesia. EKG shows LVH but no morphology consistent with ST elevation NM. Chest x-ray does not show any acute process. Patient will be admitted to the hospital for further evaluation and treatment and was accepted for admission by the hospitalist. Critical Care Time: No Critical care attestation.: If time is entered above; I have spent that time in minutes in the direct care of this critically ill patient, excluding procedure time. ED Disposition Clinical Impression: Hypertensive crisis, Acute chest pain Disposition: DC-09 OP ADMIT IP TO THIS HOSP Is pt being admited?: Yes Condition: Stable Time of Disposition: 13:23
[2019-10-24] MEDS ORDERED: ONDANSETRON 4 MG/2 ML INJ IV ONE (12:37)
--- NOTE | 2019-10-24 12:38 | XRay Report ---
CHEST 1 VIEW INDICATION: Chest pain. COMPARISON: 06/02/2018 FINDINGS: Support devices: None. Heart: Within normal limits. Lungs/Pleura: No acute air space or interstitial disease. Additional findings: None. IMPRESSION: No acute findings. Signer Name: Armand Dominguez Jr, MD Signed: 10/24/2019 12:33 PM Workstation Name: [id number]
[2019-10-24 12:50] LABS: Basophils % (Auto) 0.6 % (0.0-1.8); Eosinophils # (Auto) 0.1 K/mm3 (0.0-0.4); Eosinophils % (Auto) 2.5 % (0.0-4.3); Hematocrit 42.6 % (30.3-42.9); Hemoglobin 13.9 gm/dl (10.1-14.3); Lymphocytes # (Auto) 2.3 K/mm3 (1.2-5.4); Lymphocytes % (Auto) 38.5 % (13.4-35.0); Mean Corpuscular HGB Conc 33 % (30-34); Mean Corpuscular Volume 90 fl (79-97); Monocytes # (Auto) 0.6 K/mm3 (0.0-0.8); Monocytes % (Auto) 9.6 % (0.0-7.3); Platelet Count 240 K/mm3 (140-440); Red Blood Count 4.75 M/mm3 (3.65-5.03); Red Cell Distribution Width 14.2 % (13.2-15.2)
[2019-10-24 12:57] LABS: INR 0.88 (0.87-1.13)
[2019-10-24 13:07] LABS: BUN/Creatinine Ratio 18; Blood Urea Nitrogen 22 mg/dL (7-17); Calcium 9.4 mg/dL (8.4-10.2); Hemolysis Index 84
[2019-10-24] MEDS ORDERED: cloNIDine 0.2 MG TAB PO ONE (13:19)
[2019-10-24] MEDS ORDERED: NON-FORMULARY EACH (Butalb/Acetaminophen/Caffeine [Fioricet 50-300-40 Mg Cap] 1 CAP) PO PRN (14:51)
[2019-10-24] MEDS ORDERED: MORPHINE 2 MG/1 ML INJ IV PRN (14:52)
[2019-10-24] MEDS ORDERED: METOCLOPRAMIDE 10 MG/2 ML INJ IV PRN (14:52)
[2019-10-24] MEDS ORDERED: HYDROmorphone 1 MG/1 ML INJ IV PRN (14:52)
[2019-10-24] MEDS ORDERED: ONDANSETRON 4 MG/2 ML INJ IV PRN (14:52)
[2019-10-24] MEDS ORDERED: BUTALB/ACETAMINOPHEN/CAFFEINE TAB PO PRN ×2 (15:17→16:00)
[2019-10-24] MEDS: VALSARTAN 160MG TAB PO SCH ×2 (15:21→21:30)
[2019-10-24] MEDS: ASPIRIN 325 MG TAB PO SCH (15:22)
[2019-10-24] MEDS ORDERED: VALSARTAN 160MG TAB ONE (15:25)
[2019-10-24] MEDS ORDERED: ACETAMINOPHEN W/CODEINE 300-30 MG TAB PO PRN (16:00)
[2019-10-24] MEDS ORDERED: ACETAMINOPHEN 325 MG TAB PO PRN (16:00)
[2019-10-24] MEDS ORDERED: hydrALAZINE 25 MG TAB ONE ×2 (16:01→16:04)
[2019-10-24] MEDS: hydrALAZINE 25 MG TAB PO SCH (16:04)
[2019-10-24] MEDS: NIFEdipine XL 60 MG TAB PO SCH (16:29)
[2019-10-24] MEDS ORDERED: cloNIDine 0.2 MG TAB PO PRN (17:00)
[2019-10-24] MEDS: FAMOTIDINE 20 MG TAB PO SCH (21:31)
[2019-10-25] MEDS: hydrALAZINE 25 MG TAB PO SCH ×2 (04:34→05:05)
--- NOTE | 2019-10-25 06:46 | History and Physical Report ---
History of Present Illness Date of examination: 10/24/19 Date of admission: 10/24/19 13:23 Chief complaint: Check chest pain since a.m. History of present illness: 59-year-old -[place]oven[place] female with history of hypertension--noncompliant comes in for chest pain since morning associated with walking. Patient was seen in the emergency room for uncontrolled blood pressure. Patient was given new prescriptions. Patient is only on 1 antihypertensive--metoprolol. On the patient's list he says that patient is on amlodipine and nifedipine which she denies. Patient says that she was on 3 antihypertensives 1 year ago but her PCP change it to 1 medication. Patient also has past medical history of brain aneurysm and hyperlipidemia. Does not smoke. No recent travel. No exposure to coronavirus. Chest pain is retrosternal about 5 on a scale of 1-10 associated with walking. Also has a mild headache which she attributes to the high blood pressure. In the emergency room her blood pressure was very high around 230/130. - Past Medical History Previous Medical History?: Yes Hx Hypertension: Yes Hx CVA: Yes (11-05-2012) Additional medical history: Aneurysm brain - Surgical History Past Surgical History?: Yes Hx Coronary Stent: No Hx Pacemaker: No Hx Internal Defibrillator: No - Social History Smoking Status: Never Smoker Substance Use Type: None - Medications Home Medications: Home Medications Medication Instructions Recorded Confirmed Last Taken Type Aspirin 325 mg PO DAILY #30 tablet 07/22/17 08/04/18 Unknown Rx [place]-3 Fatty Acids/Fish Oil [Fish 1,000 mg PO DAILY 06/02/18 08/04/18 Unknown History Oil] Butalb/Acetaminophen/Caffeine 1 cap PO Q8HR PRN #7 cap 08/04/18 Unknown Rx [Fioricet 50-300-40 mg CAP] NIFEdipine XL [Procardia Xl] 60 mg PO QDAY 30 Days #30 tablet 09/09/18 Unknown Rx amLODIPine 10 mg PO DAILY 30 Days #30 tab 09/09/18 Unknown Rx hydroCHLOROthiazide [HCTZ] 12.5 mg PO BID 30 Days #60 capsule 09/09/18 Unknown Rx Acetaminophen/Codeine [Tylenol 1 tab PO Q6H PRN #12 tab 09/18/18 Unknown Rx /Codeine # 3 tab] Prednisone [predniSONE 10 mg 10 mg PO .TAPER #1 tab.ds.pk 09/18/18 Unknown Rx (6-Day Pack, 21 Tabs)] Colchicine 0.6 mg PO Q1HR #10 capsule 09/23/18 Unknown Rx predniSONE [Deltasone] 50 mg PO QDAY #7 tab 09/23/18 Unknown Rx Review of Systems ROS: Stated complaint: CHEST PAIN Other details as noted in HPI Comment: All other systems reviewed and negative Constitutional: denies: chills, fever Eyes: denies: eye pain, vision change ENT: denies: ear pain, throat pain Respiratory: denies: cough, shortness of breath Cardiovascular: chest pain. denies: palpitations Gastrointestinal: denies: abdominal pain, vomiting Genitourinary: denies: dysuria, discharge Musculoskeletal: denies: back pain, arthralgia Skin: denies: rash, lesions Neurological: denies: weakness, numbness Medications and Allergies Allergies Allergy/AdvReac Type Severity Reaction Status Date / Time Penicillins Allergy Swelling Verified 08/04/18 09:21 Home Medications Medication Instructions Recorded Confirmed Last Taken Type Aspirin 325 mg PO DAILY #30 tablet 07/22/17 10/24/19 Unknown Rx Metoprolol [Lopressor] 25 mg PO BID 10/24/19 10/24/19 1 Day Ago History ~10/23/19 Active Meds: Active Medications Acetaminophen (Tylenol) 650 mg PO Q4H PRN PRN Reason: Pain MILD(1-3)/Fever >100.5 Last Admin: 10/25/19 05:05 Dose: 650 mg Documented by: Acetaminophen/Butalbital/Caffeine (Fioricet) 1 tab PO Q8H PRN PRN Reason: Headache Aspirin (Aspirin) 325 mg PO DAILY [facility] Last Admin: 10/24/19 15:22 Dose: Not Given Documented by: Clonidine HCl (Catapres) 0.2 mg PO Q4H PRN PRN Reason: Blood Pressure Last Admin: 10/24/19 17:15 Dose: 0.2 mg Documented by: Famotidine (Pepcid) 20 mg PO BID [facility] Last Admin: 10/24/19 21:31 Dose: 20 mg Documented by: Hydralazine HCl (Apresoline) 50 mg PO Q8HR [facility] Last Admin: 10/25/19 05:05 Dose: 50 mg Documented by: Hydromorphone HCl (Dilaudid) 0.5 mg IV Q3H PRN PRN Reason: Pain , Severe (7-10) Metoclopramide HCl (Reglan) 10 mg IV Q6H PRN PRN Reason: Nausea And Vomiting Morphine Sulfate (Morphine) 2 mg IV Q4H PRN PRN Reason: Pain, Moderate (4-6) Nifedipine (Procardia Xl) 60 mg PO QDAY [facility] Last Admin: 10/24/19 16:29 Dose: 60 mg Documented by: Ondansetron HCl (Zofran) 4 mg IV Q8H PRN PRN Reason: Nausea And Vomiting Sodium Chloride (Sodium Chloride Flush Syringe 10 Ml) 10 ml IV BID [facility] Last Admin: 10/24/19 21:31 Dose: 10 ml Documented by: Sodium Chloride (Sodium Chloride Flush Syringe 10 Ml) 10 ml IV PRN PRN PRN Reason: LINE FLUSH Valsartan (Diovan) 160 mg PO Q12HR [facility] Last Admin: 10/24/19 21:30 Dose: 160 mg Documented by: Exam - Constitutional Vitals: Temp Pulse Resp BP Pulse Ox 97.8 F 58 L 16 120/74 98 10/25/19 03:53 10/25/19 05:05 10/25/19 03:53 10/25/19 05:05 10/25/19 03:53 General appearance: Present: mild distress, well-nourished - EENT Eyes: Present: PERRL ENT: hearing intact, clear oral mucosa - Neck Neck: Present: supple, normal ROM - Respiratory Respiratory effort: normal Respiratory: bilateral: CTA - Cardiovascular Heart rate: 70 Rhythm: regular Heart Sounds: Present: S1 & S2. Absent: rub, click - Extremities Extremities: no ischemia, pulses intact, pulses symmetrical, No edema Peripheral Pulses: within normal limits - Abdominal General gastrointestinal: Present: soft, non-tender, non-distended, normal bowel sounds Female genitourinary: Present: normal - Rectal Rectal Exam: deferred - Integumentary Integumentary: Present: clear, warm, dry - Musculoskeletal Musculoskeletal: gait normal, strength equal bilaterally - Psychiatric Psychiatric: appropriate mood/affect, intact judgment & insight - Neurologic Neurologic: CNII-XII intact, moves all extremities - Allied Health Allied health notes reviewed: nursing, case management HEART Score - HEART Score History: Slightly suspicious EKG: Normal Age: 45-65 Risk factors: 1-2 risk factors Troponin: Troponin T < 0.010 ng/mL (0.00-0.029) 10/24/19 22:27 Troponin: < normal limit HEART Score: 2 - Critical Actions Critical Actions: 0-3 pts:0.9-1.7%risk of adverse cardiac event.Candidate for discharge Results - Labs CBC & Chem 7: 10/24/19 12:13 10/24/19 12:13 Labs: Laboratory Last Values WBC 5.9 K/mm3 (4.5-11.0) 10/24/19 12:13 RBC 4.75 M/mm3 (3.65-5.03) 10/24/19 12:13 Hgb 13.9 gm/dl (10.1-14.3) 10/24/19 12:13 Hct 42.6 % (30.3-42.9) 10/24/19 12:13 MCV 90 fl (79-97) 10/24/19 12:13 MCH 29 pg (28-32) 10/24/19 12:13 MCHC 33 % (30-34) 10/24/19 12:13 RDW 14.2 % (13.2-15.2) 10/24/19 12:13 Plt Count 240 K/mm3 (140-440) 10/24/19 12:13 Lymph % (Auto) 38.5 % (13.4-35.0) H 10/24/19 12:13 [place] % (Auto) 9.6 % (0.0-7.3) H 10/24/19 12:13 Eos % (Auto) 2.5 % (0.0-4.3) 10/24/19 12:13 Baso % (Auto) 0.6 % (0.0-1.8) 10/24/19 12:13 Lymph # 2.3 K/mm3 (1.2-5.4) 10/24/19 12:13 [place] # 0.6 K/mm3 (0.0-0.8) 10/24/19 12:13 Eos # 0.1 K/mm3 (0.0-0.4) 10/24/19 12:13 Baso # 0.0 K/mm3 (0.0-0.1) 10/24/19 12:13 Seg Neutrophils % 48.8 % (40.0-70.0) 10/24/19 12:13 Seg Neutrophils # 2.9 K/mm3 (1.8-7.7) 10/24/19 12:13 PT 12.1 Sec. (12.2-14.9) L 10/24/19 12:13 INR 0.88 (0.87-1.13) 10/24/19 12:13 Sodium 142 mmol/L (137-145) 10/24/19 12:13 Potassium 4.7 mmol/L (3.6-5.0) 10/24/19 12:13 Chloride 105.2 mmol/L (98-107) 10/24/19 12:13 Carbon Dioxide 21 mmol/L (22-30) L 10/24/19 12:13 Anion Gap 21 mmol/L 10/24/19 12:13 BUN 22 mg/dL (7-17) H 10/24/19 12:13 Creatinine 1.2 mg/dL (0.6-1.2) 10/24/19 12:13 Estimated GFR 56 ml/min 10/24/19 12:13 BUN/Creatinine Ratio 18 % 10/24/19 12:13 Glucose 85 mg/dL (65-100) 10/24/19 12:13 Hemoglobin A1c 5.5 % (4-6) 10/25/19 04:48 Calcium 9.4 mg/dL (8.4-10.2) 10/24/19 12:13 Troponin T < 0.010 ng/mL (0.00-0.029) 10/24/19 22:27 Short CBC 10/24/19 Range/Units 12:13 WBC 5.9 (4.5-11.0) K/mm3 Hgb 13.9 (10.1-14.3) gm/dl Hct 42.6 (30.3-42.9) % Plt Count 240 (140-440) K/mm3 BMP 10/24/19 12:13 Sodium 142 Potassium 4.7 Chloride 105.2 Carbon Dioxide 21 L BUN 22 H Creatinine 1.2 Glucose 85 Calcium 9.4 Cardiac Enzymes 10/24/19 10/24/19 10/24/19 Range/Units 12:13 15:11 16:59 Troponin T < 0.010 < 0.010 < 0.010 (0.00-0.029) ng/mL 10/24/19 Range/Units 22:27 Troponin T < 0.010 (0.00-0.029) ng/mL - Imaging and Cardiology EKG: report reviewed (Sinus rhythm, LVH pattern) Chest x-ray: report reviewed (No acute findings) Loaiza/IV: Voiding Method Toilet IV Catheter Type [Right Wrist] Peripheral IV Assessment and Plan Advance Directives: Yes (Full code) VTE prophylaxis?: Chemical Plan of care discussed with patient/family: Yes - Patient Problems (1) Hypertensive emergency Current Visit: Yes Status: Acute Plan to address problem: Patient is started on Procardia XL 60 mg, valsartan 160 every 12 and hydralazine 50 mg every 8. Hydralazine IV is not available Clonidine 0.2 every 4 to be given as a PRN for blood pressure more than 160/100 If blood pressure is controlled by tomorrow patient can be discharged on valsartan Procardia XL and hydralazine. (2) Acute chest pain Current Visit: Yes Status: Acute Plan to address problem: Chest pain work-up Serial troponins Lexiscan in the morning (3) DVT prophylaxis Current Visit: Yes Status: Acute Plan to address problem: On heparin 5000 every 12 (4) Discharge planning issues Current Visit: Yes Status: Acute Plan to address problem: Patient is in observation status If blood pressure is controlled and Lexiscan is normal patient may be discharged tomorrow
[2019-10-25 06:55] LABS: Albumin 3.8 g/dL (3.9-5); Calcium 9.4 mg/dL (8.4-10.2)
[2019-10-25 07:59] VITALS: BP 130/85
[2019-10-25] MEDS ORDERED: REGADENOSON 0.4 MG/5 ML INJ IV ONE ×2 (08:42→08:45)
--- NOTE | 2019-10-25 10:32 | Discharge Summary ---
Providers - Providers Date of Admission: 10/24/19 13:23 Date of discharge: 10/25/19 Attending physician: CATY SULLIVAN MD Primary care physician: HORSEBACK EXCAVATOR Hospitalization Reason for admission: Hypertensive emergency, chest pain Condition: Stable Pertinent studies: Chest x-ray and EKG Hospital course: 59-year-old -Indian female with history of hypertension--noncompliant comes in for chest pain since morning associated with walking. Patient was seen in the emergency room for uncontrolled blood pressure. Patient was given new prescriptions. Patient is only on 1 antihypertensive--metoprolol. On the patient's list he says that patient is on amlodipine and nifedipine which she denies. Patient says that she was on 3 antihypertensives 1 year ago but her PCP change it to 1 medication. Patient also has past medical history of brain aneurysm and hyperlipidemia. Does not smoke. No recent travel. No exposure to coronavirus. Chest pain is retrosternal about 5 on a scale of 1-10 associated with walking. Also has a mild headache which she attributes to the high blood pressure. In the emergency room her blood pressure was very high around 230/130. Patient was admitted to the floor and was placed on BP medications and blood pressure was controlled. Chest pain resolved. Serial troponins were negative. Cardiac stress test was ordered by his admitting physician and discussed with Dr. Pop. Patient's stress test canceled because chest pain is likely due to uncontrolled hypertension and chest pain resolved after blood pressure is controlled, I agree with canceling of the stress test.. Patient can follow with [facility] as an outpatient. Patient was hemodynamically stable at the time of discharge. I have adjusted her home medications and give a prescription at the time of discharge. Disposition: TO HOME OR SELFCARE Time spent for discharge: 31 minuutes - Discharge Diagnoses (1) Hyperlipidemia Status: Chronic Qualifiers: Hyperlipidemia type: moderate mixed hyperlipidemia not requiring statin therapy Qualified Code(s): E78.2 - Mixed hyperlipidemia (2) Acute chest pain Status: Acute (3) Hypertensive emergency Status: Acute Core Measure Documentation - Palliative Care Palliative Care/ Comfort Measures: Not Applicable - Core Measures Any of the following diagnoses?: none Exam - Physical Exam Narrative exam: Not in cardiopulmonary distress. The patient appeared well nourished and normally developed. Vital signs as documented. Head exam is unremarkable. No scleral icterus . Neck is without jugular venous distension, thyromegaly, or carotid bruits. Lungs are clear to auscultation. Cardiac exam reveals regular rate and Rhythm. Abdominal exam reveals normal bowel sounds, nontender, no organomegaly. Extremities are nonedematous and both femoral and pedal pulses are normal. AMMONIA BOX OPERATOR: Alert and oriented 3. No focal weakness. - Constitutional Vitals: Temp Pulse Resp BP Pulse Ox 98.3 F 70 18 130/85 96 10/25/19 07:49 10/25/19 07:49 10/25/19 07:49 10/25/19 07:49 10/25/19 07:49 Plan Activity: no restrictions Weight Bearing Status: Full Weight Bearing Diet: low salt Follow up with: PRIMARY MD DEVIN [Primary Care Provider] - 7 Days BANDAR POP MD [Staff Physician] - 14 Days Prescriptions: hydrALAZINE [Apresoline TAB] 50 mg PO Q8HR #90 tablet Valsartan [Diovan] 160 mg PO Q12HR #60 tablet NIFEdipine XL [Procardia Xl] 60 mg PO QDAY #30 tablet
[2019-10-25] MEDS: VALSARTAN 160MG TAB PO SCH (10:58)
[2019-10-25] MEDS: NIFEdipine XL 60 MG TAB PO SCH (10:59)
[2019-10-25] MEDS: ASPIRIN 325 MG TAB PO SCH (10:59)
[2019-10-25] MEDS: FAMOTIDINE 20 MG TAB PO SCH (10:59)
== END 2019-10-25 14:02 | disposition home or self-care (01) ==
LOC: ED 11:32 → 4A 13:23
PROVIDERS: ADMIT Internal Medicine; ATTEND Internal Medicine
DX: R07.89 Other chest pain (principal); I16.1 Hypertensive emergency; E78.2 Mixed hyperlipidemia; I10 Essential (primary) hypertension; I67.1 Cerebral aneurysm, nonruptured; Z86.73 Personal history of transient ischemic attack (TIA), and cerebral infarction without residual deficits; Z79.82 Long term (current) use of aspirin; Z79.899 Other long term (current) drug therapy; Z88.0 Allergy status to penicillin
CPT/HCPCS: 36415; 71045; 80048; 80053; 83036; 84484; 85025; 85610; 93005; 96374; 96375; 99285; G0378; J2270; J2405; J2785

== ENCOUNTER 2019-12-08 09:09 | Emergency (ER) | payer OTHER ==
[2019-12-08] MEDS ORDERED: ASPIRIN 325 MG TAB PO ONE (09:16)
--- NOTE | 2019-12-08 10:05 | XRay Report ---
CHEST 2 VIEWS INDICATION: Chest Pain. COMPARISON: 10/24/2019 FINDINGS: Support devices: None. Heart: Within normal limits. Lungs: No acute air space or interstitial disease. Pleura: No significant pleural effusion. No pneumothorax. Additional findings: None. IMPRESSION: 1. No acute findings. Signer Name: Damion Guan MD Signed: 12/08/2019 10:01 AM Workstation Name: [id number]
[2019-12-08 10:19] LABS: Basophils % (Auto) 0.4 % (0.0-1.8); Eosinophils # (Auto) 0.2 K/mm3 (0.0-0.4); Hematocrit 41.4 % (30.3-42.9); Hemoglobin 13.7 gm/dl (10.1-14.3); Lymphocytes # (Auto) 2.2 K/mm3 (1.2-5.4); Lymphocytes % (Auto) 37.8 % (13.4-35.0); Mean Corpuscular HGB Conc 33 % (30-34); Mean Corpuscular Volume 87 fl (79-97); Monocytes # (Auto) 0.6 K/mm3 (0.0-0.8); Monocytes % (Auto) 10.4 % (0.0-7.3); Platelet Count 267 K/mm3 (140-440); Red Blood Count 4.76 M/mm3 (3.65-5.03); Red Cell Distribution Width 13.9 % (13.2-15.2)
[2019-12-08 10:52] LABS: BUN/Creatinine Ratio 17; Blood Urea Nitrogen 19 mg/dL (7-17); Hemolysis Index 4
[2019-12-08] MEDS ORDERED: KETOROLAC 30 MG/1 ML INJ IV ONE (11:10)
--- NOTE | 2019-12-08 11:17 | Emergency Department Report ---
ED Chest Pain HPI - General Chief Complaint: Chest Pain Stated Complaint: CP/CONGESTION Time Seen by Provider: 12/08/19 10:53 Source: patient Mode of arrival: Ambulatory Limitations: No Limitations - History of Present Illness Initial Comments: This is a 59-year-old female who presents to the emergency department with a complaint of a mild generalized headache, nasal congestion, midsternal chest discomfort that is been going on for the past 2 days. No known aggravating or alleviating factors. She has not taken anything for symptoms prior to presen tation. Patient presents with very elevated blood pressure despite compliance with her blood pressure medications, nifedipine, valsartan and hydralazine. She denies any tobacco or illicit drug use. She does not have a primary care physician. Patient was admitted to the hospital last month for uncontrolled blood pressure and some chest discomfort at that time. She had a stress test initially scheduled but it was canceled after the blood pressure was controlled and the patient's chest discomfort resolved. She was discharged to follow-up with [facility] cardiology but never did. She denies any recent travel or sick contacts at home. She denies any fever, back pain, shortness of breath, lower extremity swelling, cough, nausea, vomiting or diaphoresis. Severity scale (0 -10): 10 - Related Data Home Medications Medication Instructions Recorded Confirmed Last Taken NIFEdipine [Nifedipine ER] 60 mg PO DAILY 12/08/19 12/08/19 12/08/19 Previous Rx's Medication Instructions Recorded Last Taken Type Aspirin 325 mg PO DAILY #30 tablet 07/22/17 12/08/19 Rx Valsartan [Diovan] 160 mg PO Q12HR #60 tablet 10/25/19 12/08/19 Rx hydrALAZINE [Apresoline TAB] 50 mg PO Q8HR #90 tablet 10/25/19 12/08/19 Rx Fluticasone [Flonase] 1 spray NS QDAY #1 bottle 12/08/19 Unknown Rx Allergies Allergy/AdvReac Type Severity Reaction Status Date / Time Penicillins Allergy Swelling Verified 08/04/18 09:21 Heart Score - HEART Score History: Slightly suspicious EKG: Normal Age: 45-65 Risk factors: 1-2 risk factors Troponin: < normal limit HEART Score: 2 ED Review of Systems ROS: Stated complaint: CP/CONGESTION Other details as noted in HPI Comment: All other systems reviewed and negative Constitutional: denies: chills, fever Eyes: denies: eye pain, vision change ENT: denies: ear pain, throat pain Respiratory: denies: cough, shortness of breath Cardiovascular: chest pain. denies: palpitations Gastrointestinal: denies: abdominal pain, vomiting Genitourinary: denies: dysuria, discharge Musculoskeletal: denies: back pain, arthralgia Skin: denies: rash, lesions Neurological: headache. denies: weakness, numbness, paresthesias ED Past Medical Hx - Past Medical History Previous Medical History?: Yes Hx Hypertension: Yes Hx CVA: Yes (11-05-2012) Hx Heart Attack/AMI: No Hx Congestive Heart Failure: No Hx Diabetes: No Hx Deep Vein Thrombosis: No Hx Pulmonary Embolism: No Hx Liver Disease: No Hx Renal Disease: No Hx Sickle Cell Disease: No Hx Arthritis: No Hx Seizures: No Hx Kidney Stones: No Hx Asthma: No Hx COPD: No Hx Tuberculosis: No Hx Dementia: No Hx HIV: No Additional medical history: Aneurysm brain - Surgical History Past Surgical History?: No Hx Coronary Stent: No Hx Pacemaker: No Hx Internal Defibrillator: No - Social History Smoking Status: Never Smoker Substance Use Type: None - Medications Home Medications: Home Medications Medication Instructions Recorded Confirmed Last Taken Type Aspirin 325 mg PO DAILY #30 tablet 07/22/17 12/08/19 12/08/19 Rx Valsartan [Diovan] 160 mg PO Q12HR #60 tablet 10/25/19 12/08/19 12/08/19 Rx hydrALAZINE [Apresoline TAB] 50 mg PO Q8HR #90 tablet 10/25/19 12/08/19 12/08/19 Rx Fluticasone [Flonase] 1 spray NS QDAY #1 bottle 12/08/19 Unknown Rx NIFEdipine [Nifedipine ER] 60 mg PO DAILY 12/08/19 12/08/19 12/08/19 History ED Physical Exam - General Limitations: No Limitations - Other Other exam information: GENERAL: The patient is well-developed well-nourished. HENT: Normocephalic. Atraumatic. Patient has moist mucous membranes. EYES: Extraocular motions are intact. No nystagmus. NECK: Supple. Trachea is midline. CHEST/LUNGS: Clear to auscultation. There is no respiratory distress noted. There is reproducible midsternal chest pain to palpation, but no crepitus or deformity. HEART/CARDIOVASCULAR: Regular. There is no tachycardia. There is no murmur. ABDOMEN: Abdomen is soft, nontender. Patient has normal bowel sounds. There is no abdominal distention. SKIN: Skin is warm and dry. NEURO: The patient is awake, alert, and oriented. The patient is cooperative. The patient has no focal neurologic deficits. Normal speech. Cranial nerves II through XII grossly intact. MUSCULOSKELETAL: There is no tenderness or deformity. There is no limitation range of motion. ED Course Vital Signs 12/08/19 12/08/19 12/08/19 09:14 10:56 10:58 Temperature 98.3 F Pulse Rate 95 H Respiratory 18 18 Rate Blood Pressure Blood Pressure 173/113 [Left] O2 Sat by Pulse 100 99 98 Oximetry 12/08/19 12/08/19 12/08/19 10:59 11:00 11:15 Temperature Pulse Rate 82 85 73 Respiratory 16 18 11 L Rate Blood Pressure 214/110 202/118 Blood Pressure 214/110 [Left] O2 Sat by Pulse 98 99 Oximetry 12/08/19 12/08/19 12/08/19 11:28 11:30 11:45 Temperature Pulse Rate 85 74 72 Respiratory 11 L 12 Rate Blood Pressure 212/114 166/100 184/109 Blood Pressure 202/118 [Left] O2 Sat by Pulse 96 96 Oximetry 12/08/19 12/08/19 12/08/19 12:00 12:08 12:15 Temperature Pulse Rate 80 80 Respiratory 13 Rate Blood Pressure 189/118 182/118 202/117 Blood Pressure [Left] O2 Sat by Pulse 97 99 Oximetry 12/08/19 12/08/19 12/08/19 12:30 12:43 12:45 Temperature Pulse Rate 80 Respiratory 16 Rate Blood Pressure 198/111 195/105 Blood Pressure 198/111 [Left] O2 Sat by Pulse 97 99 98 Oximetry 12/08/19 12/08/19 12/08/19 12:53 13:00 13:15 Temperature Pulse Rate 81 Respiratory 18 Rate Blood Pressure 191/107 166/97 Blood Pressure 195/105 [Left] O2 Sat by Pulse 100 98 97 Oximetry 12/08/19 13:28 Temperature Pulse Rate 80 Respiratory Rate Blood Pressure Blood Pressure 166/97 [Left] O2 Sat by Pulse Oximetry MELLO score - Mello Score Age > 65: (0) No Aspirin use within the Past 7 Days: (0) No 3 or more CAD Risk Factors: (0) No 2 or more Angina events in past 24 hrs: (1) Yes Known CAD with more than 50% Stenosis: (0) No Elevated Cardiac Markers: (0) No ST Deviation Greater than 0.5mm: (0) No MELLO Score: 1 ED Medical Decision Making - Lab Data Result diagrams: 12/08/19 09:44 12/08/19 09:44 - EKG Data -: EKG Interpreted by Me EKG shows normal: sinus rhythm (PVCs), axis, intervals, QRS complexes (LVH), ST- T waves Rate: normal - EKG Data When compared to previous EKG there are: no significant change Interpretation: unchanged when compared t (10/24/19) - Radiology Data Radiology results: image reviewed interpreted by me: Chest x-ray does not show any acute process. There are no pleural effusions, obvious pneumonia and there is no pneumothorax. No significant cardiomegaly. - Medical Decision Making This patient presents to the emergency department with a complaint of a mild headache, some midsternal chest discomfort, and uncontrolled blood pressure. Patient does have elevated blood pressure despite her alleged compliance with her 3 blood pressure medications. She was given a dose of labetalol and then a dose of oral hydralazine and her blood pressure came down to a much more reasonable level. EKG does not appear consistent with any ST elevation myocardial infarction and is unchanged from previous. On examination she has normal heart and lung sounds to auscultation and the chest pain is reproducible to palpation of the chest wall. Chest x-ray does not show any pneumonia, pleural effusions, pneumothorax, or any other acute process. Patient's labs have been mostly unremarkable including CBC, metabolic panel and negative troponins x2. The rest of her vital signs have been reassuring including being afebrile. She has a low heart and MELLO score. She is low on the Wells score criteria and negative for the pulmonary embolism rule out criteria. The patient's pain has completely resolved after a dose of Toradol and after mul tiple reevaluations. She will be discharged home to follow-up with primary care and cardiology. She will return to the emergency department with any worsening of her symptoms or if any acute distress. Critical Care Time: No Critical care attestation.: If time is entered above; I have spent that time in minutes in the direct care of this critically ill patient, excluding procedure time. ED Disposition Clinical Impression: Intermittent chest pain Hypertension Qualifiers: Hypertension type: essential hypertension Qualified Code(s): I10 - Essential (primary) hypertension Disposition: TO HOME OR SELFCARE Is pt being admited?: No Condition: Stable Instructions: Chest Pain (ED), Costochondritis (ED), Hypertension (ED) Additional Instructions: Please follow-up with a primary care physician in the next few days. I have given you a referral for a local primary care physician, Dr. Cox, and a local primary care clinic, [facility]. I have also given you a referral for a local traffic routing engineer, Dr. Pop, part of [facility]. Take your medications as prescribed. Try to stay away from foods that are high in salt and caffeinated products. Keep a blood pressure log. Return to the emergency department with any worsening of your symptoms, new or concerning symptoms not addressed during this current emergency department visit, or with any acute distress. Prescriptions: Fluticasone [Flonase] 1 spray NS QDAY #1 bottle Referrals: BANDAR POP MD [Staff Physician] - 3-5 Days GEOVANY COX MD [Staff Physician] - 3-[address] [facility] [Provider Group] - 3-5 Days Forms: Work/School Release Form(ED) Time of Disposition: 14:03
[2019-12-08] MEDS ORDERED: hydrALAZINE 25 MG TAB PO ONE (12:01)
[2019-12-08 13:28] VITALS: BP 166/97
== END 2019-12-08 14:17 | disposition home or self-care (01) ==
LOC: ED 09:09
DX: R07.89 Other chest pain (principal); I10 Essential (primary) hypertension; Z86.73 Personal history of transient ischemic attack (TIA), and cerebral infarction without residual deficits; Z79.899 Other long term (current) drug therapy; Z88.0 Allergy status to penicillin
CPT/HCPCS: 36415; 71046; 80048; 84484; 85025; 93005; 96374; 96375; 99284; J1885

== ENCOUNTER 2020-01-24 09:59 | Emergency (ER) | payer SELFPAY ==
[2020-01-24 10:07] VITALS: BP 139/88
[2020-01-24] MEDS ORDERED: KETOROLAC 30 MG/1 ML INJ IM ONE (11:10)
[2020-01-24] MEDS ORDERED: COLCHICINE 0.6 MG CAP PO ONE (11:10)
[2020-01-24] MEDS ORDERED: dexAMETHasone 20 MG/5 ML VIAL IV ONE (11:10)
--- NOTE | 2020-01-24 11:16 | Emergency Department Report ---
ED Extremity Problem HPI - General Chief complaint: Extremity Injury, Lower Stated complaint: FOOT PAIN Time Seen by Provider: 01/24/20 11:09 Source: patient Mode of arrival: Wheelchair Limitations: No Limitations - History of Present Illness Initial comments: The patient was evaluated in the emergency department for symptoms described in the history of present illness. He/she was evaluated in the context of the global COVID-19 pandemic, which necessitated consideration that the patient might be at risk for infection with the virus that causes COVID-19. Institutional protocols and algorithms that pertain to the evaluation of patients at risk for COVID-19 are in a state of rapid change based on information released by regulatory bodies including the CDC and federal and state organizations. These policies and algorithms were followed during the patient's care in the emergency department. Please note that these policies, procedures and recommendations changed on a rapid basis. Ports is painful to touch and to move the foot 59-year-old -[place] female presents to the emergency room complaining of gout to the right foot that started this morning. Patient reports her pains a 9 out of 10 not able to put on her shoes or socks. She does admit to having a pork steak yesterday. She takes her blood pressure medication as prescribed which she is on Diovan hydralazine and nifedipine. Patient denies any fever chills no trauma to her foot. MD Complaint: extremity pain, extremity swelling, joint paint Location: right, toe (Great) History of Same: Yes -: Yes arthralgia Severity scale (0 -10): 9 Quality: burning, stabbing, sharp Consistency: constant Improves with: nothing Worsens with: weight bearing, walking, palpation Associated Symptoms: denies other symptoms - Related Data Home Medications Medication Instructions Recorded Confirmed Last Taken NIFEdipine [Nifedipine ER] 60 mg PO DAILY 12/08/19 12/08/19 12/08/19 Previous Rx's Medication Instructions Recorded Last Taken Type Aspirin 325 mg PO DAILY #30 tablet 07/22/17 12/08/19 Rx Valsartan [Diovan] 160 mg PO Q12HR #60 tablet 10/25/19 12/08/19 Rx hydrALAZINE [Apresoline TAB] 50 mg PO Q8HR #90 tablet 10/25/19 12/08/19 Rx Fluticasone [Flonase] 1 spray NS QDAY #1 bottle 12/08/19 Unknown Rx Colchicine 0.6 mg PO BID #6 capsule 01/24/20 Unknown Rx Indomethacin 50 mg PO Q8H PRN #21 capsule 01/24/20 Unknown Rx Prednisone [predniSONE 5 mg (6-Day 5 mg PO .TAPER #1 tab.ds.pk 01/24/20 Unknown Rx Pack, 21 Tabs)] Allergies Allergy/AdvReac Type Severity Reaction Status Date / Time Penicillins Allergy Swelling Verified 01/24/20 10:03 ED Review of Systems ROS: Stated complaint: FOOT PAIN Other details as noted in HPI Comment: All other systems reviewed and negative ED Past Medical Hx - Past Medical History Hx Hypertension: Yes Hx CVA: Yes (11-05-2012) Hx Heart Attack/AMI: No Hx Congestive Heart Failure: No Hx Diabetes: No Hx Deep Vein Thrombosis: No Hx Pulmonary Embolism: No Hx Liver Disease: No Hx Renal Disease: No Hx Sickle Cell Disease: No Hx Arthritis: No Hx Seizures: No Hx Kidney Stones: No Hx Asthma: No Hx COPD: No Hx Tuberculosis: No Hx Dementia: No Hx HIV: No Additional medical history: Aneurysm brain/ GOUT - Surgical History Hx Coronary Stent: No Hx Pacemaker: No Hx Internal Defibrillator: No - Social History Smoking Status: Never Smoker Substance Use Type: None - Medications Home Medications: Home Medications Medication Instructions Recorded Confirmed Last Taken Type Aspirin 325 mg PO DAILY #30 tablet 07/22/17 12/08/19 12/08/19 Rx Valsartan [Diovan] 160 mg PO Q12HR #60 tablet 10/25/19 12/08/19 12/08/19 Rx hydrALAZINE [Apresoline TAB] 50 mg PO Q8HR #90 tablet 10/25/19 12/08/19 12/08/19 Rx Fluticasone [Flonase] 1 spray NS QDAY #1 bottle 12/08/19 Unknown Rx NIFEdipine [Nifedipine ER] 60 mg PO DAILY 12/08/19 12/08/19 12/08/19 History Colchicine 0.6 mg PO BID #6 capsule 01/24/20 Unknown Rx Indomethacin 50 mg PO Q8H PRN #21 capsule 01/24/20 Unknown Rx Prednisone [predniSONE 5 mg (6-Day 5 mg PO .TAPER #1 tab.ds.pk 01/24/20 Unknown Rx Pack, 21 Tabs)] ED Physical Exam - General Limitations: No Limitations General appearance: alert, in no apparent distress - Head Head exam: Present: atraumatic, normocephalic - Eye Eye exam: Present: normal appearance - ENT ENT exam: Present: mucous membranes moist - Neck Neck exam: Present: normal inspection, full ROM - Respiratory Respiratory exam: Present: accessory muscle use - Expanded Lower Extremity Exam Right Hip exam: Present: normal inspection, full ROM Upper Leg exam: Present: normal inspection, full ROM Knee exam: Present: normal inspection, full ROM Lower Leg exam: Present: normal inspection, full ROM Ankle exam: Present: normal inspection, full ROM Foot/Toe exam: Present: tenderness (Great toe), swelling (Great toe), erythema (Great toe) Neuro vascular tendon exam: Present: no vascular compromise - Back Exam Back exam: Present: normal inspection - Neurological Exam Neurological exam: Present: alert, oriented X3 - Psychiatric Psychiatric exam: Present: normal affect, normal mood - Skin Skin exam: Present: warm, dry, intact, normal color. Absent: rash ED Course Vital Signs 01/24/20 10:06 Temperature 97.6 F Pulse Rate 100 H Respiratory 20 Rate Blood Pressure 139/88 O2 Sat by Pulse 100 Oximetry ED Medical Decision Making - Medical Decision Making Ports is painful to touch and to move the foot 59-year-old -Sudanese female presents to the emergency room complaining of gout to the right foot that started this morning. Patient reports her pains a 9 out of 10 not able to put on her shoes or socks. She does admit to having a pork steak yesterday. She takes her blood pressure medication as prescribed which she is on Diovan hydralazine and nifedipine. Patient denies any fever chills no trauma to her foot. Patient appears to have a gout exacerbation of her right great toe. Patient was given dexamethasone 10 mg IM, Toradol 30 mg IM and colchicine 1.2 mg p.o. Patient will be discharged home on a prednisone taper, indomethacin and colchicine. Critical care attestation.: If time is entered above; I have spent that time in minutes in the direct care of this critically ill patient, excluding procedure time. ED Disposition Clinical Impression: Gout attack Disposition: TO HOME OR SELFCARE Is pt being admited?: No Does the pt Need Aspirin: No Condition: Stable Instructions: Low-Purine Eating Plan Additional Instructions: Please take medications as prescribed. Is very important that you increase your water intake by 3 to 4 L daily. Avoid foods such as shrimp crabs red meat wine beer. Follow-up with your primary care provider. Prescriptions: Colchicine 0.6 mg PO BID #6 capsule Indomethacin 50 mg PO Q8H PRN #21 capsule PRN Reason: Pain , Severe (7-10) Prednisone [predniSONE 5 mg (6-Day Pack, 21 Tabs)] 5 mg PO .TAPER #1 tab.ds.pk Referrals: CARMEN ISAACS MD [Primary Care Provider] - 3-5 Days Forms: Work/School Release Form(ED)
[2020-01-24] MEDS ORDERED: dexAMETHasone 20 MG/5 ML VIAL IM ONE (11:17)
== END 2020-01-24 11:33 | disposition home or self-care (01) ==
LOC: ED 09:59
DX: M10.9 Gout, unspecified (principal); Z86.73 Personal history of transient ischemic attack (TIA), and cerebral infarction without residual deficits; Z98.890 Other specified postprocedural states; Z88.0 Allergy status to penicillin
CPT/HCPCS: 96372; 99282; J1100; J1885

== ENCOUNTER 2020-05-13 10:20 | Emergency (ER) | payer SELFPAY ==
[2020-05-13] MEDS ORDERED: MORPHINE 4 MG/1 ML INJ IV ONE (11:15)
[2020-05-13] MEDS ORDERED: METOCLOPRAMIDE 10 MG/2 ML INJ IV ONE (11:15)
--- NOTE | 2020-05-13 11:19 | Emergency Department Report ---
HPI - General Chief Complaint: Headache Time Seen by Provider: 05/13/20 11:06 - HPI HPI: This is a 60-year-old -[place]er female presents to the emergency department with complaint of a 3-day history of a right-sided headache. She has a past medical history that includes hypertension, gout, previous CVA without residual deficits, and the patient has a right-sided 3 mm aneurysm that was seen here on a brain MRA in July 2017. Currently the patient says that her headache is 10 out of 10 but denies this being the worst headache of her life. She denies any numbness or paresthesias, muscle weakness, slurred speech, chest pain, shortness of breath, fever. She has tried some Tylenol for symptoms without any relief. She does not have a primary care physician, neurologist or neurosurgeon that she follows with regularly. No recent travel or sick contacts at home. No known aggravating or alleviating factors. ED Past Medical Hx - Past Medical History Hx Hypertension: Yes Hx CVA: Yes (11-05-2012) Hx Heart Attack/AMI: No Hx Congestive Heart Failure: No Hx Diabetes: No Hx Deep Vein Thrombosis: No Hx Pulmonary Embolism: No Hx Liver Disease: No Hx Renal Disease: No Hx Sickle Cell Disease: No Hx Arthritis: No Hx Seizures: No Hx Kidney Stones: No Hx Asthma: No Hx COPD: No Hx Tuberculosis: No Hx Dementia: No Hx HIV: No Additional medical history: Aneurysm brain/ GOUT - Surgical History Hx Coronary Stent: No Hx Pacemaker: No Hx Internal Defibrillator: No - Social History Smoking Status: Never Smoker Substance Use Type: None - Medications Home Medications: Home Medications Medication Instructions Recorded Confirmed Last Taken Type Aspirin 325 mg PO DAILY #30 tablet 07/22/17 12/08/19 12/08/19 Rx Valsartan [Diovan] 160 mg PO Q12HR #60 tablet 10/25/19 12/08/19 12/08/19 Rx hydrALAZINE [Apresoline TAB] 50 mg PO Q8HR #90 tablet 10/25/19 12/08/19 12/08/19 Rx Fluticasone [Flonase] 1 spray NS QDAY #1 bottle 12/08/19 Unknown Rx NIFEdipine [Nifedipine ER] 60 mg PO DAILY 12/08/19 12/08/19 12/08/19 History Colchicine 0.6 mg PO BID #6 capsule 01/24/20 Unknown Rx Indomethacin 50 mg PO Q8H PRN #21 capsule 01/24/20 Unknown Rx Prednisone [predniSONE 5 mg (6-Day 5 mg PO .TAPER #1 tab.ds.pk 01/24/20 Unknown Rx Pack, 21 Tabs)] ED Review of Systems ROS: Stated complaint: HEAD PAIN Other details as noted in HPI Comment: All other systems reviewed and negative Constitutional: denies: chills, fever Eyes: vision change (blurry vision right eye). denies: eye pain ENT: denies: ear pain, throat pain Respiratory: denies: cough, shortness of breath Cardiovascular: denies: chest pain, palpitations Gastrointestinal: denies: abdominal pain, vomiting Genitourinary: denies: dysuria, discharge Musculoskeletal: denies: back pain, arthralgia Skin: denies: rash, lesions Neurological: headache. denies: weakness Physical Exam - Physical Exam Vital Signs: Vital Signs 05/13/20 10:58 Temperature 97.8 F Pulse Rate 82 Respiratory 18 Rate Blood Pressure 140/92 O2 Sat by Pulse 100 Oximetry Physical Exam: GENERAL: The patient is well-developed well-nourished. HENT: Normocephalic. Atraumatic. Patient has moist mucous membranes. EYES: Extraocular motions are intact. Pupils equal reactive to light bilaterally. No nystagmus. NECK: Supple. Trachea is midline. CHEST/LUNGS: Clear to auscultation. There is no respiratory distress noted. HEART/CARDIOVASCULAR: Regular. There is no tachycardia. There is no murmur. ABDOMEN: Abdomen is soft, nontender. Patient has normal bowel sounds. SKIN: Skin is warm and dry. NEURO: The patient is awake, alert, and oriented. The patient is cooperative. Normal speech. Cranial nerves II through XII grossly intact. No facial asymmetry. No pronator drift or dysmetria. MUSCULOSKELETAL: There is no tenderness or deformity. There is no limitation range of motion. ED Course Vital Signs 05/13/20 10:58 Temperature 97.8 F Pulse Rate 82 Respiratory 18 Rate Blood Pressure 140/92 O2 Sat by Pulse 100 Oximetry - Consultations Consultation #1: 05/13/20 16:15 I spoke to the telemedicine neurologist on-call, Dr. Gutiérrez, who is going to evaluate the patient and place a consult with his recommendations. ED Medical Decision Making - Lab Data Result diagrams: 05/13/20 11:18 05/13/20 11:18 Lab Results 05/13/20 05/13/20 Range/Units 11:18 11:18 WBC 5.9 (4.5-11.0) K/mm3 RBC 4.63 (3.65-5.03) M/mm3 Hgb 13.2 (10.1-14.3) gm/dl Hct 40.3 (30.3-42.9) % MCV 87 (79-97) fl MCH 29 (28-32) pg MCHC 33 (30-34) % RDW 15.0 (13.2-15.2) % Plt Count 269 (140-440) K/mm3 Lymph % (Auto) 35.5 H (13.4-35.0) % [place] % (Auto) 9.6 H (0.0-7.3) % Eos % (Auto) 2.2 (0.0-4.3) % Baso % (Auto) 0.4 (0.0-1.8) % Lymph # (Auto) 2.1 (1.2-5.4) K/mm3 [place] # (Auto) 0.6 (0.0-0.8) K/mm3 Eos # (Auto) 0.1 (0.0-0.4) K/mm3 Baso # (Auto) 0.0 (0.0-0.1) K/mm3 Seg Neutrophils % 52.3 (40.0-70.0) % Seg Neutrophils # 3.1 (1.8-7.7) K/mm3 Sodium 141 (137-145) mmol/L Potassium 4.3 (3.6-5.0) mmol/L Chloride 106.9 (98-107) mmol/L Carbon Dioxide 20 L (22-30) mmol/L Anion Gap 18 mmol/L BUN 17 (7-17) mg/dL Creatinine 1.1 (0.6-1.2) mg/dL Estimated GFR > 60 ml/min BUN/Creatinine Ratio 15 % Glucose 87 (65-100) mg/dL Calcium 9.2 (8.4-10.2) mg/dL Total Bilirubin 0.30 (0.1-1.2) mg/dL AST 19 (5-40) units/L ALT 10 (7-56) units/L Alkaline Phosphatase 120 (35-129) units/L Total Protein 7.5 (6.3-8.2) g/dL Albumin 4.4 (3.9-5) g/dL Albumin/Globulin Ratio 1.4 % - Radiology Data Radiology results: report reviewed CT head/brain wo con INDICATION: Right-sided headache for 2 weeks. TECHNIQUE: Ro utine CT head without contrast. All CT scans at this location are performed using CT dose reduction for ALARA by means of automated exposure control. COMPARISON: 10/19/[address] FINDINGS: BRAIN / INTRACRANIAL CONTENTS: No acute hemorrhage, mass effect, midline shift, or hydrocephalus. No appreciable acute large territorial or lacunar infarct. Stable extensive confluent hypoattenuati on in the cerebral white matter suggesting small vessel ischemic change. Stable chronic lacunar infarcts in the bilateral thalami. ORBITS: No significant abnormality of visualized orbits. SINUSES / MASTOIDS: No significant abnormality of visualized sinuses and mastoid air cells. ADDITIONAL FINDINGS: None. IMPRES MELBA: 1. No acute intracranial abnormality. No adverse change from the prior exam. - Medical Decision Making This patient presented to the emergency department with a complaint of a 3-day history of a right-sided headache, and a 2-day history of some blurry vision in the right eye. Initially on examination the patient also complained of some subjective decrease sensation to the right side of the face. Otherwise the patient's cranial nerves are intact and there are no other focal, motor or sensory deficits. CT scan of the head without contrast did not show any bleed, shift, mass, ischemia, or any other acute process. Patient's labs have been unremarkable including CBC and metabolic panel. Vital signs have been reassuring throughout her ED course. The patient was seen by the telemedicine neurologist to felt that this is more consistent with a complex migraine and less consistent with a stroke or TIA. During his examination the patient has an NIH stroke scale of 0. He recommended giving Toradol, Benadryl and an antiemetic to treat the complex migraine. The patient says that her symptoms have resolved and her pain is 0 out of 10 and she did not want the medications given. She was seen ambulatory throughout the emergency department and both appears and feels stable. She will be discharged home to follow-up with primary care and also been given outpatient referral for neurology. She will return to the ER with any worsening of her symptoms or with any acute distress. Critical Care Time: No Critical care attestation.: If time is entered above; I have spent that time in minutes in the direct care of this critically ill patient, excluding procedure time. ED Disposition Clinical Impression: Headache Qualifiers: Headache type: unspecified Headache chronicity pattern: unspecified pattern Intractability: not intractable Qualified Code(s): R51.9 - Headache, unspecified Disposition: TO HOME OR SELFCARE Is pt being admited?: No Condition: Stable Instructions: General Headache Without Cause, Recurrent Migraine Headache Additional Instructions: Please follow-up with a primary care physician in the next few days. I have given you a referral for a local neurologist, Dr. Ponce, to follow-up regarding your headaches. Take all of your medications as previously prescribed. Return to the emergency department with any worsening of your symptoms, new or concerning symptoms not addressed during this current emergency department visit, or with any acute distress. Referrals: TERE PONCE MD [Referring] - 2-3 Days [facility] [Provider Group] - 2-3 Days Time of Disposition: 15:29
[2020-05-13 11:37] LABS: Basophils % (Auto) 0.4 % (0.0-1.8); Eosinophils # (Auto) 0.1 K/mm3 (0.0-0.4); Eosinophils % (Auto) 2.2 % (0.0-4.3); Hematocrit 40.3 % (30.3-42.9); Hemoglobin 13.2 gm/dl (10.1-14.3); Lymphocytes # (Auto) 2.1 K/mm3 (1.2-5.4); Lymphocytes % (Auto) 35.5 % (13.4-35.0); Mean Corpuscular HGB Conc 33 % (30-34); Mean Corpuscular Volume 87 fl (79-97); Monocytes # (Auto) 0.6 K/mm3 (0.0-0.8); Monocytes % (Auto) 9.6 % (0.0-7.3); Platelet Count 269 K/mm3 (140-440); Red Blood Count 4.63 M/mm3 (3.65-5.03)
[2020-05-13 12:05] LABS: Alanine Aminotransferase 10 units/L (7-56); Albumin 4.4 g/dL (3.9-5); BUN/Creatinine Ratio 15; Blood Urea Nitrogen 17 mg/dL (7-17); Calcium 9.2 mg/dL (8.4-10.2); Hemolysis Index 55
--- NOTE | 2020-05-13 12:50 | Cat Scan Report ---
CT head/brain wo con INDICATION: Right-sided headache for 2 weeks. TECHNIQUE: Routine CT head without contrast. All CT scans at this location are performed using CT dos e reduction for ALARA by means of automated exposure control. COMPARISON: 10/19/[address] FINDINGS: BRAIN / INTRACRANIAL CONTENTS: No acute hemorrhage, mass effect, midline shift, or hydrocephalus. No appreciable acute large territorial or lacunar infarct. Stable extensive confluent hypoattenuation in the cerebral white matter suggesting small vessel ischemic change. Stable chronic lacunar infarcts i n the bilateral thalami. ORBITS: No significant abnormality of visualized orbits. SINUSES / MASTOIDS: No significant abnormality of visualized sinuses and mastoid air cells. ADDITIONAL FINDINGS: None. IMPRESSION: 1. No acute intracranial abnormality. No adverse change from the prior exam. Signer Name: Good Stevenson MD Signed: 05/13/2020 12:45 PM Workstation Name: [id number]
[2020-05-13 13:54] VITALS: BP 147/98
--- NOTE | 2020-05-13 14:30 | Consultation ---
Medications and Allergies Allergies Allergy/AdvReac Type Severity Reaction Status Date / Time Penicillins Allergy Swelling Verified 05/13/20 10:53 Home Medications Medication Instructions Recorded Confirmed Last Taken Type Aspirin 325 mg PO DAILY #30 tablet 07/22/17 12/08/19 12/08/19 Rx Valsartan [Diovan] 160 mg PO Q12HR #60 tablet 10/25/19 12/08/19 12/08/19 Rx hydrALAZINE [Apresoline TAB] 50 mg PO Q8HR #90 tablet 10/25/19 12/08/19 12/08/19 Rx Fluticasone [Flonase] 1 spray NS QDAY #1 bottle 12/08/19 Unknown Rx NIFEdipine [Nifedipine ER] 60 mg PO DAILY 12/08/19 12/08/19 12/08/19 History Colchicine 0.6 mg PO BID #6 capsule 01/24/20 Unknown Rx Indomethacin 50 mg PO Q8H PRN #21 capsule 01/24/20 Unknown Rx Prednisone [predniSONE 5 mg (6-Day 5 mg PO .TAPER #1 tab.ds.pk 01/24/20 Unknown Rx Pack, 21 Tabs)] Physical Examination - Vital Signs Vital Signs: Vital Signs Temp Pulse Resp BP Pulse Ox 97.8 F 82 18 140/92 100 05/13/20 10:58 05/13/20 10:58 05/13/20 10:58 05/13/20 10:58 05/13/20 10:58 Results - Laboratory Findings CBC and BMP: 05/13/20 11:18 05/13/20 11:18 Abnormal Lab Findings: Abnormal Labs 05/13/20 05/13/20 11:18 11:18 Lymph % (Auto) 35.5 H [place] % (Auto) 9.6 H Carbon Dioxide 20 L Assessment and Plan [place] [facility] Consult Note # Demographics Consult Type: ED Teleneuro First Name: Maxim Last Name: Dread Date of : 1960 Age: 60 Gender: female Time of initial page ([place] Time): 05-13-2020, 12:10 Time of return call ([place] Time): 05-13-2020, 12:11 # Scores Time of exam and NIHSS ([place] Time): 05-13-2020, 12:27:00 Level of Consciousness 1a: [0] = Alert; keenly responsive LOC Questions 1b: [0] = Answers both questions correctly LOC Commands 1c: [0] = Performs both tasks correctly Best Gaze 2: [0] = Normal Visual 3: [0] = No visual loss Facial Palsy 4: [0] = Normal symmetrical movements Motor Arm Left 5a: [0] = No drift Motor Arm Right 5b: [0] = No drift Motor Leg Left 6a: [0] = No drift Motor Leg Right 6b: [0] = No drift Limb Ataxia 7: [0] = Absent Sensory 8: [0] = Normal Best Language 9: [0] = No aphasia Dysarthria 10: [0] = Normal Extinction and Inattention 11: [0] = No abnormality NIHSS Total: 0 # Assessment Impression: Migraine (Complex) # Plan Thrombolytic/Intervention: NOT IV Alteplase or IA Intervention Alteplase Exclusion (<3 hour window): time of onset unclear Alteplase Exclusion: > 4.5 hours Intraarterial Exclusion: clinically not consistent with stroke Medication: migraine cocktail: Toradol 30 mg IV + Benadryl 25 mg IV + antiemetic IV Other: I have discussed my recommendations with the referring provider Additional Recommendations: If not resolving with migraine directed treatment, consider CTA head/neck and MRI brain, otherwise since similar to prior complex migraines, could be reasonable for outpatient follow-up. Disposition: discharge
[2020-05-13] MEDS ORDERED: diphenhydrAMINE 50 MG/ML VIAL IV ONE (14:41)
[2020-05-13] MEDS ORDERED: KETOROLAC 30 MG/1 ML INJ IV ONE (14:41)
== END 2020-05-13 16:06 | disposition home or self-care (01) ==
LOC: ED 10:20
DX: R51.9 Headache, unspecified (principal); I10 Essential (primary) hypertension; Z79.899 Other long term (current) drug therapy; Z88.0 Allergy status to penicillin; Z86.73 Personal history of transient ischemic attack (TIA), and cerebral infarction without residual deficits
CPT/HCPCS: 36415; 70450; 80053; 85025; 96374; 96375; 99284; J2270; J2765

== ENCOUNTER 2020-07-24 10:33 | Emergency (ER) | payer SELFPAY ==
--- NOTE | 2020-07-24 10:51 | Event Note ---
ED Screening Note Date of service: 07/24/20 Time: 10:50 ED Screening Note: Patient complains of headache and blurry vision History of brain aneurysm This initial assessment/diagnostic orders/clinical plan/treatment(s) is/are subject to change based on patients health status, clinical progression and re- assessment by fellow clinical providers in the ED. Further treatment and workup at subsequent clinical providers discretion. Patient/guardian urged not to elope from the ED as their condition may be serious if not clinically assessed and managed. Initial orders include: Labs CT
[2020-07-24] MEDS ORDERED: KETOROLAC 30 MG/1 ML INJ IV ONE (11:17)
[2020-07-24] MEDS ORDERED: hydrALAZINE 20 MG/1 ML INJ IV ONE (11:17)
--- NOTE | 2020-07-24 11:20 | Cat Scan Report ---
CT head/brain wo con INDICATION: headache, blurry vision, x3days hx of aneurysm. TECHNIQUE: Routine CT head. All CT scans at this location are performed using CT dose reduction for A GABRIELLA by means of automated exposure control. COMPARISON: 05/13/2020. FINDINGS: Intracranial: [place]-white matter differentiation is maintained. No intracranial hemorrhage. No extra a xial collection. No hydrocephalus. No herniation. Confluent periventricular and centrum semiovale whi te matter hypoattenuation most consistent with sequela of chronic microvascular disease, similar to p rior. Sinuses: Paranasal sinuses and mastoid air cells are essentially clear. Orbits: Globes are intact. 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 IMPRESSION: 1. No acute intracranial abnormality. Signer Name: Anthony Jean MD Signed: 07/24/2020 11:15 AM Workstation Name: [id number]
[2020-07-24 11:23] LABS: Basophils % (Auto) 0.6 % (0.0-1.8); Eosinophils # (Auto) 0.2 K/mm3 (0.0-0.4); Eosinophils % (Auto) 4.8 % (0.0-4.3); Hematocrit 40.9 % (30.3-42.9); Hemoglobin 13.5 gm/dl (10.1-14.3); Lymphocytes % (Auto) 38.1 % (13.4-35.0); Mean Corpuscular HGB Conc 33 % (30-34); Mean Corpuscular Volume 88 fl (79-97); Monocytes # (Auto) 0.4 K/mm3 (0.0-0.8); Monocytes % (Auto) 7.8 % (0.0-7.3); Platelet Count 229 K/mm3 (140-440); Red Blood Count 4.66 M/mm3 (3.65-5.03); Red Cell Distribution Width 14.8 % (13.2-15.2)
[2020-07-24 11:33] LABS: INR 0.9 (0.87-1.13)
[2020-07-24 11:34] LABS: Partial Thromboplastin Time 30.9 Sec. (24.2-36.6)
[2020-07-24 11:45] LABS: Alanine Aminotransferase 10 units/L (7-56); Albumin 4.4 g/dL (3.9-5); BUN/Creatinine Ratio 20; Blood Urea Nitrogen 22 mg/dL (7-17); Calcium 9.7 mg/dL (8.4-10.2); Hemolysis Index 3
[2020-07-24 12:22] VITALS: BP 202/105
--- NOTE | 2020-07-24 13:11 | Cat Scan Report ---
CT angio head INDICATION / CLINICAL INFORMATION: 60 years Female; headache hx aneurysm [id number]. TECHNIQUE: Thin cut axial images obtained through the head during IV bolus contrast administration. S agittal, coronal, and 3 plane MIP reconstructions performed by the technologist. NASCET type criteria used evaluate stenoses. Automated exposure control utilized for radiation reduction purposes. COMPARISON: None available. FINDINGS: INTERNAL CAROTID ARTERIES: There is mild atherosclerotic calcification involving distal internal burr tid arteries. There is beam hardening artifact. However, there is no significant stenosis by NASCET c riteria. VERTEBROBASILAR SYSTEM: The vertebrobasilar system also appears to demonstrate appropriate caliber wi thout significant focal stenosis at. 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 Otherwise I, there is no significant focal stenosis involving visualized cerebral arteries or adjacent branches at . There is no CT evidence of large vessel occlusion. ANEURYSM: There is an aneurysm extending inferiorly from the right anterior communicating artery christin uring 3 mm in greatest dimension. The findings would correlate with the brain since given history. ADDITIONAL FINDINGS: Remainder of the surrounding soft tissues are grossly normal. 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 There is mild calcification involving the distal internal carotid arteries. There is no CTA evidence of large vessel occlusion. Signer Name: Bacilio Alaniz MD Signed: 07/24/2020 1:07 PM Workstation Name: [id number]
--- NOTE | 2020-07-24 13:26 | Emergency Department Report ---
ED Headache HPI - General Chief Complaint: Headache Stated Complaint: HEADACHE ON THE RIGHT SIDE Time Seen by Provider: 07/24/20 10:49 - History of Present Illness Initial Comments: Patient is a 60-year-old F Pakistani female with past medical history of hypertension and a small aneurysm that is being monitored is presenting with a headache. Patient states headache is global but mostly on the right side. States she has a mild blurriness to her vision. Denies any focal neurological deficits of her arms legs or difficulty speaking. No ataxia. Patient states she has been compliant with her blood pressure medications. She is on hydralazine Procardia and Diovan. States she does not believe she has had any salty meals lately. She denies any nausea vomiting diarrhea cough cold or congestion. Allergies/Adverse Reactions: Allergies Penicillins Allergy (Verified 05/13/20 10:53) Swelling Home Medications: Ambulatory Orders Aspirin 325 mg PO DAILY #30 tablet 07/22/17 Valsartan [Diovan] 160 mg PO Q12HR #60 tablet 10/25/19 hydrALAZINE [Apresoline TAB] 50 mg PO Q8HR #90 tablet 10/25/19 NIFEdipine XL [Procardia Xl] 90 mg PO QDAY #30 tablet 07/24/20 ED Review of Systems ROS: Stated complaint: HEADACHE ON THE RIGHT SIDE Other details as noted in HPI Comment: All other systems reviewed and negative ED Past Medical Hx - Past Medical History Hx Hypertension: Yes Hx CVA: Yes (11-05-2012) Hx Heart Attack/AMI: No Hx Congestive Heart Failure: No Hx Diabetes: No Hx Deep Vein Thrombosis: No Hx Pulmonary Embolism: No Hx Liver Disease: No Hx Renal Disease: No Hx Sickle Cell Disease: No Hx Arthritis: No Hx Seizures: No Hx Kidney Stones: No Hx Asthma: No Hx COPD: No Hx Tuberculosis: No Hx Dementia: No Hx HIV: No Additional medical history: Aneurysm brain/ GOUT - Surgical History Hx Coronary Stent: No Hx Pacemaker: No Hx Internal Defibrillator: No - Social History Smoking Status: Never Smoker - Medications Home Medications: Home Medications Medication Instructions Recorded Confirmed Last Taken Type Aspirin 325 mg PO DAILY #30 tablet 07/22/17 07/24/20 07/24/20 08:00 Rx Valsartan [Diovan] 160 mg PO Q12HR #60 tablet 10/25/19 07/24/20 07/24/20 08:00 Rx hydrALAZINE [Apresoline TAB] 50 mg PO Q8HR #90 tablet 10/25/19 07/24/20 07/24/20 08:00 Rx NIFEdipine XL [Procardia Xl] 90 mg PO QDAY #30 tablet 07/24/20 Unknown Rx ED Physical Exam - General Limitations: No Limitations General appearance: alert, in no apparent distress - Head Head exam: Present: atraumatic, normocephalic - Eye Eye exam: Present: normal appearance, PERRL, EOMI - ENT ENT exam: Present: mucous membranes moist - Neck Neck exam: Present: normal inspection - Respiratory Respiratory exam: Present: normal lung sounds bilaterally. Absent: respiratory distress, wheezes, rales, rhonchi - Cardiovascular Cardiovascular Exam: Present: regular rate, normal rhythm, normal heart sounds. Absent: systolic murmur, diastolic murmur, rubs, gallop - GI/Abdominal GI/Abdominal exam: Present: soft, normal bowel sounds. Absent: distended, tenderness, guarding, rebound - Extremities Exam Extremities exam: Present: normal inspection - Back Exam Back exam: Present: normal inspection - Neurological Exam Neurological exam: Present: alert, oriented X3, CN II-XII intact, normal gait. Absent: motor sensory deficit - Psychiatric Psychiatric exam: Present: normal affect, normal mood - Skin Skin exam: Present: warm, dry, intact, normal color. Absent: rash ED Course Vital Signs 07/24/20 07/24/20 07/24/20 10:41 11:19 11:31 Temperature 97.7 F Pulse Rate 77 61 Respiratory 20 14 9 L Rate Blood Pressure 244/150 212/134 Blood Pressure [Right] O2 Sat by Pulse 100 100 100 Oximetry 07/24/20 07/24/20 12:09 12:21 Temperature Pulse Rate 66 77 Respiratory 18 Rate Blood Pressure Blood Pressure 202/127 202/105 [Right] O2 Sat by Pulse 98 Oximetry ED Medical Decision Making - Lab Data Result diagrams: 07/24/20 11:06 07/24/20 11:06 - Radiology Data [facility] [address] [place] [address] Cat Scan Report Signed Patient: MADELAINE EDGAR MR#: [id number] : 1960 Acct:[id number] Age/Sex: 60 / F ADM Date: 07/24/20 Loc: ED Attending Dr: Ordering Physician: ABE CHAVEZ Date of Service: 07/24/20 Procedure(s): CT head/brain wo con Accession Number(s): [id number] cc: ABE CHAVEZ CT head/brain wo con INDICATION: headache, blurry vision, x3days hx of aneurysm. TECHNIQUE: Routine CT head. All CT scans at this location are performed using CT dose reduction for ALARA by means of automated exposure control. COMPARISON: 05/13/2020. FINDINGS: Intracranial: Buenrostro-white matter differentiation is maintained. No intracranial hemorrhage. No extra axial collection. No hydrocephalus. No herniation. Confluent periventricular and centrum semiovale white matter hypoattenuation most consistent with sequela of chronic microvascular disease, similar to prior. Sinuses: Paranasal sinuses and mastoid air cells are essentially clear. Orbits: Globes are intact. 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 IMPRESSION: 1. No acute intracranial abnormality. Signer Name: Anthony Jean MD Signed: 07/24/2020 11:15 AM Workstation Name: [id number] CT angio head INDICATION / CLINICAL INFORMATION: 60 years Female; headache hx aneurysm [id number]. TECHNIQUE: Thin cut axial images obtained through the head during IV bolus contrast administration. Sagittal, coronal, and 3 plane MIP reconstructions performed by the technol ogjori. NASCET type criteria used evaluate stenoses. Automated exposure control utilized for radiati on reduction purposes. COMPARISON: None available. FINDINGS: INTERNAL CAROTID ARTERIES: There is mild atherosclerotic calcification involving distal internal carotid arteries. There is beam hardening artifact. However, there is no significant stenosis by NASCET criteria. VERTEBROBASILAR SYSTEM: The vertebrobasilar system also appears to demonstrate appropriate caliber without significant focal stenosis at. 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 Otherwise I, there is no significant focal stenosis involving visualized cerebral arteries or adjacent branches at. There is no CT evidence of large vessel occlusion. ANEURYSM: There is an aneurysm extending inferiorly from the right anterior communicating artery measuring 3 mm in greatest dimension. The findings would correlate with the brain since given history. ADDITIONAL FINDINGS: Remainder of the surrounding soft tissues are grossly normal. 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 There is mild calcification involving the distal internal carotid arteries. There is no CTA evidence of large vessel occlusion. Signer Name: Bacilio Alaniz MD Signed: 07/24/2020 1:07 PM Workstation Name: [id number] - Medical Decision Making Patient's headache resolved after medications given. Blood pressure decreased to 197 systolic after a dose of hydralazine. We will increase the patient's nifedipine dose to 120. Patient also to follow-up with her primary care physician. There are no intracranial hemorrhage was seen on CT head and a CT angiogram was done which showed a 3 mm small aneurysm. Please see the report. Does not appear to be any change in size or caliber. Patient stable for discharge. Critical care attestation.: If time is entered above; I have spent that time in minutes in the direct care of this critically ill patient, excluding procedure time. ED Disposition Clinical Impression: Hypertensive urgency, Aneurysm of anterior communicating artery Disposition: DC-01 TO HOME OR SELFCARE Is pt being admited?: No Does the pt Need Aspirin: No Condition: Stable Instructions: Preventing Hypertension Prescriptions: NIFEdipine XL [Procardia Xl] 90 mg PO QDAY #30 tablet Referrals: PRIMARY CARE, [Primary Care Provider] - 3-5 Days Time of Disposition: 13:28
== END 2020-07-24 13:45 | disposition home or self-care (01) ==
LOC: ED 10:33
DX: I16.0 Hypertensive urgency (principal); I60.2 Nontraumatic subarachnoid hemorrhage from anterior communicating artery; Z86.73 Personal history of transient ischemic attack (TIA), and cerebral infarction without residual deficits; Z88.0 Allergy status to penicillin; Z79.899 Other long term (current) drug therapy
CPT/HCPCS: 36415; 70450; 70496; 80053; 85025; 85610; 85730; 96374; 96375; 99284; J0360; J1885; Q9967

== ENCOUNTER 2020-10-18 13:01 | Emergency (ER) | payer SELFPAY ==
[2020-10-18 13:29] VITALS: BP 259/129
[2020-10-18] MEDS ORDERED: HYDROcodone/ACETAMINOPHEN 5-325 MG TAB PO ONE (13:39)
--- NOTE | 2020-10-18 13:43 | Emergency Department Report ---
ED Upper Extremity Inj HPI - General Chief Complaint: High BP Stated Complaint: FELL/HURT (L) ARM Time Seen by Provider: 10/18/20 13:30 Source: patient Mode of arrival: Ambulatory Limitations: No Limitations - History of Present Illness Initial Comments: Patient is a 60-year-old female presents emergency room with complaints of a left elbow injury that occurred just prior to arrival. She states that she was reaching up to grab something while she was at work and accidentally slipped and fell. She states that she landed directly on her left elbow. She is complaining of left elbow pain. She denies any numbness or weakness. She has a past medical history of chronic hypertension. She states that she takes hydralazine, nifedipine, clonidine. She states that despite her medications that her blood pressure always runs high. She states that she is under the care of her primary care doctor. She has an allergy to penicillin. She denies any s ymptoms related to her blood pressure, no headache, vision changes, chest pain, shortness of breath, numbness, weakness, speech disturbance, gait disturbance. - Related Data Previous Rx's Medication Instructions Recorded Last Taken Type Aspirin 325 mg PO DAILY #30 tablet 07/22/17 07/24/20 08:00 Rx Valsartan [Diovan] 160 mg PO Q12HR #60 tablet 10/25/19 07/24/20 08:00 Rx hydrALAZINE [Apresoline TAB] 50 mg PO Q8HR #90 tablet 10/25/19 07/24/20 08:00 Rx NIFEdipine XL [Procardia Xl] 90 mg PO QDAY #30 tablet 07/24/20 Unknown Rx Naproxen 375 mg PO BID PRN #14 tablet 10/18/20 Unknown Rx Allergies Allergy/AdvReac Type Severity Reaction Status Date / Time Penicillins Allergy Swelling Verified 05/13/20 10:53 ED Review of Systems ROS: Stated complaint: FELL/HURT (L) ARM Other details as noted in HPI Comment: All other systems reviewed and negative ED Past Medical Hx - Past Medical History Previous Medical History?: Yes Hx Hypertension: Yes Hx CVA: Yes (11-05-2012) Hx Heart Attack/AMI: No Hx Congestive Heart Failure: No Hx Diabetes: No Hx Deep Vein Thrombosis: No Hx Pulmonary Embolism: No Hx Liver Disease: No Hx Renal Disease: No Hx Sickle Cell Disease: No Hx Arthritis: No Hx Seizures: No Hx Kidney Stones: No Hx Asthma: No Hx COPD: No Hx Tuberculosis: No Hx Dementia: No Hx HIV: No Additional medical history: Aneurysm brain/ GOUT - Surgical History Past Surgical History?: No Hx Coronary Stent: No Hx Pacemaker: No Hx Internal Defibrillator: No - Social History Smoking Status: Never Smoker - Medications Home Medications: Home Medications Medication Instructions Recorded Confirmed Last Taken Type Aspirin 325 mg PO DAILY #30 tablet 07/22/17 07/24/20 07/24/20 08:00 Rx Valsartan [Diovan] 160 mg PO Q12HR #60 tablet 10/25/19 07/24/20 07/24/20 08:00 Rx hydrALAZINE [Apresoline TAB] 50 mg PO Q8HR #90 tablet 10/25/19 07/24/20 07/24/20 08:00 Rx NIFEdipine XL [Procardia Xl] 90 mg PO QDAY #30 tablet 07/24/20 Unknown Rx Naproxen 375 mg PO BID PRN #14 tablet 10/18/20 Unknown Rx ED Physical Exam - General Limitations: No Limitations General appearance: alert, in no apparent distress - Head Head exam: Present: atraumatic, normocephalic - Eye Eye exam: Present: normal appearance - ENT ENT exam: Present: mucous membranes moist - Respiratory Respiratory exam: Absent: respiratory distress, accessory muscle use - Extremities Exam Extremities exam: Present: other (ttp to the left posterior elbow, decreased ROM of the left elbow secondary to pain, no ttp of the hand, wrist, or shoulder, no deformity, neurovascularly intact) - Neurological Exam Neurological exam: Present: alert, oriented X3 - Psychiatric Psychiatric exam: Present: normal affect, normal mood - Skin Skin exam: Present: warm, dry, intact ED Course Vital Signs 10/18/20 10/18/20 13:25 14:28 Temperature 98.2 F Pulse Rate 69 Respiratory 18 16 Rate Blood Pressure 259/129 [Right] O2 Sat by Pulse 100 Oximetry ED Medical Decision Making - Radiology Data Radiology results: report reviewed Ordering Physician: SLADE FRIAS Date of Service: 10/18/20 Procedure(s): XR elbow 3+V LT Accession Number(s): [id number] cc: SLADE FRIAS Fluoro Time In Minutes: LEFT ELBOW 4 VIEWS INDICATION: left elbow pain after slip and fall. COMPARISON: None. IMPRESSION: No acute osseous or soft tissue abnormality. No significant DJD. Signer Name: Armand Dominguez Jr, MD Signed: 10/18/2020 1:57 PM Workstation Name: [id number] Transcribed By: TTR Dictated By: ARMAND DOMINGUEZ JR, MD Electronically Authenticated By: ARMAND DOMINGUEZ JR, MD Signed Date/Time: 10/18/20 1357 DD/ 1356 TD/TT: - Medical Decision Making Patient is a 60-year-old female presents emergency room with complaints of a left elbow injury that occurred just prior to arrival. She states that she was reaching up to grab something while she was at work and accidentally slipped and fell. She states that she landed directly on her left elbow. She is complaining of left elbow pain. She denies any numbness or weakness. She has a past medical history of chronic hypertension. She states that she takes hydralazine, nifedipine, clonidine. She states that despite her medications that her blood pressure always runs high. She states that she is under the care of her primary care doctor. She has an allergy to penicillin. She denies any symptoms related to her blood pressure, no headache, vision changes, chest pain, shortness of breath, numbness, weakness, speech disturbance, gait disturbance. Vitals with significantly elevated blood pressure, otherwise stable. Upon patient's chart review it appears patient's blood pressure is typically very elevated. Patient is completely asymptomatic and she states that her "blood pressure is always high." The up-to-date medical literature does not recommend emergently lowering asymptomatic elevated blood pressure. Advised patient to take another one of her clonidine when she gets home and keep a blood pressure log and to follow-up with her primary care doctor for better blood pressure management. Discussed lifestyle modifications. on exam: ttp to the left posterior elbow, decreased ROM of the left elbow secondary to pain, no ttp of the hand, wrist, or shoulder, no deformity, neurovascularly intact. XR left elbow: IMPRESSION: No acute osseous or soft tissue abnormality. No significant DJD. Symptoms likely related to elbow sprain. Placed in Maurice wrap by EMT and remain neurovascularly intact. Discussed all results with patient answer questions. Discussed case with Dr. Morris, ER attending who is agreeable with plan. advised pt Please take medication as prescribed. Follow-up with your primary care doctor. Follow-up with orthopedic doctor. Please take your blood pressure medication as prescribed by your doctor. Keep a blood pressure log and take this to your primary care doctor. Eat a low-sodium diet. Incorporate 30 to 60 minutes of daily exercise. Increase your water intake. Return to emergency room medially for any new or worse symptoms. Critical care attestation.: If time is entered above; I have spent that time in minutes in the direct care of this critically ill patient, excluding procedure time. ED Disposition Clinical Impression: Left elbow pain, Elevated blood pressure reading Disposition: 01 HOME / SELF CARE / HOMELESS Is pt being admited?: No Does the pt Need Aspirin: No Condition: Stable Instructions: Elbow Sprain, Managing Your Hypertension Additional Instructions: Please take medication as prescribed. Follow-up with your primary care doctor. Follow-up with orthopedic doctor. Please take your blood pressure medication as prescribed by your doctor. Keep a blood pressure log and take this to your primary care doctor. Eat a low-sodium diet. Incorporate 30 to 60 minutes of daily exercise. Increase your water intake. Return to emergency room medially for any new or worse symptoms. Prescriptions: Naproxen 375 mg PO BID PRN #14 tablet PRN Reason: pain Referrals: PRIMARY CARE, [Primary Care Provider] - 2-3 Days GEOVANY ARRIETA MD [Staff Physician] - 2-3 Days ELEUTERIO TERRELL MD [Staff Physician] - 2-3 Days [facility] [Provider Group] - 2-3 Days Forms: Work/School Release Form(ED) Time of Disposition: 14:55 Print Language: SYRIAC
--- NOTE | 2020-10-18 14:01 | XRay Report ---
LEFT ELBOW 4 VIEWS INDICATION: left elbow pain after slip and fall. COMPARISON: None. IMPRESSION: No acute osseous or soft tissue abnormality. No significant DJD. Signer Name: Armand Dominguez Jr, MD Signed: 10/18/2020 1:57 PM Workstation Name: [id number]
== END 2020-10-18 15:15 | disposition home or self-care (01) ==
LOC: ED 13:01
DX: M25.522 Pain in left elbow (principal); R03.0 Elevated blood-pressure reading, without diagnosis of hypertension; I10 Essential (primary) hypertension; Z86.73 Personal history of transient ischemic attack (TIA), and cerebral infarction without residual deficits; Z88.0 Allergy status to penicillin; Z79.899 Other long term (current) drug therapy

== ENCOUNTER 2021-01-28 08:35 | Emergency (ER) | payer SELFPAY ==
[2021-01-28] MEDS ORDERED: ONDANSETRON 4 MG/2 ML INJ IV ONE (09:36)
[2021-01-28] MEDS ORDERED: MORPHINE 4 MG/1 ML INJ IV ONE (09:38)
[2021-01-28] MEDS ORDERED: hydrALAZINE 20 MG/1 ML INJ IV ONE (09:40)
--- NOTE | 2021-01-28 09:41 | Emergency Department Report ---
ED General Adult HPI - General Chief complaint: Headache Stated complaint: HEADACHE Time Seen by Provider: 01/28/21 09:16 Source: patient Mode of arrival: Ambulatory Limitations: No Limitations - History of Present Illness Initial comments: Patient is 70 years old female with history of hypertension and brain aneurysm. Patient presented to the ER complaining of severe headache that started 2 days ago. Patient describes her headache is on the right side. She denied any neck pain. Patient also denied any fever or chills. She denied any nausea or vomiting. No weakness numbness or tingling sensation. No bowel or bladder incontinence. Patient stated that she did not took her blood pressure today and found to be hypertensive with a blood pressure of 243/140. Patient immediately moved to cardiac cath tech bed. Patient received morphine 4 mg and Zofran. Patient also received hydralazine 20 mg IV. Severity scale (0 -10): 10 - Related Data Previous Rx's Medication Instructions Recorded Last Taken Type Aspirin 325 mg PO DAILY #30 tablet 07/22/17 07/24/20 08:00 Rx Valsartan [Diovan] 160 mg PO Q12HR #60 tablet 10/25/19 07/24/20 08:00 Rx hydrALAZINE [Apresoline TAB] 50 mg PO Q8HR #90 tablet 10/25/19 07/24/20 08:00 Rx NIFEdipine XL [Procardia Xl] 90 mg PO QDAY #30 tablet 07/24/20 Unknown Rx Naproxen 375 mg PO BID PRN #14 tablet 10/18/20 Unknown Rx Allergies Allergy/AdvReac Type Severity Reaction Status Date / Time Penicillins Allergy Swelling Verified 01/28/21 08:41 ED Review of Systems ROS: Stated complaint: HEADACHE Other details as noted in HPI Comment: All other systems reviewed and negative Constitutional: denies: chills, fever Respiratory: denies: cough, shortness of breath, SOB with exertion Cardiovascular: denies: chest pain, palpitations Gastrointestinal: denies: abdominal pain, nausea, vomiting Musculoskeletal: denies: back pain Neurological: headache. denies: weakness, numbness, paresthesias, confusion, abnormal gait ED Past Medical Hx - Past Medical History Hx Hypertension: Yes Hx CVA: Yes (11-05-2012) Hx Heart Attack/AMI: No Hx Congestive Heart Failure: No Hx Diabetes: No Hx Deep Vein Thrombosis: No Hx Pulmonary Embolism: No Hx Liver Disease: No Hx Renal Disease: No Hx Sickle Cell Disease: No Hx Arthritis: No Hx Seizures: No Hx Kidney Stones: No Hx Asthma: No Hx COPD: No Hx Tuberculosis: No Hx Dementia: No Hx HIV: No Additional medical history: Aneurysm brain/ GOUT - Surgical History Hx Coronary Stent: No Hx Pacemaker: No Hx Internal Defibrillator: No - Social History Smoking Status: Never Smoker - Medications Home Medications: Home Medications Medication Instructions Recorded Confirmed Last Taken Type Aspirin 325 mg PO DAILY #30 tablet 07/22/17 07/24/20 07/24/20 08:00 Rx Valsartan [Diovan] 160 mg PO Q12HR #60 tablet 10/25/19 07/24/20 07/24/20 08:00 Rx hydrALAZINE [Apresoline TAB] 50 mg PO Q8HR #90 tablet 10/25/19 07/24/20 07/24/20 08:00 Rx NIFEdipine XL [Procardia Xl] 90 mg PO QDAY #30 tablet 07/24/20 Unknown Rx Naproxen 375 mg PO BID PRN #14 tablet 10/18/20 Unknown Rx ED Physical Exam - General Limitations: No Limitations General appearance: alert, in no apparent distress - Head Head exam: Present: atraumatic, normocephalic, normal inspection - Eye Eye exam: Present: normal appearance - ENT ENT exam: Present: normal exam, normal orophraynx, mucous membranes moist - Neck Neck exam: Present: normal inspection, full ROM. Absent: tenderness, meningismus - Respiratory Respiratory exam: Present: normal lung sounds bilaterally - Cardiovascular Cardiovascular Exam: Present: regular rate, normal rhythm, normal heart sounds - GI/Abdominal GI/Abdominal exam: Present: soft, normal bowel sounds. Absent: distended, tenderness, guarding, rebound, rigid, organomegaly, mass, bruit, pulsatile mass, hernia - Extremities Exam Extremities exam: Present: normal inspection, full ROM, normal capillary refill. Absent: tenderness, pedal edema, joint swelling, calf tenderness - Back Exam Back exam: Present: normal inspection, full ROM. Absent: CVA tenderness (R), CVA tenderness (L) - Neurological Exam Neurological exam: Present: alert, oriented X3, CN II-XII intact, normal gait, reflexes normal. Absent: motor sensory deficit - Psychiatric Psychiatric exam: Present: normal mood - Skin Skin exam: Present: warm, intact, normal color ED Course Vital Signs 01/28/21 01/28/21 01/28/21 08:41 10:59 11:00 Temperature 97.9 F Pulse Rate 83 86 Respiratory 14 16 Rate Blood Pressure 240/145 Blood Pressure 243/148 [Left] Blood Pressure [Right] O2 Sat by Pulse 100 Oximetry 01/28/21 11:51 Temperature Pulse Rate 105 H Respiratory Rate Blood Pressure Blood Pressure [Left] Blood Pressure 175/102 [Right] O2 Sat by Pulse Oximetry ED Medical Decision Making - Lab Data Result diagrams: 01/28/21 09:44 01/28/21 09:44 - Radiology Data Radiology results: report reviewed - Medical Decision Making Patient is 70 years old female with history of hypertension and brain aneurysm. Patient presented to the ER complaining of severe headache that started 2 days ago. Patient describes her headache is on the right side. She denied any neck pain. Patient also denied any fever or chills. She denied any nausea or vomiting. No weakness numbness or tingling sensation. No bowel or bladder incontinence. Patient stated that she did not took her blood pressure today and found to be hypertensive with a blood pressure of 243/140. Patient immediately moved to cardiac cath tech bed. Patient received morphine 4 mg and Zofran. Patient also received hydralazine 20 mg IV. Patient stated that she is feeling much better. She was a little bit nauseated so she given Reglan 10 mg with significant improvement. Labs reviewed and is unremarkable. CT brain is negative for acute finding. Patient advised to follow-up with her primary doctor in the next 2 to 3 days and to return to the ER if she develop any new symptoms. Critical care attestation.: If time is entered above; I have spent that time in minutes in the direct care of this critically ill patient, excluding procedure time. ED Disposition Clinical Impression: Acute headache, Malignant hypertension Disposition: HOME / SELF CARE / HOMELESS Is pt being admited?: No Condition: Stable Instructions: Hypertension (ED), General Headache Without Cause, Hypertension, Adult Referrals: PRIMARY CARE, [Primary Care Provider] - 3-5 Days
[2021-01-28 10:29] LABS: Basophils % (Auto) 0.4 % (0.0-1.8); Eosinophils # (Auto) 0.1 K/mm3 (0.0-0.4); Eosinophils % (Auto) 2.4 % (0.0-4.3); Hematocrit 46.6 % (30.3-42.9); Hemoglobin 14.7 gm/dl (10.1-14.3); Lymphocytes # (Auto) 2.3 K/mm3 (1.2-5.4); Lymphocytes % (Auto) 41.4 % (13.4-35.0); Mean Corpuscular HGB Conc 32 % (30-34); Mean Corpuscular Volume 89 fl (79-97); Monocytes # (Auto) 0.5 K/mm3 (0.0-0.8); Monocytes % (Auto) 8.5 % (0.0-7.3); Platelet Count 248 K/mm3 (140-440); Red Blood Count 5.24 M/mm3 (3.65-5.03); Red Cell Distribution Width 14.9 % (13.2-15.2)
[2021-01-28 10:50] LABS: Calcium 9.7 mg/dL (8.4-10.2)
[2021-01-28] MEDS ORDERED: METOCLOPRAMIDE 10 MG/2 ML INJ IV ONE (11:43)
[2021-01-28 11:52] VITALS: BP 175/102
[2021-01-28 12:02] LABS: Bacteria,Urine 1+ /HPF (Negative); Bilirubin,Urine NEG (Negative); Blood,Urine SM (Negative); Color,Urine Yellow (Yellow); Mucus,Urine FEW /HPF; Urobilinogen,Urine < 2.0 mg/dL (<2.0)
--- NOTE | 2021-01-28 13:43 | Cat Scan Report ---
CT head/brain wo con INDICATION: Headache/history of brain aneurysm. TECHNIQUE: All CT scans at this location are performed using CT dose reduction for ALARA by means of automated e xposure control. COMPARISON: Head CT on 07/24/2020 FINDINGS: There is no evidence of hemorrhage, hydrocephalus, brain edema, or mass effect/mass lesion. There is stable confluent chronic small vessel ischemic change of the cerebral white matter. The included paranasal sinuses and mastoid air cells are clear. The orbits appear unremarkable. IMPRESSION: 1. No acute findings or adverse change from prior exams Signer Name: Good Stevenson MD Signed: 01/28/2021 1:39 PM Workstation Name: [id number]
== END 2021-01-28 15:03 | disposition home or self-care (01) ==
LOC: ED 08:35
DX: R51.9 Headache, unspecified (principal); I10 Essential (primary) hypertension; Z88.0 Allergy status to penicillin; Z72.89 Other problems related to lifestyle; Z79.82 Long term (current) use of aspirin; Z79.899 Other long term (current) drug therapy
CPT/HCPCS: 36415; 70450; 80048; 81001; 85025; 87086; 96374; 96375; 99284; J0360; J2270; J2405; J2765

== ENCOUNTER 2021-09-08 22:37 | Emergency (ER) | payer SELFPAY ==
[2021-09-08] MEDS ORDERED: fentaNYL 100 MCG/2 ML INJ IV ONE (23:30)
--- NOTE | 2021-09-09 00:08 | Emergency Department Report ---
ED Fall HPI - General Chief Complaint: Fall Stated Complaint: RT HIP PAIN Time Seen by Provider: 09/08/21 23:29 Source: EMS Mode of arrival: Stretcher - History of Present Illness Initial Comments: 61-year-old female with a history of CVA with right sided paralysis who now presents with a fall from her bed associated with right hip discomfort. Patient is pointing to his right hip as location of the pain. She is rating the pain as 6-7 over 10 in severity. No fever or chills reported no other modifying or associated factors reported. - Related Data Previous Rx's Medication Instructions Recorded Last Taken Type Aspirin 325 mg PO DAILY #30 tablet 07/22/17 07/24/20 08:00 Rx Valsartan [Diovan] 160 mg PO Q12HR #60 tablet 10/25/19 07/24/20 08:00 Rx hydrALAZINE [Apresoline TAB] 50 mg PO Q8HR #90 tablet 10/25/19 07/24/20 08:00 Rx NIFEdipine XL [Procardia Xl] 90 mg PO QDAY #30 tablet 07/24/20 Unknown Rx Naproxen 375 mg PO BID PRN #14 tablet 10/18/20 Unknown Rx Ondansetron [Zofran Odt] 4 mg PO Q8HR PRN #14 tab.rapdis 01/28/21 Unknown Rx traMADoL [Ultram 50 MG tab] 50 mg PO Q4HR PRN #14 tablet 01/28/21 Unknown Rx Cyclobenzaprine [Flexeril] 10 mg PO TID PRN 10 Days #30 tab NS 09/09/21 Unknown Rx Ketorolac [Toradol] 10 mg PO Q6H PRN 5 Days #20 tab NS 09/09/21 Unknown Rx Allergies Allergy/AdvReac Type Severity Reaction Status Date / Time Penicillins Allergy Swelling Verified 01/28/21 08:41 ED Review of Systems ROS: Stated complaint: RT HIP PAIN Other details as noted in HPI Comment: All other systems reviewed and negative Musculoskeletal: arthralgia (Right hip pain from a fall) ED Past Medical Hx - Past Medical History Previous Medical History?: Yes Hx Hypertension: Yes Hx CVA: Yes (11-05-2012) Hx Heart Attack/AMI: No Hx Congestive Heart Failure: No Hx Diabetes: No Hx Deep Vein Thrombosis: No Hx Pulmonary Embolism: No Hx Liver Disease: No Hx Renal Disease: No Hx Sickle Cell Disease: No Hx Arthritis: No Hx Seizures: No Hx Kidney Stones: No Hx Asthma: No Hx COPD: No Hx Tuberculosis: No Hx Dementia: No Hx HIV: No Additional medical history: Aneurysm brain/ GOUT - Surgical History Past Surgical History?: No Hx Coronary Stent: No Hx Pacemaker: No Hx Internal Defibrillator: No - Social History Smoking Status: Never Smoker - Medications Home Medications: Home Medications Medication Instructions Recorded Confirmed Last Taken Type Aspirin 325 mg PO DAILY #30 tablet 07/22/17 07/24/20 07/24/20 08:00 Rx Valsartan [Diovan] 160 mg PO Q12HR #60 tablet 10/25/19 07/24/20 07/24/20 08:00 Rx hydrALAZINE [Apresoline TAB] 50 mg PO Q8HR #90 tablet 10/25/19 07/24/20 07/24/20 08:00 Rx NIFEdipine XL [Procardia Xl] 90 mg PO QDAY #30 tablet 07/24/20 Unknown Rx Naproxen 375 mg PO BID PRN #14 tablet 10/18/20 Unknown Rx Ondansetron [Zofran Odt] 4 mg PO Q8HR PRN #14 tab.rapdis 01/28/21 Unknown Rx traMADoL [Ultram 50 MG tab] 50 mg PO Q4HR PRN #14 tablet 01/28/21 Unknown Rx Cyclobenzaprine [Flexeril] 10 mg PO TID PRN 10 Days #30 tab NS 09/09/21 Unknown Rx Ketorolac [Toradol] 10 mg PO Q6H PRN 5 Days #20 tab NS 09/09/21 Unknown Rx ED Physical Exam - General Limitations: Physical Limitation General appearance: alert, in distress (Due to pain in the right hip) - Head Head exam: Present: atraumatic, normal inspection - Eye Eye exam: Present: normal appearance Pupils: Present: normal accommodation - ENT ENT exam: Present: normal exam, normal orophraynx, mucous membranes moist - Neck Neck exam: Absent: tenderness - Respiratory Respiratory exam: Present: normal lung sounds bilaterally. Absent: respiratory distress, accessory muscle use - Cardiovascular Cardiovascular Exam: Present: regular rate, normal rhythm, normal heart sounds - GI/Abdominal GI/Abdominal exam: Present: soft, normal bowel sounds. Absent: distended, tenderness - Extremities Exam Extremities exam: Present: other (Right upper and lower limb paralysis) - Back Exam Back exam: Present: normal inspection - Neurological Exam Neurological exam: Present: alert, oriented X3 - Psychiatric Psychiatric exam: Present: normal affect, normal mood - Skin Skin exam: Present: warm, normal color ED Course Vital Signs 09/08/21 09/08/21 09/09/21 22:42 22:52 02:27 Temperature 98 F 98.9 F Pulse Rate 92 H 78 80 Respiratory 16 15 Rate Blood Pressure 145/97 169/96 Blood Pressure 142/78 [Right] O2 Sat by Pulse 100 98 Oximetry ED Medical Decision Making - Medical Decision Making Fall with right hip pain-will get xray to rule out fx or dislocation-- given Fentanyl 50 mcg for symptomatic relieve while waiting for the xray-- Noted with elevated blood pressure likely as a result of the hip pain-- will add hydralyzine 20 mg but then noticed blood pressure now at 169/97 so will give only 10 mg instead of the initially ordered 20 mg hydralyzine. Xr right hip with no fx or dislocation noted but with high suspicion of injury will go ahead and order CT pelvic for better resolution -- CT pelvic resulted FINDINGS: Thickness of acquisition reduces sensitivity for nondisplaced fracture. BONES: No fracture. No osseous lesion. HIP JOINTS: Moderate bilateral osteonecrosis of the femoral heads more pronounced on the left. Articular surfaces remain smooth bilaterally. SACROILIAC JOINTS: No significant abnormality. SOFT TISSUES: No significant abnormality. LOWER LUMBAR SPINE: No significant abnormality. SOFT TISSUES WITHIN PELVIS: Diffuse iliofemoral arterial calcifications. Moderate stool within the rectal vault. ADDITIONAL FINDINGS: None. IMPRESSION: 1. Bilateral osteonecrosis of the femoral heads without evidence of acute collapse or fracture. MRI may be useful for further evaluation for subtle bone marrow edema. Will have patient follow up with her PCP --for possible MRI if symptoms worsen Critical care attestation.: If time is entered above; I have spent that time in minutes in the direct care of this critically ill patient, excluding procedure time. ED Disposition Clinical Impression: Right hip pain, Hypertensive urgency Fall Qualifiers: Encounter type: initial encounter Qualified Code(s): W19.XXXA - Unspecified fall, initial encounter Disposition: HOME / SELF CARE / HOMELESS Is pt being admited?: No Does the pt Need Aspirin: No Condition: Stable Instructions: How to Use Cold Therapy, [id number], Hypertension, Adult, [id number]-[id number], Joint Pain, Syev-mo-Olqq Additional Instructions: Please follow the above printed instruction to help your symptoms Call and follow-up with your primary doctor in the next 3 to 5 days for progress Call or return to emergency room if your symptoms worsen Prescriptions: Cyclobenzaprine [Flexeril] 10 mg PO TID PRN 10 Days #30 tab NS PRN Reason: Muscle Spasm Ketorolac [Toradol] 10 mg PO Q6H PRN 5 Days #20 tab NS PRN Reason: Pain Referrals: PRIMARY CARE,MD [Primary Care Provider] - 3-5 Days Time of Disposition: 04:16
--- NOTE | 2021-09-09 00:58 | XRay Report ---
RIGHT HIP 3 VIEW(S) INDICATION / CLINICAL INFORMATION: fall COMPARISON: None available. FINDINGS: The right hip is not completely visualized secondary to degree of rotation and wires overlying the ri ght hip. No displaced fractures of the pelvis or left hip are demonstrated. IMPRESSION: 1. No displaced fractures of the right hip. CT right hip recommended for further evaluation if clinic al suspicion for fracture is high. Signer Name: Martínez Melendez II, MD Signed: 09/09/2021 12:53 AM Workstation Name: [id number]
[2021-09-09] MEDS ORDERED: hydrALAZINE 20 MG/1 ML INJ IV ONE (02:09)
--- NOTE | 2021-09-09 03:17 | Cat Scan Report ---
CT PELVIS WITHOUT CONTRAST INDICATION / CLINICAL INFORMATION: fall with right hip pain. TECHNIQUE: Axial CT images were obtained through the pelvis without contrast. All CT scans at this [facility] are performed using CT dose reduction for ALARA by means of automated exposure control. COMPARISON: None available. FINDINGS: Thickness of acquisition reduces sensitivity for nondisplaced fracture. BONES: No fracture. No osseous lesion. HIP JOINTS: Moderate bilateral osteonecrosis of the femoral heads more pronounced on the left. Articu lar surfaces remain smooth bilaterally. SACROILIAC JOINTS: No significant abnormality. SOFT TISSUES: No significant abnormality. LOWER LUMBAR SPINE: No significant abnormality. SOFT TISSUES WITHIN PELVIS: Diffuse iliofemoral arterial calcifications. Moderate stool within the re ctal vault. ADDITIONAL FINDINGS: None. IMPRESSION: 1. Bilateral osteonecrosis of the femoral heads without evidence of acute collapse or fracture. MRI m ay be useful for further evaluation for subtle bone marrow edema. Signer Name: Martínez Melendez II, MD Signed: 09/09/2021 3:13 AM Workstation Name: [id number]
[2021-09-09 05:44] VITALS: BP 137/82
== END 2021-09-09 07:00 | disposition home or self-care (01) ==
LOC: ED 22:37 → EEVIPCON 22:37 → ED 09-09 07:00
DX: M25.551 Pain in right hip (principal); I16.0 Hypertensive urgency; Z86.73 Personal history of transient ischemic attack (TIA), and cerebral infarction without residual deficits; M10.9 Gout, unspecified; Z88.0 Allergy status to penicillin; W06.XXXA Fall from bed, initial encounter; Y93.89 Activity, other specified; Y92.89 Other specified places as the place of occurrence of the external cause; Y99.8 Other external cause status
CPT/HCPCS: 72192; 73502; 96374; 96375; 99284; J0360; J3010

== ENCOUNTER 2021-10-26 11:05 | Emergency (ER) | payer SELFPAY ==
[2021-10-27] MEDS ORDERED: ONDANSETRON 4 MG/2 ML INJ IV ONE (03:33)
[2021-10-27] MEDS ORDERED: fentaNYL 100 MCG/2 ML INJ IV ONE (03:33)
--- NOTE | 2021-10-27 04:16 | Emergency Department Report ---
HPI - HPI HPI: Room 20 The patient is a 61-year-old female present with a chief complaint of right flank pain. The patient states her symptoms began at 10 AM yesterday with sharp stabbing pain in her right flank. Patient states the pain has been constant in nature. Patient denies nausea/vomiting, dysuria or hematuria. Patient denies history of fever. Patient currently gives her pain a score of 10/10 <SKY LAZARO - Last Filed: 10/27/21 04:53> <MAGO MONTES - Last Filed: 10/27/21 08:03> - General Chief Complaint: Pain General Time Seen by Provider: 10/27/21 03:27 ED Past Medical Hx - Past Medical History Previous Medical History?: Yes Hx Hypertension: Yes Hx CVA: Yes (11-05-2012, ) Additional medical history: Aneurysm brain/ GOUT - Family History Family history: no significant - Social History Smoking Status: Former Smoker Substance Use Type: None (Denies illicit drug use) <SKY LAZARO - Last Filed: 10/27/21 04:53> <MAGO MONTES - Last Filed: 10/27/21 08:03> - Medications Home Medications: Home Medications Medication Instructions Recorded Confirmed Last Taken Type Aspirin 325 mg PO DAILY #30 tablet 07/22/17 07/24/20 07/24/20 08:00 Rx Valsartan [Diovan] 160 mg PO Q12HR #60 tablet 10/25/19 07/24/20 07/24/20 08:00 Rx hydrALAZINE [Apresoline TAB] 50 mg PO Q8HR #90 tablet 10/25/19 07/24/20 07/24/20 08:00 Rx NIFEdipine XL [Procardia Xl] 90 mg PO QDAY #30 tablet 07/24/20 Unknown Rx Naproxen 375 mg PO BID PRN #14 tablet 10/18/20 Unknown Rx Ondansetron [Zofran Odt] 4 mg PO Q8HR PRN #14 tab.rapdis 01/28/21 Unknown Rx traMADoL [Ultram 50 MG tab] 50 mg PO Q4HR PRN #14 tablet 01/28/21 Unknown Rx Cyclobenzaprine [Flexeril] 10 mg PO TID PRN 10 Days #30 tab NS 09/09/21 Unknown Rx Ketorolac [Toradol] 10 mg PO Q6H PRN 5 Days #20 tab NS 09/09/21 Unknown Rx ED Review of Systems ROS: Stated complaint: STROKE Other details as noted in HPI Constitutional: denies: fever Eyes: denies: eye pain ENT: denies: throat pain Respiratory: no symptoms reported Cardiovascular: denies: chest pain Endocrine: no symptoms reported Gastrointestinal: abdominal pain. denies: nausea, vomiting Genitourinary: denies: dysuria, hematuria Musculoskeletal: back pain Neurological: denies: headache <SKY LAZARO - Last Filed: 10/27/21 04:53> ROS: Stated complaint: STROKE Other details as noted in HPI <MAGO MONTES - Last Filed: 10/27/21 08:03> Physical Exam - Physical Exam Vital Signs: Vital Signs 10/26/21 11:30 Temperature 97.9 F Pulse Rate 117 H Respiratory 20 Rate Blood Pressure 173/107 [Left] Physical Exam: GENERAL: The patient is well-developed well-nourished female lying on stretcher not appearing to be in acute distress. [] HEENT: Normocephalic. Atraumatic. Extraocular motions are intact. Patient has moist mucous membranes. NECK: Supple. Trachea midline CHEST/LUNGS: Clear to auscultation. There is no respiratory distress noted. HEART/CARDIOVASCULAR: Regular. There is no tachycardia. There is no gallop rub or murmur. ABDOMEN: Abdomen is soft, with mild discomfort to palpation in the right upper quadrant, right lower quadrant. Patient has normal bowel sounds. There is no abdominal distention. SKIN: There is no rash. There is no edema. There is no diaphoresis. NEURO: The patient is awake, alert, and oriented. The patient is cooperative. The patient has right hemiparesis from previous CVA. GCS 15 MUSCULOSKELETAL: There is right CVA tenderness. There is no evidence of acute injury. <SKY LAZARO - Last Filed: 10/27/21 04:53> - Physical Exam Vital Signs: Vital Signs 10/26/21 10/27/21 11:30 05:00 Temperature 97.9 F 98 F Pulse Rate 117 H 83 Respiratory 20 18 Rate Blood Pressure 140/89 Blood Pressure 173/107 [Left] O2 Sat by Pulse 100 Oximetry <MOMAGO PIERRE - Last Filed: 10/27/21 08:03> ED Course Vital Signs 10/26/21 11:30 Temperature 97.9 F Pulse Rate 117 H Respiratory 20 Rate Blood Pressure 173/107 [Left] <SKY LAZARO Andre - Last Filed: 10/27/21 04:53> Vital Signs 10/26/21 10/27/21 11:30 05:00 Temperature 97.9 F 98 F Pulse Rate 117 H 83 Respiratory 20 18 Rate Blood Pressure 140/89 Blood Pressure 173/107 [Left] O2 Sat by Pulse 100 Oximetry <MAGO MONTES - Last Filed: 10/27/21 08:03> ED Medical Decision Making - Radiology Data Radiology results: report reviewed (CT abdomen pelvis), image reviewed (CT abdomen pelvis) [place] [id number] Cat Scan Report Signed Patient: MADELAINE EDGAR MR#: [id number] : 1960 Acct:[id number] Age/Sex: 61 / F ADM Date: 10/26/21 Loc: ED Attending Dr: Ordering Physician: SKY LAZARO MD Date of Service: 10/27/21 Procedure(s): CT abdomen pelvis wo con Accession Number(s): [id number] cc: SKY LAZARO MD CT ABDOMEN AND PELVIS WITHOUT CONTRAST INDICATION / CLINICAL INFORMATION: Right flank pain. TECHNIQUE: Axial CT images were obtained through the abdomen and pelvis without IV contrast. All CT scans at this location are performed using CT dose reduction for ALARA by means of automated exposure control. COMPARISON: CT pelvis 09/09/2021 FINDINGS: LOWER CHEST: No significant abnormality of the imaged chest. LIVER: No focal lesion. No acute findings. GALLBLADDER / BILE DUCTS: No significant abnormality. Biliary ducts grossly unremarkable. SPLEEN: No significant abnormality. PANCREAS: No significant abnormality. ADRENALS: No significant abnormality. KIDNEYS/URETERS: 1 to 2 mm lower pole nonobstructing nephrolith right kidney. 1.1 cm cyst upper pole left kidney. No additional urolithiasis. STOMACH / DUODENUM / SMALL BOWEL: The stomach, duodenum, and small bowel demonstrate no significant abnormality. No specific abnormality of the mesentery demonstrated. COLON: No significant abnormality. APPENDIX: No significant abnormality. PERITONEUM: No free air or free fluid are present within the abdomen or pelvis. LYMPH NODES: No significant adenopathy. AORTA / ARTERIES: Moderate atherosclerotic calcification without acute abnormality. IVC / VEINS: No significant abnormality. URINARY BLADDER: No significant abnormality. REPRODUCTIVE ORGANS: No significant abnormality. SKELETAL SYSTEM: Moderate bilateral osteonecrosis of the femoral heads more pronounced on the left than right. The femoral heads remain spherical. ADDITIONAL ABDOMINAL/PELVIC FINDINGS: None. IMPRESSION: 1. Nonobstructing right-sided nephrolith with no additional evidence of uroli thiasis. No acute findings are demonstrated. 2. Bilateral femoral head osteonecrosis more prevalent on the left than right. Signer Name: Kesha Guerra II, MD Signed: 10/27/2021 4:44 AM Workstation Name: [id number] Transcribed By: CAROLEE Dictated By: KESHA GUERRA II, MD Electronically Authenticated By: KESHA GUERRA II, MD Signed Date/Time: 10/27/21443 DD/ 8 TD/TT: - Differential Diagnosis Renal colic, pyelonephritis, cholelithiasis <SKY LAZARO - Last Filed: 10/27/21 04:53> - Lab Data Result diagrams: 10/27/21 04:51 10/27/21 04:51 - Medical Decision Making UA showed hematuria , pain meds given <MAGO MONTES - Last Filed: 10/27/21 08:03> Critical care attestation.: If time is entered above; I have spent that time in minutes in the direct care of this critically ill patient, excluding procedure time. <SKY LAZARO - Last Filed: 10/27/21 04:53> Critical care attestation.: If time is entered above; I have spent that time in minutes in the direct care of this critically ill patient, excluding procedure time. <MAGO MONTES - Last Filed: 10/27/21 08:03> ED Disposition <SKY LAZARO - Last Filed: 10/27/21 04:53> Is pt being admited?: No Does the pt Need Aspirin: No <MAGO MONTES - Last Filed: 10/27/21 08:03> Clinical Impression: Renal colic Disposition: 07 LEFT WITHOUT BEING SEEN Condition: Stable
--- NOTE | 2021-10-27 04:48 | Cat Scan Report ---
CT ABDOMEN AND PELVIS WITHOUT CONTRAST INDICATION / CLINICAL INFORMATION: Right flank pain. TECHNIQUE: Axial CT images were obtained through the abdomen and pelvis without IV contrast. All CT scans at this location are performed using CT dose reduction for ALARA by means of automated exposure control. COMPARISON: CT pelvis 09/09/2021 FINDINGS: LOWER CHEST: No significant abnormality of the imaged chest. LIVER: No focal lesion. No acute findings. GALLBLADDER / BILE DUCTS: No significant abnormality. Biliary ducts grossly unremarkable. SPLEEN: No significant abnormality. PANCREAS: No significant abnormality. ADRENALS: No significant abnormality. KIDNEYS/URETERS: 1 to 2 mm lower pole nonobstructing nephrolith right kidney. 1.1 cm cyst upper pole left kidney. No additional urolithiasis. STOMACH / DUODENUM / SMALL BOWEL: The stomach, duodenum, and small bowel demonstrate no significant a bnormality. No specific abnormality of the mesentery demonstrated. COLON: No significant abnormality. APPENDIX: No significant abnormality. PERITONEUM: No free air or free fluid are present within the abdomen or pelvis. LYMPH NODES: No significant adenopathy. AORTA / ARTERIES: Moderate atherosclerotic calcification without acute abnormality. IVC / VEINS: No significant abnormality. URINARY BLADDER: No significant abnormality. REPRODUCTIVE ORGANS: No significant abnormality. SKELETAL SYSTEM: Moderate bilateral osteonecrosis of the femoral heads more pronounced on the left th an right. The femoral heads remain spherical. ADDITIONAL ABDOMINAL/PELVIC FINDINGS: None. IMPRESSION: 1. Nonobstructing right-sided nephrolith with no additional evidence of urolithiasis. No acute findin gs are demonstrated. 2. Bilateral femoral head osteonecrosis more prevalent on the left than right. Signer Name: Martínez Melendez II, MD Signed: 10/27/2021 4:44 AM Workstation Name: [id number]
[2021-10-27 05:28] LABS: Basophils % (Auto) 0.3 % (0.0-1.8); Eosinophils # (Auto) 0.2 K/mm3 (0.0-0.4); Eosinophils % (Auto) 3.9 % (0.0-4.3); Hematocrit 35.6 % (30.3-42.9); Hemoglobin 11.6 gm/dl (10.1-14.3); Lymphocytes # (Auto) 1.9 K/mm3 (1.2-5.4); Lymphocytes % (Auto) 32.4 % (13.4-35.0); Mean Corpuscular HGB Conc 33 % (30-34); Mean Corpuscular Volume 87 fl (79-97); Monocytes # (Auto) 0.6 K/mm3 (0.0-0.8); Monocytes % (Auto) 10.4 % (0.0-7.3); Platelet Count 260 K/mm3 (140-440); Red Blood Count 4.12 M/mm3 (3.65-5.03); Red Cell Distribution Width 14.6 % (13.2-15.2)
[2021-10-27 05:43] LABS: Alanine Aminotransferase 11 units/L (7-56); Albumin 4.4 g/dL (3.9-5); BUN/Creatinine Ratio 18; Blood Urea Nitrogen 20 mg/dL (7-17); Calcium 9.4 mg/dL (8.4-10.2); Hemolysis Index 3
[2021-10-27] MEDS ORDERED: ONDANSETRON 4 MG/2 ML INJ ONE (06:40)
[2021-10-27] MEDS ORDERED: fentaNYL 100 MCG/2 ML INJ ONE (06:40)
[2021-10-27 07:18] LABS: Bacteria,Urine 4+ /HPF (Negative); Mucus,Urine FEW /HPF; WBC,Urine < 1.0 /HPF (0.0-6.0)
[2021-10-27 07:56] LABS: Color,Urine Yellow (Yellow)
[2021-10-27 08:39] VITALS: BP 145/98
== END 2021-10-27 09:57 | disposition left against medical advice (07) ==
LOC: ED 11:05
DX: N23 Unspecified renal colic (principal); I10 Essential (primary) hypertension; Z86.73 Personal history of transient ischemic attack (TIA), and cerebral infarction without residual deficits; Z87.891 Personal history of nicotine dependence
CPT/HCPCS: 36415; 74176; 80053; 81001; 83690; 85025; 96374; 96375; 99284; J2405; J3010